=== PATIENT | male | born 1955 | race Caucasian/White ===

== ENCOUNTER 2018-12-30 12:26 | Inpatient (IN) ==
[2018-12-30] MEDS ORDERED: DUONEB (A & A) INH ONE (12:44)
[2018-12-30] MEDS ORDERED: ALBUTEROL NEB INH ONE (12:44)
[2018-12-30] MEDS ORDERED: SOLU-MEDROL IV ONE (12:45)
[2018-12-30 13:21] LABS: BASO# 0.07 X1000 (0.0-0.2); BASO% 0.8 % (0.0-0.8); EOS# 0.62 X1000 (0.0-0.7); HEMATOCRIT 40.5 % (42.0-52.0); HEMOGLOBIN 13.6 g/dL (14.0-18.0); IMM GRAN# 0.08 X1000 (0.0-0.04); IMM GRAN% 0.9 % (0.0-0.5); LYMPH# 1.21 X1000 (1.2-3.4); LYMPH% 13.6 % (20.5-51.1); MCH 27.4 PG (27-31); MCHC 33.6 g/dL (33-37); MCV 81.7 FL (81-99); MONO# 0.54 X1000 (0.11-0.59); MONO% 6.1 % (1.7-9.3); MPV 9.9 FL (7.4-10.4); NEUT# 6.39 X1000 (1.4-6.5); NEUT% 71.6 % (42.2-75.2); PLT 301 X1000 (130-400); RBC 4.96 XMIL (4.7-6.1); RDW 14.6 % (11.5-14.5); WBC 8.91 X1000 (4.8-10.8)
[2018-12-30 13:41] LABS: INR 0.88; PROTIME 12.4 Seconds (11.0-16.0)
[2018-12-30 13:46] LABS: BLOOD TYPE ARTERIAL; HCO3-(ACT) 27.1 mmoll (20.0-26.0); METHB 1.1 % (0.0-1.5); O2(CT) 16.7 mL/dL (15.0-23.0); O2HB 91.6 % (95.0-99.0); PCO2(98.6) 43 mmHg (35-45); PO2(98.6) 59 mmHg (60-100); SAMPLE BLOOD; SAO2 95.1 % (95.0-100.0); pH(98.6) 7.42 (7.35-7.45)
[2018-12-30 13:51] LABS: AGAP 12; ALBUMIN 4.4 g/dL (3.5-5.0); ALKALINE PHOSPHATASE 92 U/L (32-122); BUN 15 mg/dL (8-22); CALCIUM 9.2 mg/dL (8.8-10.2); CHLORIDE 102 mmol/L (98-107); COSMO 284; ESTIMATED GFR > 60; GLUCOSE 91 mg/dL (70-104); GOT 18 U/L (10-34); GPT 20 U/L (10-44); POTASSIUM 4.1 mmol/L (3.5-5.1); SODIUM 142 mmol/L (136-145); TCO2 28 mmol/L (25-35); TOTAL PROTEIN 6.8 g/dL (6.3-8.3)
[2018-12-30 13:52] LABS: ALLEN TEST YES; MODALITY ROOM AIR
--- NOTE | 2018-12-30 14:25 | EKG Report ---
Test Performed on : 12/30/2018 1:24:08 PM Test Reason : SOB Blood Pressure : / mmHG Vent. Rate : 073 BPM Atrial Rate : 073 BPM P-R Int : 136 ms QRS Dur : 094 ms QT Int : 388 ms P-R-T Axes : 036 027 038 degrees QTc Int : 427 ms Normal sinus rhythm. Normal ECG No previous ECGs available Unconfirmed Result
--- NOTE | 2018-12-30 15:02 | Diag Imaging Result Doc PS360 ---
EXAM: CT THORAX/ABD/PELVIS W/CON - 12/30/2018 HISTORY: SOB ECCYMOSES TECHNIQUE: CT thorax and abdomen/pelvis with intravenous contrast COMPARISON: None. FINDINGS: CT thorax: There is a small left pleural effusion. There is mild dependent atelectasis on the left. There is some consolidation in the paraspinal right lower lobe. This is located near thoracic spine osteophytes and conceivably could represent pulmonary contusion. The remainder of the lungs appear essentially clear. There is no pneumothorax identified. There is no mediastinal hematoma or pericardial fluid identified. There are no abnormally enlarged mediastinal or hilar lymph nodes identified. Other than thoracic spondylosis, the visualized bony structures appear grossly intact. CT abdomen/pelvis: There is some subcutaneous edema at the anterior abdominal wall and left lateral abdominal wall. There is no peritoneal or retroperitoneal hematoma identified in the abdomen or pelvis. There is mild hepatosplenomegaly. The liver and spleen show no focal lesion or evidence. There are no substantial abnormalities of the adrenal glands, pancreas, or kidneys (other than a 3.5 cm left renal cyst) identified. There are multiple mildly enlarged retroperitoneal lymph nodes. There are chronic appearing pars interarticularis defects at L4, and there are lumbar spine degenerative changes noted. There is no evidence of bowel obstruction. There is no abnormal bowel wall thickening identified. IMPRESSION: CT thorax: Small left pleural effusion. Focal consolidation at the paraspinal right lower lobe. This is nonspecific but could possibly relate to pulmonary contusion near thoracic spine osteophytes. No pneumothorax. CT abdomen/pelvis: Subcutaneous edema at anterior and left lateral abdominal wall. No evidence of injury within the abdomen or pelvis. Mild hepatosplenomegaly. Retroperitoneal adenopathy. Chronic appearing L4 pars interarticularis defects and lumbar spine degenerative changes noted. This exam was performed using automated exposure control, adjustment of mA or kV according to patient size, and/or use of iterative reconstruction technique. Electronically signed by Atul Jacobs 12/30/2018 2:59 PM
[2018-12-30] MEDS ORDERED: MORPHINE IV ONE (15:10)
--- NOTE | 2018-12-30 15:28 | PROVIDER DOCUMENTATION ---
This chart was entered by Varsha Cantrell Scribe, acting as scribe for Pratik Moya MD. HPI-Respiratory General - General Chief Complaint: General Adult Stated Complaint: BRUSING ABD / BACK Time Seen by Provider: 12/30/18 12:39 Source: patient, family () Allergies/Adverse Reactions: Patient Allergies Allergy/AdvReac Type Severity Reaction Status Date / Time No Known Allergies Allergy Verified 12/30/18 13:20 Home Medications: Home Medication List Medication Instructions Recorded Confirmed Last Taken Type Oxycodone HCl/Acetaminophen 1 ea PO Q4-6H PRN PRN #20 tab 10/28/17 Unknown Rx [Percocet 7.5-325 mg Tablet] Cyclobenzaprine [Flexeril] 10 mg PO TID #20 tab 02/15/18 Unknown Rx Ibuprofen [Motrin] 800 mg PO Q8H PRN PRN #20 tab 02/15/18 Unknown Rx Omeprazole 20 mg PO DAILY #20 tablet. 02/15/18 Unknown Rx - History of Present Illness-Resp Nature of Presenting Problem: 63 yowm presents to the ed with c/o cough, sob, wheezing and erythema noted to lower abd. pt has been to [facility] ED 2x and went to see pcp dr morrison this am and was sent to ed. pt has recent dx of PNA in left lung and has had 2 chest xray in the last 5 days. pt has wheezing on exam and redness and distended abd Quality of Pain: reports: burning Severity in ED: reports: moderate Onset/Duration: reports: 5 days ago Timing: reports: still present, getting worse Context: reports: other (recent dx PNA and given new abx) Cough Quality/Degree: reports: dry cough Episode Frequency: frequent episodes Current Respiratory Medication Therapy: Initiated see nurses note Modifying Factors: worse with: exertion, coughing Associated Symptoms: reports: cough, shortness of breath, wheezing, other (abd pain). denies: chest pain/soreness Similar Symptoms Previously?: Yes (dx with PNA recently at [facility] ER) Recently seen or treated by another doctor?: Yes (saw dr morrison pcp) Review of Systems - Adult - REVIEW OF SYSTEMS - ADULT Constitutional: denies: chills, fever Eyes: reports: no symptoms reported Ears, Nose, Mouth & Throat: reports: no symptoms reported Cardiovascular: denies: chest pain, palpitations Respiratory: reports: see HPI, cough, dyspnea on exertion, shortness of breath, wheezing Gastrointestinal: reports: see HPI, abdominal pain. denies: diarrhea, nausea, vomiting Genitourinary: reports: no symptoms reported Musculoskeletal: denies: back pain, neck pain Integumentary: reports: see HPI, other (erythemia to lower abd) Neurological: denies: dizziness/vertigo, headache/migraines Psychiatric: reports: no symptoms reported Endocrine: reports: no symptoms reported Hematologic/Lymphatic: reports: no symptoms reported Allergic/Immunologic: reports: no symptoms reported All Other Systems: Reviewed and Negative Past History - Adult - PAST MEDICAL HISTORY-ADULT Review of Records: reports: Old Records Reviewed, Nursing Assessment Review, Medications Reviewed, Social history reviewed & non-contributory. Major Childhood Illnesses: reports: denies history Cardiovascular: reports: denies history Respiratory: reports: denies history Gastrointestinal: reports: denies history Genitourinary: reports: denies history Musculoskeletal: reports: chronic pain, intervertebral disc disease Hand Dominance: Right Handed Neurological: reports: denies history Psychiatric: reports: denies history Endocrine/Immune: reports: denies history Other Conditions: reports: denies history - PRIOR SURGERIES/PROCEDURES Surgical/Procedure History: reports: reviewed, not pertinent - IMMUNIZATION STATUS Childhood Immunizations: See Nurse Assessment Flu Vaccine: See Nurse Assessment - FAMILY HISTORY Family History: reviewed, not pertinent - SOCIAL HISTORY Smoking: denies Substance Use: denies Living Situation: family Physical Exam-General - PHYSICAL EXAM-ADULT Initial Vital Signs Reviewed: Yes - CONSTITUTIONAL General Appearance: alert, mild distress, obese - EYES Eyes: PERRL/EOMI, pink conjunctivae - HEAD, EARS, NOSE, MOUTH & THROAT HENMT: moist mucous membranes, normal ENT inspection - NECK Neck: non-tender, supple, normal inspection - RESPIRATORY Respiratory: chest non-tender, respiratory distress (mild), decreased breath sounds (LLL), wheezing (auditory), increased rate (24). negative: normal breath sounds - CARDIOVASCULAR Cardiovascular: normal peripheral pulses, regular rate, rhythm - CHEST (BREASTS) Chest/Breast: deferred - GASTROINTESTINAL (ABDOMEN) Abdominal Exam: normal bowel sounds, distended, tenderness (with palpation), other (erythemia greater on lft then right over lower abd and around to side). negative: guarding, rigid, rebound - LYMPHATIC Lymphatic: no adenopathy - MUSCULOSKELETAL Back Exam: normal inspection, no CVA tenderness, no vertebral tenderness Extremity: normal range of motion, non-tender, normal gait, normal inspection, no calf tenderness, normal capillary refill, pelvis stable - SKIN Integumentary: normal turgor, warm/dry, erythema (lower abd and left side) - NEUROLOGIC Neurologic: grossly normal, no motor/sensory deficits - PSYCHIATRIC Psych/Mental Status: normal mood/affect, normal thought content, normal thought process, oriented x 3 Progress - PLAN OF CARE/RESULTS Progress/Plan/Lab Results: Vital Signs - 8 hr 12/30/18 12:33 12/30/18 13:37 12/30/18 14:39 Temperature 98.1 F Pulse Rate 85 69 86 Respiratory Rate 19 27 H 20 Blood Pressure 143/70 130/70 O2 Sat by Pulse Oximetry 95 93 L 95 Laboratory Results - last 24 hr 12/30/18 12/30/18 12/30/18 13:10 13:10 13:10 WBC 8.91 RBC 4.96 Hgb 13.6 L Hct 40.5 L MCV 81.7 MCH 27.4 MCHC 33.6 RDW Std Deviation 14.6 H Plt Count 301 MPV 9.9 Immature Gran % (Auto) 0.9 H Neut % (Auto) 71.6 Lymph % (Auto) 13.6 L Hoke % (Auto) 6.1 Eos % (Auto) 7.0 Baso % (Auto) 0.8 Immature Gran # (Auto) 0.08 H Neut # (Auto) 6.39 Lymph # (Auto) 1.21 [place]oke # (Auto) 0.54 Eos # (Auto) 0.62 Baso # (Auto) 0.07 PT INR PTT (Actin FS) Specimen Type Sample Site pH pCO2 pO2 HCO3 Base Excess Oxyhemoglobin ABG O2 Sat (Calculated) ABG O2 Saturation ABG Carboxyhemoglobin ABG Methemoglobin Fish Test A-a O2 Difference Total Hemoglobin Lactate Blood Gas Modality FiO2 % Sodium 142 Potassium 4.1 Chloride 102 Carbon Dioxide 28 Anion Gap 12 BUN 15 Creatinine 1.0 Estimated GFR/1.73 m2 > 60 BUN/Creatinine Ratio 15 Glucose 91 Calculated Osmolality 284 Calcium 9.2 Total Bilirubin 0.40 AST 18 ALT 20 Alkaline Phosphatase 92 Troponin T Vkq-J-Ljwwuzkzsse Pept Total Protein 6.8 Albumin 4.4 Globulin 2.0 Albumin/Globulin Ratio 2.0 Plasma Lactate 1.2 12/30/18 12/30/18 12/30/18 13:10 13:10 13:10 WBC RBC Hgb Hct MCV MCH MCHC RDW Std Deviation Plt Count MPV Immature Gran % (Auto) Neut % (Auto) Lymph % (Auto) Hoke % (Auto) Eos % (Auto) Baso % (Auto) Immature Gran # (Auto) Neut # (Auto) Lymph # (Auto) Hoke # (Auto) Eos # (Auto) Baso # (Auto) PT 12.4 INR 0.88 PTT (Actin FS) 25.0 Specimen Type Sample Site pH pCO2 pO2 HCO3 Base Excess Oxyhemoglobin ABG O2 Sat (Calculated) ABG O2 Saturation ABG Carboxyhemoglobin ABG Methemoglobin Fish Test A-a O2 Difference Total Hemoglobin Lactate Blood Gas Modality FiO2 % Sodium Potassium Chloride Carbon Dioxide Anion Gap BUN Creatinine Estimated GFR/1.73 m2 BUN/Creatinine Ratio Glucose Calculated Osmolality Calcium Total Bilirubin AST ALT Alkaline Phosphatase Troponin T < 0.010 Gsy-W-Njgfqlehwre Pept 103 Total Protein Albumin Globulin Albumin/Globulin Ratio Plasma Lactate 12/30/18 13:24 WBC RBC Hgb Hct MCV MCH MCHC RDW Std Deviation Plt Count MPV Immature Gran % (Auto) Neut % (Auto) Lymph % (Auto) Hoke % (Auto) Eos % (Auto) Baso % (Auto) Immature Gran # (Auto) Neut # (Auto) Lymph # (Auto) [place]oke # (Auto) Eos # (Auto) Baso # (Auto) PT INR PTT (Actin FS) Specimen Type ARTERIAL Sample Site R RADIAL pH 7.42 pCO2 43 pO2 59 L HCO3 27.1 H Base Excess 3.0 Oxyhemoglobin 91.6 L ABG O2 Sat (Calculated) 16.7 ABG O2 Saturation 95.1 ABG Carboxyhemoglobin 2.60 H ABG Methemoglobin 1.1 Fish Test YES A-a O2 Difference 37.0 Total Hemoglobin 13.0 Lactate 1.40 Blood Gas Modality ROOM AIR FiO2 % 21.0 Sodium Potassium Chloride Carbon Dioxide Anion Gap BUN Creatinine Estimated GFR/1.73 m2 BUN/Creatinine Ratio Glucose Calculated Osmolality Calcium Total Bilirubin AST ALT Alkaline Phosphatase Troponin T Bso-M-Epqidsmijmo Pept Total Protein Albumin Globulin Albumin/Globulin Ratio Plasma Lactate Orders Category Date Time Status Nursing- Obtain EKG ONCE Care 12/30/18 12:45 Active Saline Loc NOW Care 12/30/18 12:[address] THORAX/ABD/PELVIS W/CON [CT] Stat Exams 12/30/18 14:05 Completed ABG [RESP] Routine Lab 12/30/18 13:24 Completed BLOOD CULTURE [BLDCUL] Stat Lab 12/30/18 13:05 Results CBC WITH ELECTRONIC DIFF [HEME] Stat Lab 12/30/18 13:10 Completed COMPREHENSIVE METABOLIC PANEL [CHEM] Stat Lab 12/30/18 13:10 Completed LACTATE, PLASMA [CHEM] Stat Lab 12/30/18 13:10 Completed PRO B-NATRIURETIC PEPTIDE Stat Lab 12/30/18 13:10 Completed PROTIME WITH INR [COAG] Stat Lab 12/30/18 13:10 Completed PTT [COAG] Stat Lab 12/30/18 13:10 Completed TROPONIN T Stat Lab 12/30/18 13:10 Completed Albuterol 2.5MG/Ipratrop 0.5MG [Duoneb (A & A)] Med 12/30/18 12:44 Discontinued 3 ml INH NOW ONE Albuterol [Albuterol Neb] Med 12/30/18 12:44 Discontinued 10 mg INH NOW ONE Methylprednisolone Sod Succ [Solu-Medrol] Med 12/30/18 12:45 Discontinued 125 mg IV STAT ONE Morphine Med 12/30/18 15:10 Discontinued 4 mg IV NOW ONE Aerosol Treatments Routine Oth 12/30/18 12:44 Active Aerosol Treatments Stat Oth 12/30/18 12:44 Active EKG [EKG] Stat Ther 12/30/18 12:45 Draft Result Diagrams: 12/30/18 13:10 12/30/18 13:10 - REASSESSMENT Reassessment #1 Time Reassessed: 14:03 (lung sounds are much improvement after breathing tx) Status: improving Reassessment Comment: dr moya at bedside Reassessment #2 Time Reassessed: 15:09 (speaking with pt about results of er stay) Status: unchanged Reassessment Comment: dr moya at bedside. WHEEZING IMPROVED BUT PRESENT BILAT - EKG 1 Time of EKG reading by physician:: 13:24 EKG Read and Signed by:: Pratik Moya EKG Interpretation (*Must complete 3 of following elements*): Normal Rate: 73 Rhythm: nsr [place]: normal QRS: normal DC Interval: normal ST Wave: normal - CT/MRI 1 CT Study: Abdomen, Pelvis, other (chest) Impression: See EMR Report (EXAM: CT THORAX/ABD/PELVIS W/CON - 12/30/2018 HISTORY: SOB ECCYMOSES TECHNIQUE: CT thorax and abdomen/pelvis with intravenous contrast COMPARISON: None. FINDINGS: CT thorax: There is a small left pleural effusion. There is mild dependent atelectasis on the left. There is some consolidation in the paraspinal right lower lobe. This is located near thoracic spine osteophytes and conceivably could represent pulmonary contusion. The remainder of the lungs appear essentially clear. There is no pneumothorax identified. There is no mediastinal hematoma or pericardial fluid identified. There are no abnormally enlarged mediastinal or hilar lymph nodes identified. Other than thoracic spondylosis, the visualized bony structures appear grossly intact. CT abdomen/pelvis: There is some subcutaneous edema at the anterior abdominal wall and left lateral abdominal wall. There is no peritoneal or retroperitoneal hematoma identified in the abdomen or pelvis. There is mild hepatosplenomegaly. The liver and spleen show no focal lesion or evidence. There are no substantial abnormalities of the adrenal glands, pancreas, or kidneys (other than a 3.5 cm left renal cyst) identified. There are multiple mildly enlarged retroperitoneal lymph nodes. There are chronic appearing pars interarticularis defects at L4, and there are lumbar spine degenerative changes noted. There is no evidence of bowel obstruction. There is no abnormal bowel wall thickening identified. IMPRESSION: CT thorax: Small left pleural effusion. Focal consolidation at the paraspinal right lower lobe. This is nonspecific but could possibly relate to pulmonary contusion near thoracic spine osteophytes. No pneumothorax. CT abdomen/pelvis: Subcutaneous edema at anterior and left lateral abdominal wall. No evidence of injury within the abdomen or pelvis. Mild hepatosplenomegaly. Retroperitoneal adenopathy. Chronic appearing L4 pars interarticularis defects and lumbar spine degenerative changes noted. This exam was performed using automated exposure control, adjustment of mA or kV according to patient size, and/or use of iterative reconstruction technique. Electronically signed by Atul Jacobs 12/30/2018 2:59 PM 12/30/18 9911 Interpreting Physician: Atul Jacobs MD Dictated Date/Time: 12/30/18 7320 cc: Pratik Moya MD; Ashish Morrison Jr, MD) - CONSULTS/PCP/HOSPITALIST Notification #1 *Consult/PCP/Hospitalist*: hospitalist dr hagen Time Discussed: 15:25 Consult Disposition: Admit Departure - Departure Date of Disposition Decision: 12/30/18 Time of Disposition Decision: 15:26 DIAGNOSIS: Acute respiratory distress, Hypoxia, Bronchospasm, acute Disposition: ADMITTED INPATIENT 09 Certified Medical Emergency: Emergent Condition: Fair Referrals and Follow-Ups: Ashish Morrison Jr, MD [Primary Care Provider] - - Critical Care Note This patient required my direct & personal management of CC.: Yes Total Time (mins): 45 Critical Care Statement: This patient required my direct personal management to treat or rule out processes, the absence of which, could potentiallly result in sudden, clinically significant life or limb threatening deterioration. Attestation - Physician/ LEORA Attestation Patient care was provided by Advanced Practice Provider:: No The physician spent face to face time with patient:: Yes Advanced Practice Provider documentation review:: Supervising physician onsite and consulted in the evaluation and care of this patient. The physician did have a face to face encounter with the patient. This chart was documented by the indicated scribe, (Varsah Cantrell Scribe) and accurately reflects the services I performed and decisions made by me, Pratik Moya MD, as attested by the provider's signature.
[2018-12-30] MEDS ORDERED: DUONEB (A & A) INH PRN (17:27)
[2018-12-30] MEDS ORDERED: LEVAQUIN 500 MG/D5W 500 MG/100 ML IVPB IV SCH (17:27)
[2018-12-30] MEDS ORDERED: TYLENOL PO PRN (17:27)
[2018-12-30] MEDS ORDERED: ZOFRAN IV PRN (17:27)
[2018-12-30] MEDS: LEVAQUIN 750 MG/D5W 750 MG/150 ML IVPB IV SCH (18:55)
[2018-12-30] MEDS: DUONEB (A & A) INH SCH ×2 (19:20→22:36)
--- NOTE | 2018-12-30 19:42 | HISTORY AND PHYSICAL ---
PRIMARY CARE PROVIDER: Ashish Morrison Jr., MD CHIEF COMPLAINT: Shortness of breath. HISTORY OF PRESENT ILLNESS: Mr. Maxwell is a 63-year-old male who carries a past medical history of gout, hypothyroidism, hypertension and hyperlipidemia, who reports that last Thursday he went to [facility] and was diagnosed with pneumonia. He has had a pretty severe cough that has caused him some discomfort and bruising in the abdominal area that is pretty significant. He reports taking 600 mg ibuprofen twice, as well as a whole bottle of 200 mg tablets that was about 20 tablets, over the course of the week. He did tried to brace himself secondary to the pain with the coughing. He states that he bore down hard on the couch and on Thursday when he got up, he had bright purple bruising all across his abdomen. It does look like an older bruise that is in various shades of purples, yellows and green. It does extend across the right to left lower abdomen. Initially when he came into the ED, he was found to be hypoxic and had some expiratory wheezes. He did report that he finished taking his antibiotic and had taken a whole pack of Mucomyst. His laboratory data is essentially unremarkable. His ABG does show a mixed respiratory acidosis and metabolic alkalosis. He has a negative lactate. His CT of the chest, abdomen and pelvis shows a small left pleural effusion; focal consolidation at the paraspinal right lower lobe that was nonspecific but possibly related to pulmonary contusion near the thoracic spine; osteophytes; no pneumothorax; subcutaneous edema at the anterior and left lateral abdominal wall; no evidence of injury within the abdomen or pelvis; mild hepatosplenomegaly and retroperitoneal adenopathy; chronic appealing L4 pars interarticularis defects of the lumbar spine with degenerative changes. He is currently being admitted for asthma exacerbation. We will check a proBNP. He does sound wet in the left lower lobe. He does have some generalized lower extremity edema. He also reports a few weeks ago he has had some intermittent swelling to his bilateral lower extremities. He did have an echocardiogram back on 11/19 that showed an EF of 65%. There was no suggestion of any diastolic dysfunction. He also had venous Doppler studies as well that did not show any DVT or superficial venous thrombosis, but there was some reflux in the left common femoral vein. We will admit him to the medical telemetry floor and continue workup for asthma. PAST MEDICAL HISTORY: 1. Hypothyroidism. 2. Hypertension. 3. Hyperlipidemia. 4. Gout. PAST SURGICAL HISTORY: None. FAMILY HISTORY: Reviewed and noncontributory. SOCIAL HISTORY: He is here with 2 supportive sisters. No history of tobacco. Occasional alcohol. No illicit drug use. He does not Juul or vape. He states only on occasion will he puff on a cigar, but does not inhale, but has not done so any time recently. ALLERGIES: No known drug allergies. MEDICATIONS: Home medications are currently being compiled. DIAGNOSTIC DATA: Chest, abdomen and pelvis CT per HPI. LABORATORY DATA: White count 8, hemoglobin and hematocrit 13 and 40, platelet count is 301,000. ABG: PH 7.42, pCO2 is 43, PO2 is 59, bicarbonate 27, base excess 3, O2 was 91% on room air, lactate 1.4. Sodium 142, potassium 4.1, BUN 15, creatinine 1.0, blood glucose is 91. Troponin was less than 0.010. ProBNP 103. ASSESSMENT AND PLAN: 1. Asthma exacerbation with recent diagnosis of pneumonia. He has had a lot of improvement after being placed on supplemental oxygen, given hour-long breathing treatment as well as a now breathing treatment, high-dose steroids and intravenous morphine. We will add to his regimen and continue him with Levaquin, given his recent diagnosis of pneumonia. Continue intravenous steroids, bronchodilators, aggressive pulmonary toilet. We will need to guard his abdomen with any coughing. Blood cultures are currently pending. Sputum culture has been ordered. 2. Bilateral lower abdominal erythema secondary to cough. I did not appreciate any hematoma. We will continue with p.r.n. p.o. and intravenous pain regimen so the patient will be able to cough comfortably. 3. Hypothyroidism. We will need to continue Synthroid. 4. Gastroesophageal reflux disease. We will continue proton pump inhibitor when verified. 5. Hypertension. We will continue home medications when verified. 6. Hyperlipidemia. We will continue home medications when verified. 7. Further recommendations to follow physician evaluation, laboratory and diagnostic data. Dictated by KINDRA Figueroa for Isaiah Dill MD cc: MD Ashish Vallejo MD [facility]
[2018-12-30] MEDS ORDERED: SOLU-MEDROL IV SCH (21:00)
--- NOTE | 2018-12-30 21:02 | HISTORY AND PHYSICAL ---
ADDENDUM: Patient seen and examined by myself. Full note dictated and discussed with nurse practitioner. The patient presented initially with significant bruising on his abdomen. CT did not show any true lesion or bleeding but did show some soft tissue bruising. He has had a cough, congestion, shortness of breath, wheezing. I expect the coughing is what caused his abdominal wall bruising. He has had no fall. We will admit him to the hospital. IV fluids, steroids, antibiotics, oxygen, and will follow. cc: Isaiah Dill MD
[2018-12-30] MEDS: SOLU-MEDROL IV SCH (21:48)
[2018-12-30] MEDS: MORPHINE IV PRN (22:11)
[2018-12-31] MEDS: DUONEB (A & A) INH SCH ×6 (03:09→23:13)
[2018-12-31] MEDS: SOLU-MEDROL IV SCH ×3 (05:43→20:33)
[2018-12-31 06:09] LABS: BASO# 0.01 X1000 (0.0-0.2); BASO% 0.1 % (0.0-0.8); EOS# 0.01 X1000 (0.0-0.7); EOS% 0.1 % (0.0-10.0); HEMATOCRIT 39.1 % (42.0-52.0); IMM GRAN# 0.09 X1000 (0.0-0.04); IMM GRAN% 0.7 % (0.0-0.5); LYMPH# 0.72 X1000 (1.2-3.4); LYMPH% 5.2 % (20.5-51.1); MCH 26.8 PG (27-31); MCHC 33.2 g/dL (33-37); MCV 80.6 FL (81-99); MONO# 0.27 X1000 (0.11-0.59); NEUT# 12.65 X1000 (1.4-6.5); NEUT% 91.9 % (42.2-75.2); PLT 326 X1000 (130-400); RBC 4.85 XMIL (4.7-6.1); RDW 14.2 % (11.5-14.5); WBC 13.75 X1000 (4.8-10.8)
[2018-12-31 06:36] LABS: AGAP 14; ALBUMIN 4.2 g/dL (3.5-5.0); ALKALINE PHOSPHATASE 87 U/L (32-122); BUN 19 mg/dL (8-22); CALCIUM 8.9 mg/dL (8.8-10.2); CHLORIDE 102 mmol/L (98-107); COSMO 286; ESTIMATED GFR > 60; GLUCOSE 180 mg/dL (70-104); GOT 14 U/L (10-34); GPT 20 U/L (10-44); POTASSIUM 4.4 mmol/L (3.5-5.1); SODIUM 140 mmol/L (136-145); TCO2 24 mmol/L (25-35); TOTAL PROTEIN 6.8 g/dL (6.3-8.3)
--- NOTE | 2018-12-31 06:52 | Diag Imaging Result Doc PS360 ---
EXAM: CHEST-PORTABLE HISTORY: short of breath TECHNIQUE: Portable chest single view COMPARISON: None FINDINGS: Poor inspiratory effort. No cardiomegaly. There is atelectasis in the left base. No pleural effusions identified. No consolidation. IMPRESSION: Basilar atelectasis Electronically signed by Nabor Gregory 12/31/2018 6:50 AM
[2018-12-31 07:12] LABS: LYMPHS 8 % (21-51); MONO 1 % (1-9); SEGS 91 % (42-75)
[2018-12-31] MEDS: MORPHINE IV PRN (12:09)
[2018-12-31] MEDS ORDERED: MAALOX PLUS LIQUID PO ONE (13:52)
--- NOTE | 2018-12-31 17:52 | PROGRESS NOTE ---
DATE: 12/31/2018 SUBJECTIVE: Patient notes he is feeling a lot better, still having some coughing and shortness of breath but moving air better, less wheezing. Denies any fevers or chills. Abdomen is nontender. OBJECTIVE: Vital signs: Temperature 98 degrees, pulse 84, respiratory rate 18, BP 132/76. General: Patient is awake, currently in no distress. Very pleasant. HEENT: Normocephalic. Neck: Supple. Cardiovascular: Regular rate. Chest: Clear currently with occasional faint wheezing, better air movement air movement than last night in the ER. Abdomen: Soft, obese, nondistended, nontender. Extremities: Moves all extremities, no edema. Neurologic: No focal changes. He is awake, alert, oriented x3. Skin: Still has bruising on his abdominal wall. No other bruising noted. No rashes. ASSESSMENT: 1. Abdominal wall bruising, stable. 2. Asthma exacerbation. 3. Hypothyroidism. 4. Hypertension. 5. Hyperlipidemia. 6. Obesity. PLAN: We will continue patient in the hospital, continue Solu-Medrol. We will decrease to 40 IV q.8. Continue breathing treatments, oxygen. Further orders as needed. cc: Isaiah Dill MD
[2018-12-31] MEDS: LEVAQUIN 750 MG/D5W 750 MG/150 ML IVPB IV SCH (17:54)
[2019-01-01] MEDS: DUONEB (A & A) INH SCH ×6 (03:29→22:35)
[2019-01-01] MEDS: SOLU-MEDROL IV SCH ×2 (03:54→16:01)
[2019-01-01] MEDS ORDERED: LEVAQUIN 750 MG/D5W 750 MG/150 ML IVPB IV SCH (07:57)
[2019-01-01] MEDS ORDERED: ROBITUSSIN-AC PO PRN (09:34)
[2019-01-01] MEDS: MORPHINE IV PRN (10:10)
[2019-01-01] MEDS: LEVAQUIN PO SCH (16:01)
--- NOTE | 2019-01-01 17:30 | EKG Report ---
Test Performed on : 01/01/2019 5:19:50 PM Test Reason : CP Blood Pressure : / mmHG Vent. Rate : 085 BPM Atrial Rate : 085 BPM P-R Int : 136 ms QRS Dur : 106 ms QT Int : 344 ms P-R-T Axes : 045 005 031 degrees QTc Int : 409 ms Normal sinus rhythm. Moderate voltage criteria for LVH, may be normal variant Nonspecific T wave abnormality Abnormal ECG When compared with ECG of 30-DEC-2018 13:24, (Unconfirmed) Nonspecific T wave abnormality now evident in Inferior leads Nonspecific T wave abnormality, worse in Lateral leads Confirmed by Graham Paulino MD ([id number]) on 01/02/2019 11:26:11 AM
--- NOTE | 2019-01-01 17:44 | PROGRESS NOTE ---
DATE: 01/01/2019 SUBJECTIVE: Patient notes he is feeling a lot better, although still having some wheezing, still having some cough and shortness of breath. Denies any fevers or chills. OBJECTIVE: Vital Signs: Temperature 97.4, pulse 103, respiratory rate 18, BP 145/76. General: Patient is awake. He is currently in minimal respiratory distress. HEENT: Normocephalic. Neck: Supple. Cardiovascular: Regular rate. No murmurs. Chest: Minimal faint wheezing. Improved air movement equal bilaterally. No crackles. Abdomen: Soft, obese, nondistended. draw frame tender, mainly in the left lower quadrant from his skin bruising. Extremities: Moves all extremities, no edema. Neurologic: No focal changes. ASSESSMENT: 1. Chronic obstructive pulmonary disease with exacerbation. 2. Abdominal wall bruising secondary to coughing. 3. Hypothyroidism. 4. Hypertension. 5. Obesity. PLAN: We will continue patient in the hospital. Wean steroids. Continue breathing treatments. Hopefully, he can improve and be discharged home tomorrow. cc: Isaiah Dill MD
[2019-01-02] MEDS: DUONEB (A & A) INH SCH ×4 (03:23→15:19)
[2019-01-02] MEDS: SOLU-MEDROL IV SCH ×2 (04:15→16:09)
[2019-01-02] MEDS: PERCOCET-5 PO PRN ×3 (04:23→16:06)
--- NOTE | 2019-01-02 11:40 | Diag Imaging Result Doc PS360 ---
EXAM: CT THORAX W/WO CONTRAST 01/02/2019 HISTORY: contusion vs pneumonia TECHNIQUE: This exam was performed using automated exposure control, adjustment of mA or kV according to patient size, and/or use of iterative reconstruction technique. COMMENT: The current study is compared with the previous examination of 12/30/2018. There is some pleural-based nodules in the right lower lobe medially which have not changed significantly in appearance. This may be due to granulomatous disease. There is atelectasis in the posterior costophrenic sulcus of the right lower lobe which has worsened since the previous study. This is also the case in the left costophrenic sulcus. There is atelectasis in the lingula which has worsened. There is a small pleural fluid collection in the left costophrenic sulcus which was also present previously. The mediastinum and aorta are stable in appearance. The regional skeleton is intact. IMPRESSION: Left pleural effusion and bibasilar atelectasis. Pleural-based nodules in the left lower lobe which are stable in appearance. Follow-up in 3-6 months may be desirable to ensure their stability. Electronically signed by Derek Boggs 01/02/2019 11:37 AM
[2019-01-02 12:36] VITALS: BP 145/80
[2019-01-02] MEDS: LEVAQUIN PO SCH (16:07)
--- NOTE | 2019-01-03 08:29 | PROGRESS NOTE ---
DATE: 01/02/2019 SUBJECTIVE: Patient notes that his cough is worse today than it was yesterday. Still nonproductive. Still hurts intensely in his abdomen when he coughs. Denies any fevers, chills. Denies any production to his cough. Still having some shortness of breath. OBJECTIVE: VITAL SIGNS: Temperature 98, pulse 87, respiratory 18, BP 134/84. GENERAL: Patient is in minimal respiratory distress. This improves after his coughing episodes pass. HEENT: Normocephalic. NECK: Supple. CARDIOVASCULAR: Regular rate. CHEST: Clear. ABDOMEN: Soft. Positive bruising on his abdominal wall. Tender only over the bruising. EXTREMITIES: Moves all extremities. ASSESSMENT: 1. Asthma with exacerbation. 2. Abdominal wall bruising. 3. Hypothyroidism. 4. Hypertension. 5. Hyperlipidemia. PLAN: We will continue the patient in the hospital today. Continue Solu-Medrol, breathing treatments, oxygen. We will check a CT of his chest due to his persistent coughing and will follow. cc: Isaiah Dill MD
--- NOTE | 2019-01-03 19:02 | DISCHARGE SUMMARY ---
ADMISSION DATE: 12/30/2018 DISCHARGE DATE: 01/02/2019 DISCHARGE DIAGNOSES: 1. Asthma exacerbation, resolved. 2. Pleural effusion, improved. 3. Bilateral lower extremity erythema. 4. Abdominal wall hematoma. 5. Hypothyroidism. 6. Morbid obesity. 7. Hypertension. 8. Hyperlipidemia. CONSULTATIONS: None. PROCEDURES: None. BRIEF HOSPITAL COURSE: The patient is a 63-year-old male who presented the hospital, treated in usual fashion, placed on Solu-Medrol, breathing treatments, oxygen. Thankfully, he continued to improve. On discharge, patient is in no distress and therefore will be discharged home. DISPOSITION: Patient will be discharged home with antibiotics, Robitussin with codeine cough syrup. He will follow up outpatient with primary care of his choice. cc: Isaiah Dill MD
== END 2019-01-02 17:14 | disposition home or self-care (01) | DRG 202 ==
LOC: P.ED 12:26 → P.MEDSURG 17:25
PROVIDERS: ATTEND Family Medicine

== ENCOUNTER 2019-01-24 17:31 | Inpatient (IN) ==
[2019-01-24] MEDS ORDERED: ASPIRIN PO ONE (17:43)
--- NOTE | 2019-01-24 17:51 | PROVIDER DOCUMENTATION ---
HPI-Respiratory General - General Chief Complaint: Shortness of Breath Stated Complaint: RETURN / REVISIT Time Seen by Provider: 01/24/19 17:48 Source: patient Allergies/Adverse Reactions: Patient Allergies Allergy/AdvReac Type Severity Reaction Status Date / Time No Known Allergies Allergy Verified 12/30/18 13:20 Home Medications: Home Medication List Medication Instructions Recorded Confirmed Last Taken Type Albuterol Sulfate [Proair Hfa] 1 - 2 puff INH Q4-6H PRN PRN 12/30/18 12/30/18 Unknown History Amlodipine Besylate 10 mg PO DAILY 12/30/18 12/30/18 Unknown History Gabapentin 600 mg PO TID 12/30/18 12/30/18 Unknown History Guaifenesin/Codeine Phosphate 1 tsp PO Q4-6H PRN PRN 12/30/18 12/30/18 Unknown History [Codeine-Guaifen 10-100 mg/5 ml] Hydrocodone/Acetaminophen 1 ea PO Q8H PRN PRN 12/30/18 12/30/18 Unknown History [Hydrocodone-Acetamin 5-325 mg] Doxycycline 100 mg PO BID #10 tab 01/02/19 Unknown Rx Guaifenesin/Codeine [Robitussin-AC] 10 ml PO Q4-6H PRN PRN #6 oz 01/02/19 Unknown Rx Levofloxacin 750 mg PO .DAILY FOR 5 DAYS #5 tab 01/02/19 Unknown Rx Methylprednisolone [Medrol Dosepak] 4 mg PO .PER PACKAGE #1 pkg 01/02/19 Unknown Rx - History of Present Illness-Resp Nature of Presenting Problem: Patient is a 63 year old obese white male with history of recent pneumonia requiring hospitalization, chronic back pain, HTN,thyroid disease, and hyperlipidemia complaining of increasing shortness of breath, nonproductive cough, and left sided sharp pleuritic chest discomfort since yesterday. Denies fever or history of CAD. Followed by Dr. Morrison. Review of Systems - Adult - REVIEW OF SYSTEMS - ADULT Constitutional: denies: chills, fever Eyes: reports: no symptoms reported Ears, Nose, Mouth & Throat: reports: no symptoms reported Cardiovascular: reports: see HPI. denies: chest pain Respiratory: reports: cough, pleurisy, shortness of breath Gastrointestinal: denies: abdominal pain, diarrhea, nausea, vomiting Genitourinary: denies: dysuria Musculoskeletal: reports: no symptoms reported Integumentary: denies: rash Neurological: reports: no symptoms reported Psychiatric: reports: anxiety Endocrine: reports: no symptoms reported Hematologic/Lymphatic: reports: no symptoms reported Allergic/Immunologic: reports: no symptoms reported All Other Systems: Reviewed and Negative Past History - Adult - PAST MEDICAL HISTORY-ADULT Review of Records: reports: Old Records Reviewed, Nursing Assessment Review, M edications Reviewed, Social history reviewed & non-contributory. Major Childhood Illnesses: reports: denies history Cardiovascular: reports: HTN, hyperlipidemia Respiratory: reports: pneumonia Gastrointestinal: reports: denies history Genitourinary: reports: denies history Musculoskeletal: reports: chronic pain, intervertebral disc disease Psychiatric: reports: anxiety - PRIOR SURGERIES/PROCEDURES Surgical/Procedure History: reports: none, reviewed, not pertinent - IMMUNIZATION STATUS Childhood Immunizations: See Nurse Assessment Flu Vaccine: See Nurse Assessment - FAMILY HISTORY Family History: reviewed, not pertinent - SOCIAL HISTORY Smoking: denies Substance Use: denies Alcohol Use Frequency: occasionally Living Situation: family Physical Exam-General - CONSTITUTIONAL General Appearance: alert, no apparent distress, anxious, other (ambulatory , nondiaphoretic) - EYES Eyes: other (clear) - HEAD, EARS, NOSE, MOUTH & THROAT HENMT: normocephalic/atraumatic, moist mucous membranes, normal ENT inspection - NECK Neck: non-tender, full range of motion, supple - RESPIRATORY Respiratory: decreased breath sounds, wheezing (scattered wheezing with decreased excursion) - CARDIOVASCULAR Cardiovascular: regular rate, rhythm - GASTROINTESTINAL (ABDOMEN) Abdominal Exam: normal bowel sounds, non tender, soft - LYMPHATIC Lymphatic: no adenopathy - MUSCULOSKELETAL Back Exam: normal inspection, no CVA tenderness Extremity: normal range of motion, non-tender Peripheral Pulses: radial (R): 2+, radial (L): 2+ - SKIN Integumentary: normal color, normal turgor, warm/dry - NEUROLOGIC Neurologic: grossly normal - PSYCHIATRIC Psych/Mental Status: oriented x 3, anxious Progress - PLAN OF CARE/RESULTS Progress/Plan/Lab Results: Vital Signs - 8 hr 01/24/19 17:39 01/24/19 17:42 01/24/19 18:11 Temperature 98.2 F Pulse Rate 85 78 Respiratory Rate 20 24 30 H Blood Pressure 119/74 O2 Sat by Pulse Oximetry 96 96 Laboratory Results - last 24 hr 01/24/19 01/24/19 01/24/19 17:00 18:07 18:07 WBC 6.85 RBC 4.16 L Hgb 11.1 L Hct 33.8 L MCV 81.3 MCH 26.7 L MCHC 32.8 L RDW Std Deviation 14.8 H Plt Count 250 MPV 9.6 Immature Gran % (Auto) 0.7 H Neut % (Auto) 64.3 Lymph % (Auto) 19.7 L Nye % (Auto) 9.8 H Eos % (Auto) 5.1 Baso % (Auto) 0.4 Immature Gran # (Auto) 0.05 H Neut # (Auto) 4.40 Lymph # (Auto) 1.35 Nye # (Auto) 0.67 H Eos # (Auto) 0.35 Baso # (Auto) 0.03 PT INR PTT (Actin FS) D-Dimer, Quantitative 1.68 H Specimen Type ARTERIAL Sample Site R BRACHIAL pH 7.46 H pCO2 40 pO2 83 HCO3 28.2 H Base Excess 4.2 H Oxyhemoglobin 95.1 ABG O2 Sat (Calculated) 16.0 ABG O2 Saturation 98.4 ABG Carboxyhemoglobin 2.40 ABG Methemoglobin 1.0 Fish Test NO A-a O2 Difference 67.0 Total Hemoglobin 11.9 Lactate 0.60 Liter Flow 2.0 Blood Gas Modality CANNULA FiO2 % 28.0 Sodium Potassium Chloride Carbon Dioxide Anion Gap BUN Creatinine Estimated GFR/1.73 m2 BUN/Creatinine Ratio Glucose Calculated Osmolality Calcium Total Bilirubin AST ALT Alkaline Phosphatase Creatine Kinase Creatine Kinase Index CK-MB (CK-2) Troponin T Sxp-H-Qmgaixbdlje Pept Total Protein Albumin Globulin Albumin/Globulin Ratio 01/24/19 01/24/19 01/24/19 18:07 18:07 18:07 WBC RBC Hgb Hct MCV MCH MCHC RDW Std Deviation Plt Count MPV Immature Gran % (Auto) Neut % (Auto) Lymph % (Auto) Nye % (Auto) Eos % (Auto) Baso % (Auto) Immature Gran # (Auto) Neut # (Auto) Lymph # (Auto) Nye # (Auto) Eos # (Auto) Baso # (Auto) PT 13.7 INR 1.00 PTT (Actin FS) 28.6 D-Dimer, Quantitative Specimen Type Sample Site pH pCO2 pO2 HCO3 Base Excess Oxyhemoglobin ABG O2 Sat (Calculated) ABG O2 Saturation ABG Carboxyhemoglobin ABG Methemoglobin Fish Test A-a O2 Difference Total Hemoglobin Lactate Liter Flow Blood Gas Modality FiO2 % Sodium 140 Potassium 3.8 Chloride 103 Carbon Dioxide 25 Anion Gap 12 BUN 14 Creatinine 1.2 Estimated GFR/1.73 m2 > 60 BUN/Creatinine Ratio 12 Glucose 105 H Calculated Osmolality 280 Calcium 8.7 L Total Bilirubin 0.40 AST 25 ALT 24 Alkaline Phosphatase 100 Creatine Kinase 249 H Creatine Kinase Index 1.3 CK-MB (CK-2) 3.32 Troponin T Hdc-L-Pdpinczefbn Pept 90 Total Protein 6.3 Albumin 4.2 Globulin 2.0 Albumin/Globulin Ratio 2.0 01/24/19 18:07 WBC RBC Hgb Hct MCV MCH MCHC RDW Std Deviation Plt Count MPV Immature Gran % (Auto) Neut % (Auto) Lymph % (Auto) Nye % (Auto) Eos % (Auto) Baso % (Auto) Immature Gran # (Auto) Neut # (Auto) Lymph # (Auto) Nye # (Auto) Eos # (Auto) Baso # (Auto) PT INR PTT (Actin FS) D-Dimer, Quantitative Specimen Type Sample Site pH pCO2 pO2 HCO3 Base Excess Oxyhemoglobin ABG O2 Sat (Calculated) ABG O2 Saturation ABG Carboxyhemoglobin ABG Methemoglobin Fish Test A-a O2 Difference Total Hemoglobin Lactate Liter Flow Blood Gas Modality FiO2 % Sodium Potassium Chloride Carbon Dioxide Anion Gap BUN Creatinine Estimated GFR/1.73 m2 BUN/Creatinine Ratio Glucose Calculated Osmolality Calcium Total Bilirubin AST ALT Alkaline Phosphatase Creatine Kinase Creatine Kinase Index CK-MB (CK-2) Troponin T < 0.010 Try-Q-Vapvzsiayhn Pept Total Protein Albumin Globulin Albumin/Globulin Ratio Orders Category Date Time Status Admit - [facility] Routine AdmDCTranf 01/24/19 20:31 Active Cardiac Monitoring DIRECTED Care 01/24/19 17:43 Active Oxygen Therapy- ED Nursing DIRECTED Care 01/24/19 17:43 Active Resuscitation Status Routine Care 01/24/19 20:31 Ordered Saline Loc NOW Care 01/24/19 17:43 Active Vital Signs Order ROUTINE Care 01/24/19 20:31 Active Z-Document. for Tele Applied ORDERED Care 01/24/19 20:32 Active NPO Diet 01/24/19 20:33 Active CHEST-2 VIEWS [RAD] Stat Exams 01/24/19 17:43 Completed CTA [CT ANGIOGRM PULMONARY ARTERIES] [CT] Stat Exams 01/24/19 20:15 Ordered ABG [RESP] Routine Lab 01/24/19 17:00 Completed CBC WITH ELECTRONIC DIFF [HEME] Stat Lab 01/24/19 18:07 Completed CK PROFILE [SP CHEM] Stat Lab 01/24/19 18:07 Completed COMPREHENSIVE METABOLIC PANEL [CHEM] Stat Lab 01/24/19 18:07 Completed D-DIMER [COAG] Stat Lab 01/24/19 18:07 Completed PRO B-NATRIURETIC PEPTIDE Stat Lab 01/24/19 18:07 Completed PROTIME WITH INR [COAG] Stat Lab 01/24/19 18:07 Completed PTT [COAG] Stat Lab 01/24/19 18:07 Completed TROPONIN T Stat Lab 01/24/19 18:07 Completed Albuterol 2.5MG/Ipratrop 0.5MG [Duoneb (A & A)] Med 01/24/19 17:56 Discontinued 3 ml INH NOW ONE Aspirin Med 01/24/19 17:43 Discontinued 325 mg PO NOW ONE Levofloxacin 750 mg/D5w [Levaquin 750 mg/D5w] Med 01/24/19 20:10 Active 750 mg in 150 ml IV NOW Methylprednisolone Sod Succ [Solu-Medrol] Med 01/24/19 18:21 Discontinued 125 mg .ROUTE .STK-MED ONE Methylprednisolone Sod Succ [Solu-Medrol] Med 01/24/19 17:57 Discontinued 125 mg IV NOW ONE Aerosol Treatments Routine Oth 01/24/19 17:56 Completed Aerosol Treatments Stat Oth 01/24/19 17:56 Completed CP/SOB/Palp >45 yrs of Age Stat Oth 01/24/19 17:43 Ordered Oxygen Device Routine Oth 01/24/19 20:32 Active Telemetry [OM.EQ] Routine Oth 01/24/19 20:31 Active EKG [EKG] Stat Ther 01/24/19 17:43 Draft Transfer/Admit Order [TRANSFER] Routine Transfer 01/24/19 20:33 Ordered Result Diagrams: 01/24/19 18:07 01/24/19 18:07 - CONSULTS/PCP/HOSPITALIST Notification #1 *Consult/PCP/Hospitalist*: dr. Hale Time Discussed: 20:10 Reason/Comments: transfer to [facility] to hospitalist with pulmonary consult #2 Consult: Dr. Chase,pulmonary Time Discussed: 20:15 Reason/Comments: admit to [facility] hospitalist Consult Disposition: Admit #3 Consult: Dr. Berghospitalist Time Discussed: 20:30 Consult Disposition: Admit Departure - Departure Date of Disposition Decision: 01/24/19 Time of Disposition Decision: 20:34 DIAGNOSIS: Pleural effusion, Hypoxia Disposition: ADMITTED INPATIENT 09 Certified Medical Emergency: Emergent Condition: Stable Referrals and Follow-Ups: Asihsh Morrison Jr, MD [Primary Care Provider] - - Critical Care Note This patient required my direct & personal management of CC.: No Attestation - Physician/ LEORA Attestation Patient care was provided by Advanced Practice Provider:: No The physician spent face to face time with patient:: Yes Advanced Practice Provider documentation review:: Supervising physician onsite and consulted in the evaluation and care of this patient. The physician did have a face to face encounter with the patient.
[2019-01-24] MEDS ORDERED: DUONEB (A & A) INH ONE (17:56)
[2019-01-24] MEDS ORDERED: SOLU-MEDROL IV ONE (17:57)
[2019-01-24 18:16] LABS: BASO# 0.03 X1000 (0.0-0.2); BASO% 0.4 % (0.0-0.8); EOS# 0.35 X1000 (0.0-0.7); EOS% 5.1 % (0.0-10.0); HEMATOCRIT 33.8 % (42.0-52.0); HEMOGLOBIN 11.1 g/dL (14.0-18.0); IMM GRAN# 0.05 X1000 (0.0-0.04); IMM GRAN% 0.7 % (0.0-0.5); LYMPH# 1.35 X1000 (1.2-3.4); LYMPH% 19.7 % (20.5-51.1); MCH 26.7 PG (27-31); MCHC 32.8 g/dL (33-37); MCV 81.3 FL (81-99); MONO# 0.67 X1000 (0.11-0.59); MONO% 9.8 % (1.7-9.3); MPV 9.6 FL (7.4-10.4); NEUT% 64.3 % (42.2-75.2); PLT 250 X1000 (130-400); RBC 4.16 XMIL (4.7-6.1); RDW 14.8 % (11.5-14.5); WBC 6.85 X1000 (4.8-10.8)
[2019-01-24 18:18] LABS: BE 4.2 mmoll (-3.0-3.0); BLOOD TYPE ARTERIAL; HCO3-(ACT) 28.2 mmoll (20.0-26.0); O2HB 95.1 % (95.0-99.0); PCO2(98.6) 40 mmHg (35-45); PO2(98.6) 83 mmHg (60-100); SAMPLE BLOOD; SAO2 98.4 % (95.0-100.0); THB 11.9 g/dL (11.5-17.4); pH(98.6) 7.46 (7.35-7.45)
[2019-01-24 18:19] LABS: ALLEN TEST NO; MODALITY CANNULA
[2019-01-24] MEDS ORDERED: SOLU-MEDROL ONE (18:21)
[2019-01-24 18:27] LABS: PROTIME 13.7 Seconds (11.0-16.0)
[2019-01-24 18:28] LABS: PTT 28.6 Seconds (22.3-41.8)
[2019-01-24 18:35] LABS: AGAP 12; ALBUMIN 4.2 g/dL (3.5-5.0); ALKALINE PHOSPHATASE 100 U/L (32-122); BUN 14 mg/dL (8-22); CALCIUM 8.7 mg/dL (8.8-10.2); CHLORIDE 103 mmol/L (98-107); COSMO 280; CREATININE 1.2 mg/dL (0.7-1.2); ESTIMATED GFR > 60; GLUCOSE 105 mg/dL (70-104); GOT 25 U/L (10-34); GPT 24 U/L (10-44); POTASSIUM 3.8 mmol/L (3.5-5.1); SODIUM 140 mmol/L (136-145); TCO2 25 mmol/L (25-35); TOTAL PROTEIN 6.3 g/dL (6.3-8.3)
[2019-01-24 18:39] LABS: CK PROFILE 249 U/L (24-204)
[2019-01-24 18:53] LABS: CK INDEX 1.3 (0.0-2.5); CK-MB 3.32 ng/mL (0.0-5.0)
--- NOTE | 2019-01-24 19:41 | Diag Imaging Result Doc PS360 ---
EXAM: CHEST-2 VIEWS INDICATION: sob cough TECHNIQUE: 2 views COMPARISON: 12/31/2018 FINDINGS: There has been development of a large left pleural effusion that appears to be at least partially loculated. There is adjacent left basilar atelectasis and/or infiltrate. No consolidation can be identified on the right. The cardiac silhouette is grossly unremarkable. IMPRESSION: Interval development of a large left pleural effusion that is at least partially loculated with adjacent atelectasis and/or infiltrate. Electronically signed by Aris Khalil 01/24/2019 7:39 PM
[2019-01-24] MEDS ORDERED: LEVAQUIN 750 MG/D5W 750 MG/150 ML IVPB IV ONE (20:10)
--- NOTE | 2019-01-24 20:19 | EKG Report ---
Test Performed on : 01/24/2019 6:52:55 PM Test Reason : sob chest pain Blood Pressure : / mmHG Vent. Rate : 082 BPM Atrial Rate : 082 BPM P-R Int : 144 ms QRS Dur : 094 ms QT Int : 364 ms P-R-T Axes : 032 003 004 degrees QTc Int : 425 ms Normal sinus rhythm. Normal ECG When compared with ECG of 01-JAN-2019 17:19, Nonspecific T wave abnormality no longer evident in Lateral leads Unconfirmed Result
--- NOTE | 2019-01-24 21:54 | Diag Imaging Result Doc PS360 ---
EXAM: CT ANGIOGRM PULMONARY ARTERIES INDICATION: sob,elevated d-dimer,pleural effusion TECHNIQUE: This exam was performed using automated exposure control, adjustment of mA or kV according to patient size, and/or use of iterative reconstruction technique. Thin section axial images and 3-D MIPS were obtained. COMPARISON: 01/02/2019 FINDINGS: There is no evidence of pulmonary embolism. There is no evidence of aortic dissection or aneurysm. There is no cardiomegaly. There is no evidence of significant mediastinal lymphadenopathy. There is a large partially loculated pleural effusion on the left. There is marked left lower lobe atelectasis and only slightly less severe left upper lobe atelectasis. Pleural fluid may actually be tracking into the soft tissues at the left lateral chest wall. There is thickening of the soft tissues in this region. The pleural-based nodules in the medial right lower lobe study has not changed. Limited views of the upper abdomen are essentially unremarkable. IMPRESSION: 1.Very large loculated pleural effusion on the left that may simply be tracking into the soft tissues at the left lower lateral chest wall. 2.Stable nodularity at the medial right lower lobe. 3.No evidence of pulmonary embolism. Electronically signed by Aris Khalil 01/24/2019 9:52 PM
[2019-01-24] MEDS ORDERED: ROCEPHIN 1 GM in NS 50 ML IV SCH (23:03)
[2019-01-24] MEDS ORDERED: TYLENOL PO PRN (23:03)
[2019-01-24] MEDS ORDERED: DOXYCYCLINE 100 MG in NS 250 ML IV SCH (23:30)
[2019-01-24] MEDS ORDERED: VANCOMYCIN 1 GM/NS 1 GM/250 ML IVPB IV ONE (23:30)
[2019-01-24] MEDS ORDERED: MAXIPIME 2 GM in NS 100 ML IV ONE (23:30)
[2019-01-24] MEDS: NEURONTIN PO SCH (23:47)
--- NOTE | 2019-01-25 01:31 | HISTORY AND PHYSICAL ---
CHIEF COMPLAINT: Shortness of breath. HISTORY OF PRESENT ILLNESS: Mr. Maxwell is a 63-year-old male who was recently admitted to our service on 12/30/2018, and treated for community-acquired pneumonia. He stayed for around 4 days and was discharged. He followed up with his primary care provider, Dr. Ashish Morrison, who stated everything was fine. Around 2-3 days ago the patient started having progressive shortness of breath. Today he started having shortness of breath that was significant. He could not catch his breath so he came into the emergency room. He denied any type of cough, fever, chills, congestion, chest pain. Chest x-ray was obtained which showed a large left pleural effusion. Pulmonary arteriogram showed a very large loculated pleural effusion on the left may simply be tracking into the soft tissue at the left lower lateral chest wall. Stable nodule at the medial right lower lobe plus/minus infiltrate. Will admit the patient to [facility] for pulmonology consultation, further evaluation and treatment. PAST MEDICAL HISTORY: Pneumonia, hypertension, hypothyroidism, hyperlipidemia, gout. PREVIOUS SURGICAL HISTORY: None. FAMILY HISTORY: Mother had diabetes mellitus. Father in a car accident. Had no chronic illnesses. SOCIAL HISTORY: Lives alone. Has 2 supportive sisters. No cigarettes. Does occasionally puff a cigar. Occasional alcohol. Does not drink weekly. ALLERGIES: NO KNOWN DRUG ALLERGIES. HOME MEDICATIONS: Albuterol 1-2 puffs q.4-6 hours, Medrol Dosepak 4 mg p.o. as directed, amlodipine 10 mg p.o. daily, Synthroid 50 mcg daily, Neurontin 600 mg p.o. t.i.d. REVIEW OF SYSTEMS: A 14 point review of systems was conducted with the patient. Pertinent positives are listed in above in HPI. All other systems were reviewed and found to be negative. PHYSICAL EXAMINATION: VITAL SIGNS: Temperature 97.9, pulse 79, respirations 18, blood pressure 132/75, oxygen saturation 95% on 2 liters nasal cannula. GENERAL: Very pleasant 63-year-old male lying in the medical floor bed. Answers all questions appropriately. He is alert and oriented x3. HEENT: Head is atraumatic, normocephalic. Pupils equal, round, react to light. Extraocular eye movements are intact. Sclerae anicteric. Conjunctiva are pale. Oral mucosa is moist. NECK: Supple. No JVD, no thyromegaly. Trachea is midline. No cervical lymphadenopathy. CARDIAC: S1, S2 appreciated. No murmurs, gallops, rubs. LUNGS: Decreased bilaterally left greater than right. No rhonchi, wheezes, rales. Symmetrical rise and fall with respirations. ABDOMEN: Protuberant, soft, nondistended, nontender. Bowel sounds present all 4 quadrants, normoactive. No pulsatile masses or organomegaly. EXTREMITIES: No clubbing, cyanosis or edema. 2+ pedal pulses bilaterally. NEUROLOGICAL: Alert and oriented x3. No focal motor deficit. Otherwise nonfocal examination. INTEGUMENTARY: Warm, dry and intact. No acute lesions or rash. DIAGNOSTIC DATA: Chest x-ray interval development of a large left pleural effusion, at least partially loculated, with adjacent atelectasis and/or infiltrate. CT angio confirms large pleural effusion. No PE. LABORATORY DATA: WBC 6.85, hemoglobin 11.1, hematocrit 32.8, platelet count 250,000. Coags within normal limits. ABG pH 7.46, pCO2 40, pO2 83, bicarb 28.2. This was on 2L nasal cannula. Chemistry panel within normal limits other than a glucose of 105. ASSESSMENT AND PLAN: 1. Left-sided parapneumonic effusion with or without infiltrate. Will consult Dr. Chsae. He likely will need thoracentesis for drainage as it is fairly large. I do not believe that the patient has a pneumonia. He does not have any signs or symptoms such as fever, chills, or white blood cell count, however, I cannot exclude it. He has been treated with Levaquin and doxycycline so atypicals will have been treated. Will give the patient vancomycin and Maxipime x1 dose now. Defer to primary team to continue antibiotics as well as Dr. Chase if deemed necessary. 2. Questionable pneumonia. See above. Will be treated as health care acquired, covering for MRSA and pseudomonas. 3. Hypertension. Continue home medications. 4. Hyperlipidemia. Aware. 5. Hypothyroidism. Continue home medications. 6. Further recommendations based on clinical course. Dictated by KINDRA Whiteside for Ofe Berg MD cc: KINDRA Whiteside MD Joel A. Powell, MD Independent exam performed by me at bedside. Discussed plan of care with VP DIRECTOR OF CREATIVE STRATEGY. A diagnostic/therapeutic thoracentesis is definitely indicated in this case to rule out complicated parapneumonic effusion. MTDD
[2019-01-25] MEDS: DUONEB (A & A) INH SCH ×5 (03:16→22:21)
[2019-01-25] MEDS: SYNTHROID PO SCH (06:01)
[2019-01-25 07:03] LABS: HEMATOCRIT 33.8 % (42.0-52.0); HEMOGLOBIN 11.5 g/dL (14.0-18.0); IMM GRAN# 0.02 X1000 (0.0-0.04); IMM GRAN% 0.3 % (0.0-0.5); LYMPH# 0.68 X1000 (1.2-3.4); LYMPH% 9.6 % (20.5-51.1); MCH 27.6 PG (27-31); MCV 81.3 FL (81-99); MONO# 0.18 X1000 (0.11-0.59); MONO% 2.5 % (1.7-9.3); MPV 10.2 FL (7.4-10.4); NEUT# 6.22 X1000 (1.4-6.5); NEUT% 87.6 % (42.2-75.2); PLT 274 X1000 (130-400); RBC 4.16 XMIL (4.7-6.1); RDW 14.5 % (11.5-14.5)
[2019-01-25 07:11] LABS: POTASSIUM 4.4 mmol/L (3.5-5.1); SODIUM 143 mmol/L (136-145)
[2019-01-25 07:12] LABS: AGAP 13; BUN 15 mg/dL (8-22); CALCIUM 9.3 mg/dL (8.8-10.2); CHLORIDE 105 mmol/L (98-107); COSMO 290; ESTIMATED GFR > 60; GLUCOSE 170 mg/dL (70-104); TCO2 25 mmol/L (25-35)
[2019-01-25 08:31] LABS: LYMPHS 6 % (21-51); SEGS 94 % (42-75)
[2019-01-25] MEDS: NORVASC PO SCH (09:34)
[2019-01-25] MEDS: NEURONTIN PO SCH ×3 (09:34→22:01)
--- NOTE | 2019-01-25 09:42 | PROGRESS NOTE ---
DATE: 01/25/2019 SUBJECTIVE: This patient is lying comfortably in bed. He is complaining of some chest discomfort on the left side. He does have left pleural effusion. I will continue with antibiotics at this point, but I will wait for the final recommendations of pulmonary department. I have placed the consult. He is not in acute distress. Likely this patient will need to get a thoracentesis. He was recently discharged for pneumonia. OBJECTIVE: Vital Signs: Temperature 97.8 degrees, pulse 66, respiratory rate 20, blood pressure 130/83, oxygen saturation 95 on 2 L of nasal cannula. HEENT: Head normocephalic. No trauma. PERRLA. Neck: Supple. No JVD. No masses. Central trachea. Chest: Decreased breath sounds on the left side. No wheezing. No rales. Abdomen: Soft, nontender, nondistended. No hepatosplenomegaly. Extremities: No edema, no clubbing, no cyanosis. Neurological: The patient is alert and oriented x3. No focal deficits. LABORATORY: WBC 7.1, hemoglobin 11.5, hematocrit 33.8, platelet 274,000. Sodium 143, potassium 4.4, chloride 105, bicarbonate 25, BUN 15, creatinine 1, glucose 170, calcium 9.3. ASSESSMENT AND PLAN: 1. Large left-sided pleural effusion with possible pneumonia. I will continue with antibiotics. I will wait for the final recommendation by pulmonary department. Likely this patient will need to have a thoracentesis done. He was recently discharged for pneumonia. This could be a parapneumonic effusion as well. 2. Possible pneumonia as above. 3. Hypertension. Continue with home medication. 4. Hyperlipidemia, aware. 5. Hypothyroidism. Continue with levothyroxine. cc: Luis Rowe MD
[2019-01-25] MEDS: MAXIPIME 1 GM in NS 50 ML IV SCH ×2 (09:59→22:01)
--- NOTE | 2019-01-25 15:43 | Diag Imaging Result Doc PS360 ---
EXAM: CHEST-2 VIEWS 01/25/2019 HISTORY: POST LEFT THORA TECHNIQUE: Inspiratory expiratory chest COMMENT: There is no evidence of pneumothorax. The left pleural fluid collection has diminished since the previous study of 01/24/2019. IMPRESSION: No evidence of pneumothorax. Improved left pleural fluid collection. Electronically signed by Derek Boggs 01/25/2019 3:40 PM
[2019-01-25] MEDS ORDERED: MORPHINE IV ONE (18:15)
--- NOTE | 2019-01-25 18:16 | CONSULTATION ---
DATE OF CONSULTATION: 01/25/2019 REQUESTING PROVIDER: Dr. Luis Baldwin REASON FOR CONSULTATION: Left pleural effusion, pneumonia. HISTORY OF PRESENT ILLNESS: This is a 63-year-old male with a medical history of hypertension, hypothyroidism, hyperlipidemia, and gout. His last admission to our facility was from 12/30/2018 to 01/02/2019 with asthma exacerbation, left pleural effusion, bilateral lower extremity erythema and abdominal wall hematoma. He also was treated with pneumonia by [facility] on 12/28/2018. He presented to the ER yesterday afternoon with worsening shortness of breath, nonproductive cough and left-sided sharp pleuritic chest discomfort. Initial workup in the ER revealed a left-sided parapneumonic effusion and questionable pneumonia. He has been admitted to the medical floor for further evaluation and management. The patient currently is lying in bed with no acute distress noted. He is on nasal cannula at 2 L. He reported shortness of breath with dry cough starting about 2 weeks ago after he completed the antibiotics from [facility] which are similar to what he had before antibiotic therapy. Later he developed left upper quadrant discomfort with position change and cough. He reports intermittent sharp left lower chest pain with deep breathing and cough since yesterday. He reports no fever, chill, bowel habit change, urination discomfort, nausea, palpitation or pedal edema. He reports he lost 11 pounds since last admission, but he doubts the accuracy. He states his appetite is good during this time. PAST MEDICAL HISTORY: 1. Recent pneumonia diagnosed on 12/28/2018 from [facility] and had been treated with antibiotic, but the patient does not remember the name of the antibiotic. 2. Hypertension. 3. Hypothyroidism. 4. Hyperlipidemia. 5. Gout. PAST SURGICAL HISTORY: None. FAMILY HISTORY: Positive for diabetes. SOCIAL HISTORY: The patient lives alone. He is not and he has no child. He has 2 supportive sisters who takes care of him. He has no history of cigarette use, but he does occasionally puff a cigar. He drinks beer occasionally, about once every 2 to 3 weeks. He has no illicit drug use. ALLERGIES: No known drug allergies. REVIEW OF SYSTEMS: A 10-point review of systems was conducted and the pertinent is listed within the HPI, otherwise noncontributory. PHYSICAL EXAMINATION: Vital Signs: Temperature 97.8 degrees, blood pressure 130/83, pulse 66, respiratory rate 20, oxygen saturation 95% on nasal cannula at 2 L. General: Appears younger than stated age, very well developed, well nourished, lying in bed in no acute distress, pleasant and cooperative. HEENT: Atraumatic, normocephalic. Trachea midline. Mucosa pink and moist. Respiratory: Even and unlabored. Symmetrical excursion. Auscultation revealed diminished breathing sounds with left side greater than right side and some mild early inspiratory crackles on the left lower lobe posteriorly. Cardiovascular: Regular rate and rhythm. Gastrointestinal: Left upper quadrant tenderness without palpitation. Soft, distended. Normoactive bowel sounds in all 4 quadrants. Extremities: No pedal edema. No cyanosis. No clubbing. Dorsalis pedis 2+ bilaterally. Neurologic: Alert and oriented x3. Speech fluent. Follows commands. LABORATORY DATA: White blood cells 7.1, hemoglobin 11.5, hematocrit 33.8, platelet 274,000. Sodium 143, potassium 4.4, chloride 105, carbon dioxide 25, BUN 15, creatinine 1, glucose 170. IMAGING DATA: CT angiogram pulmonary arterials on 01/24/2019 revealed a very large partially loculated pleural effusion on the left that may simply be tracking into the soft tissues at the left lower lateral chest wall, stable nodularity at the medial right lower lobe, but no evidence of pulmonary embolism. ASSESSMENT: This is a 63-year-old male with a medical history of recent pneumonia, hypertension, hypothyroidism, hyperlipidemia, and gout. He has been admitted since yesterday with a very large partially loculated pleural effusion on the left and questionable pneumonia. 1. Shortness of breath. 2. Very large partially loculated pleural effusion on the left with marked left lower lobe atelectasis and only slightly less severe left upper lobe atelectasis. 3. Pleural based nodules in the medial right lower lobe, which is stable compared to the CT on 01/02/2019. 4. Questionable pneumonia. 5. Ruled out pulmonary embolism. PLAN: 1. Continue supplemental oxygen as needed. 2. We will schedule ultrasound-guided thoracentesis for diagnostic and therapeutic purposes. 3. Continue antibiotic and bronchodilators. 4. Follow up with pleural fluid profile, ABG, CBC, blood culture, sputum culture, and chest x- ray. 5. Further recommendations pending hospital course. Thank you for the courtesy of this consultation. Dictated by KINDRA Joyce for Mary Lane MD cc: KINDRA Joyce MD [facility]
[2019-01-25] MEDS ORDERED: MORPHINE ONE (18:28)
[2019-01-25 18:36] LABS: SPECIMEN PLEURAL FLUID
[2019-01-25 18:42] LABS: BLOOD TYPE ARTERIAL; SAMPLE BLOOD
[2019-01-25 18:43] LABS: ALLEN TEST YES; BE -0.6 mmoll (-3.0-3.0); HCO3-(ACT) 24.4 mmoll (20.0-26.0); METHB 1.1 % (0.0-1.5); MODALITY CANNULA; O2(CT) 15.8 mL/dL (15.0-23.0); PCO2(98.6) 33 mmHg (35-45); PO2(98.6) 68 mmHg (60-100); SAO2 97.7 % (95.0-100.0); THB 11.8 g/dL (11.5-17.4); pH(98.6) 7.45 (7.35-7.45)
[2019-01-25 19:07] LABS: AMYLASE BODY FLUID 15 U/L; GLUCOSE BODY FLUID 157 mg/dL
[2019-01-25 19:13] LABS: BODY FLUID SOURCE PLEURAL FLUID; WBC BF 967 /cumm
[2019-01-25 19:14] LABS: LDH BODY FLUID 769 U/L
--- NOTE | 2019-01-25 19:20 | PROGRESS NOTE ---
DATE: 01/25/2019 This is a CAT call due to chest pain. The patient was short of breath and diaphoretic. This was around 1700 maybe 1600. We did EKG which was nonspecific. Chest x-ray I did not feel like showed an acute pneumothorax and the fluid did not seem to reaccumulate, in fact if anything, it looked better, but I did not see a pneumothorax, but we will wait for final read from Radiology. If anything, there is little bit better expansion. The patient also describes that the chest pain really starts in his left upper quadrant, radiates upwards and it has been there this whole admission. It was not, per se, a new chest pain, although it was increased. In any case, we did ABG, which was unremarkable. Cardiac enzymes are pending. We will transfer him to the unit for further monitoring. If he has further decompensation, I would strongly repeat CT with contrast just to make sure he has no hemo thorax, but at this point, diagnosis is unclear. He does look a bit constipated based on his plain films. We will start MiraLAX and we will repeat chest x-ray and ABG. I did discuss the event with his primary physician, Dr. Baldwin. cc: Silvestre Soria MD
--- NOTE | 2019-01-25 19:22 | Diag Imaging Result Doc PS360 ---
CHEST-PORTABLE - 01/25/2019 6:19 PM INDICATION: dyspnea, s/p thoracentesis COMPARISON: 3:37 PM FINDINGS: There is no change from prior. IMPRESSION: No change from prior. Electronically signed by Ashish Hutson 01/25/2019 7:20 PM
[2019-01-25 19:35] LABS: MONOS 54 %; POLYS 46 %
--- NOTE | 2019-01-25 21:09 | Diag Imaging Result Doc PS360 ---
EXAM: US THORACENTESIS W/IMAGE GUIDE 01/25/2019 HISTORY: Diagnostic and therapeutic TECHNIQUE: Ultrasound-guided thoracentesis COMMENT: The risks and benefits of procedure were discussed with the patient including the possibility of bleeding, infection, reaction to lidocaine, and pneumothorax. He agreed to the procedure. Following sterile preparation of the skin posteriorly over the left chest and administration of 1% lidocaine to the skin and deeper soft tissues, the thoracentesis catheter was placed and subsequently 800 mL of grossly bloody fluid was drained by syringe pump technique. The drainage was discontinued at the point the patient started being uncomfortable. There are no immediate complications. IMPRESSION: Successful ultrasound-guided left thoracentesis. Electronically signed by Derek Boggs 01/25/2019 9:06 PM
[2019-01-25 21:14] LABS: BASO# 0.01 X1000 (0.0-0.2); BASO% 0.1 % (0.0-0.8); EOS# 0.01 X1000 (0.0-0.7); EOS% 0.1 % (0.0-10.0); HEMATOCRIT 33.3 % (42.0-52.0); HEMOGLOBIN 11.2 g/dL (14.0-18.0); IMM GRAN# 0.07 X1000 (0.0-0.04); IMM GRAN% 0.7 % (0.0-0.5); LYMPH# 0.85 X1000 (1.2-3.4); LYMPH% 8.8 % (20.5-51.1); MCH 27.3 PG (27-31); MCHC 33.6 g/dL (33-37); MONO# 0.77 X1000 (0.11-0.59); NEUT# 7.96 X1000 (1.4-6.5); NEUT% 82.3 % (42.2-75.2); PLT 284 X1000 (130-400); RBC 4.11 XMIL (4.7-6.1); RDW 14.5 % (11.5-14.5); WBC 9.67 X1000 (4.8-10.8)
[2019-01-26] MEDS: DUONEB (A & A) INH SCH ×4 (03:28→21:41)
[2019-01-26 04:51] LABS: ALLEN TEST YES; BE 0.6 mmoll (-3.0-3.0); BLOOD TYPE ARTERIAL; HCO3-(ACT) 25.3 mmoll (20.0-26.0); METHB 0.9 % (0.0-1.5); O2(CT) 17.4 mL/dL (15.0-23.0); O2HB 94.8 % (95.0-99.0); PCO2(98.6) 47 mmHg (35-45); PO2(98.6) 73 mmHg (60-100); SAMPLE BLOOD; SAO2 97.2 % (95.0-100.0); pH(98.6) 7.36 (7.35-7.45)
[2019-01-26 04:52] LABS: MODALITY CANNULA
[2019-01-26] MEDS: SYNTHROID PO SCH (06:31)
--- NOTE | 2019-01-26 06:46 | Diag Imaging Result Doc PS360 ---
CHEST-PORTABLE - 01/26/2019 INDICATION: dyspnea COMPARISON: 01/25/2019 FINDINGS: Stable consolidation/effusion at the lateral left lung base. No new abnormalities. IMPRESSION: No change from prior. Electronically signed by Ashish Hutson 01/26/2019 6:43 AM
--- NOTE | 2019-01-26 07:56 | PROGRESS NOTE ---
DATE: 01/26/2019 SUBJECTIVE: This patient is resting in bed. He is complaining of left upper quadrant and left lower thoracic area pain. Sometimes he gets short of breath and as per the patient, it is really difficult to breathe when the pain is moderate to severe. His abdomen seems to be distended but his bowel sounds are present and he has been passing gas and he had a bowel movement yesterday, I recommend more movement with this patient. I will ask Physical Therapy to walk with him. Yesterday he had a thoracentesis done and 800 mL of bloody fluid has been removed. OBJECTIVE: Vital Signs: Temperature 98.3 degrees, pulse 62, respiratory rate 16, blood pressure 114/72, oxygen saturation 97% on 3 L on nasal cannula. HEENT: Head normocephalic, no trauma. PERRLA. Neck: Supple. No JVD. No masses. Central trachea. Chest: Decreased breath sounds at the level of the left lower lobe, some crepitus as well. Abdomen: Soft, mild to moderately distended. There is no generalized tenderness to palpation, only at the level of the left upper quadrant. No signs of peritoneal irritation. Positive bowel sounds. Extremities: No edema, no clubbing, no cyanosis. Neurological: The patient is alert and oriented x3. No focal deficits. LABORATORY DATA: A pH of 7.36, pCO2 47, PO2 73. Lactate level 2.5. Pending CBC, BMP. ASSESSMENT AND PLAN: 1. Large left-sided pleural effusion with possible pneumonia, status post thoracentesis where 800 mL of fluid has been removed, mostly bloody. Pulmonary Department on board. I will follow their recommendations. Yesterday this patient had an episode of dyspnea and he was transferred to the ICU. He seems to be better, but he is still complaining of pain. He has been placed on morphine as needed. We will continue with antibiotics. 2. Possible pneumonia, as above. 3. Hypertension. Continue home medication. 4. Hyperlipidemia. Aware. 5. Hypothyroidism. Continue levothyroxine. 6. History of gout. Aware. This patient seems to be stable. We will try to control his pain with morphine for now. I have requested Physical Therapy to start walking with him because his abdomen is a little bit distended, he is passing gas and he had a bowel movement yesterday. Pending laboratory, probably this patient can be transferred to the PVC unit. cc: Luis Rowe MD
[2019-01-26 08:07] LABS: BASO# 0.03 X1000 (0.0-0.2); BASO% 0.5 % (0.0-0.8); EOS# 0.08 X1000 (0.0-0.7); EOS% 1.2 % (0.0-10.0); HEMATOCRIT 32.5 % (42.0-52.0); HEMOGLOBIN 10.6 g/dL (14.0-18.0); IMM GRAN# 0.04 X1000 (0.0-0.04); IMM GRAN% 0.6 % (0.0-0.5); LYMPH# 1.12 X1000 (1.2-3.4); LYMPH% 17.1 % (20.5-51.1); MCHC 32.6 g/dL (33-37); MCV 82.7 FL (81-99); MONO# 0.58 X1000 (0.11-0.59); MONO% 8.8 % (1.7-9.3); MPV 10.1 FL (7.4-10.4); NEUT# 4.71 X1000 (1.4-6.5); NEUT% 71.8 % (42.2-75.2); PLT 260 X1000 (130-400); RBC 3.93 XMIL (4.7-6.1); RDW 14.6 % (11.5-14.5); WBC 6.56 X1000 (4.8-10.8)
[2019-01-26 08:18] LABS: AGAP 9; BUN 12 mg/dL (8-22); CALCIUM 8.8 mg/dL (8.8-10.2); CHLORIDE 102 mmol/L (98-107); COSMO 280; CREATININE 0.9 mg/dL (0.7-1.2); ESTIMATED GFR > 60; GLUCOSE 139 mg/dL (70-104); POTASSIUM 3.6 mmol/L (3.5-5.1); SODIUM 139 mmol/L (136-145); TCO2 28 mmol/L (25-35)
[2019-01-26 08:23] LABS: HEMOGLOBIN A1C 6.4 % (4.8-6.0)
--- NOTE | 2019-01-26 09:07 | EKG Report ---
Test Performed on : 01/26/2019 06:30:13 AM Test Reason : CHEST PAIN Blood Pressure : / mmHG Vent. Rate : 065 BPM Atrial Rate : 065 BPM P-R Int : 146 ms QRS Dur : 106 ms QT Int : 400 ms P-R-T Axes : 040 022 045 degrees QTc Int : 416 ms Normal sinus rhythm. Normal ECG When compared with ECG of 25-JAN-2019 18:13, (Unconfirmed) Vent. rate has decreased BY 36 BPM Nonspecific T wave abnormality, improved in Inferior leads Nonspecific T wave abnormality no longer evident in Lateral leads Confirmed by Wilson MCKENNA, Efrem Srinivasan ([id number]) on 01/26/2019 5:18:39 PM
--- NOTE | 2019-01-26 09:07 | EKG Report ---
Test Performed on : 01/25/2019 6:13:07 PM Test Reason : TACHYCARDIA Blood Pressure : / mmHG Vent. Rate : 101 BPM Atrial Rate : 101 BPM P-R Int : 128 ms QRS Dur : 098 ms QT Int : 302 ms P-R-T Axes : 059 021 152 degrees QTc Int : 391 ms Sinus tachycardia. Nonspecific ST and T wave abnormality (inferior-lateral T wave flattening) Abnormal ECG When compared with ECG of 24-JAN-2019 18:52, (Unconfirmed) Nonspecific T wave abnormality now evident in Lateral leads Confirmed by Wilson MCKENNA, Efrem Srinivasan ([id number]) on 01/26/2019 5:11:44 PM
[2019-01-26] MEDS: NORVASC PO SCH (09:20)
[2019-01-26] MEDS: NEURONTIN PO SCH ×3 (09:20→21:49)
[2019-01-26] MEDS: MAXIPIME 1 GM in NS 50 ML IV SCH ×2 (09:20→21:49)
[2019-01-26] MEDS: MIRALAX PO SCH (09:21)
[2019-01-26] MEDS: MORPHINE IV PRN (15:06)
[2019-01-27] MEDS: DUONEB (A & A) INH SCH ×4 (04:05→22:10)
[2019-01-27 04:47] LABS: ALLEN TEST YES; BE 3.3 mmoll (-3.0-3.0); BLOOD TYPE ARTERIAL; HCO3-(ACT) 27.4 mmoll (20.0-26.0); METHB 0.9 % (0.0-1.5); O2(CT) 14.7 mL/dL (15.0-23.0); PCO2(98.6) 45 mmHg (35-45); PO2(98.6) 63 mmHg (60-100); SAMPLE BLOOD; SAO2 96.5 % (95.0-100.0); THB 11.1 g/dL (11.5-17.4); pH(98.6) 7.41 (7.35-7.45)
[2019-01-27 04:56] LABS: MODALITY CANNULA
[2019-01-27 05:47] LABS: BASO# 0.03 X1000 (0.0-0.2); BASO% 0.5 % (0.0-0.8); EOS# 0.24 X1000 (0.0-0.7); EOS% 4.4 % (0.0-10.0); HEMATOCRIT 32.1 % (42.0-52.0); HEMOGLOBIN 10.6 g/dL (14.0-18.0); IMM GRAN# 0.05 X1000 (0.0-0.04); IMM GRAN% 0.9 % (0.0-0.5); LYMPH# 1.45 X1000 (1.2-3.4); LYMPH% 26.4 % (20.5-51.1); MCH 27.1 PG (27-31); MCV 82.1 FL (81-99); MONO# 0.52 X1000 (0.11-0.59); MONO% 9.5 % (1.7-9.3); NEUT# 3.21 X1000 (1.4-6.5); NEUT% 58.3 % (42.2-75.2); PLT 259 X1000 (130-400); RBC 3.91 XMIL (4.7-6.1); RDW 14.9 % (11.5-14.5)
[2019-01-27 06:01] LABS: AGAP 11; BUN 14 mg/dL (8-22); CALCIUM 8.6 mg/dL (8.8-10.2); CHLORIDE 102 mmol/L (98-107); COSMO 278; CREATININE 0.9 mg/dL (0.7-1.2); ESTIMATED GFR > 60; GLUCOSE 129 mg/dL (70-104); POTASSIUM 3.5 mmol/L (3.5-5.1); SODIUM 138 mmol/L (136-145); TCO2 25 mmol/L (25-35)
[2019-01-27] MEDS: SYNTHROID PO SCH (06:19)
--- NOTE | 2019-01-27 06:58 | PROVIDER PROGRESS NOTE ---
Progress Note Additional Pulmonary note: Early next week will repeat chest CT. This is to determine if he needs further aggressive intervention, for example decortication, or continue antibiotics only for total 3-4 weeks.
[2019-01-27] MEDS: MAXIPIME 1 GM in NS 50 ML IV SCH ×2 (09:12→23:23)
[2019-01-27] MEDS: NEURONTIN PO SCH ×3 (09:12→21:48)
[2019-01-27] MEDS: NORVASC PO SCH (09:12)
[2019-01-27] MEDS: MIRALAX PO SCH (09:12)
--- NOTE | 2019-01-27 09:54 | PROGRESS NOTE ---
DATE: 01/27/2019 SUBJECTIVE: This patient is resting in bed. He is still complaining of left upper quadrant and left lower thoracic area pain, but I believe he is getting better. He will be transferred to the medical floor. Vital signs are stable. He has been mostly in the 100s and high 90s. Laboratory has been stable as well. OBJECTIVE: Vital Signs: Temperature 97.6 degrees, pulse 56, respiratory rate 16, blood pressure 99/66, and oxygen saturation 96% on 2 L of nasal cannula. HEENT: Head normocephalic. No trauma. PERRLA. Neck: Supple. No JVD. No masses. Central trachea. Chest: Decreased breath sounds at the level of the left lower lobe with some crepitus as well. Abdomen: Soft. Mild tenderness to palpation at the level of the left upper quadrant, mild distention. Positive bowel sounds. No signs of peritoneal irritation. Extremities: No edema. No clubbing. No cyanosis. Neurological: The patient is alert and oriented x3. No focal deficits. LABORATORY: WBC 5.5, hemoglobin 10.6, hematocrit 32.1, and platelets 259,000. Sodium 138, potassium 3.5, chloride 102, bicarbonate 25, BUN 14, creatinine 0.9 glucose 129, and calcium 8.6. ASSESSMENT AND PLAN: 1. Large left-sided pleural effusion with possible pneumonia, status post thoracentesis where 800 mL of fluid has been removed, mostly bloody. Pulmonary Department on board. I will follow their recommendations. I will continue with antibiotics, breathing treatment, and oxygen supplementation. 2. Possible pneumonia, as above. 3. Hypertension. Continue with home medication. 4. Hyperlipidemia. Aware. 5. Pre diabetes. Hemoglobin A1c 6.4. 6. Hypothyroidism. Continue with levothyroxine. 7. Gout. Aware. 8. He seems to be getting better. I will get a new x-ray in the morning. I will monitor this patient closely. I will follow the recommendations of Pulmonary Department. cc: Luis Rowe MD
[2019-01-27] MEDS ORDERED: TESSALON PO PRN (14:33)
[2019-01-27] MEDS: MORPHINE IV PRN ×2 (14:41→23:23)
[2019-01-28] MEDS: DUONEB (A & A) INH SCH ×4 (03:39→21:07)
[2019-01-28] MEDS: SYNTHROID PO SCH (06:28)
[2019-01-28 07:54] LABS: BASO# 0.04 X1000 (0.0-0.2); BASO% 0.7 % (0.0-0.8); EOS# 0.28 X1000 (0.0-0.7); EOS% 4.9 % (0.0-10.0); HEMATOCRIT 33.4 % (42.0-52.0); HEMOGLOBIN 10.9 g/dL (14.0-18.0); IMM GRAN# 0.15 X1000 (0.0-0.04); IMM GRAN% 2.6 % (0.0-0.5); LYMPH# 1.26 X1000 (1.2-3.4); LYMPH% 22.1 % (20.5-51.1); MCHC 32.6 g/dL (33-37); MCV 82.9 FL (81-99); MONO# 0.42 X1000 (0.11-0.59); MONO% 7.4 % (1.7-9.3); MPV 9.9 FL (7.4-10.4); NEUT# 3.56 X1000 (1.4-6.5); NEUT% 62.3 % (42.2-75.2); PLT 311 X1000 (130-400); RBC 4.03 XMIL (4.7-6.1); WBC 5.71 X1000 (4.8-10.8)
[2019-01-28 08:09] LABS: AGAP 11; BUN 11 mg/dL (8-22); CALCIUM 9.3 mg/dL (8.8-10.2); CHLORIDE 101 mmol/L (98-107); COSMO 279; CREATININE 0.9 mg/dL (0.7-1.2); ESTIMATED GFR > 60; GLUCOSE 142 mg/dL (70-104); POTASSIUM 3.8 mmol/L (3.5-5.1); SODIUM 139 mmol/L (136-145); TCO2 27 mmol/L (25-35)
--- NOTE | 2019-01-28 08:21 | Diag Imaging Result Doc PS360 ---
EXAM: CHEST-2 VIEWS INDICATION: hypoxia TECHNIQUE: 2 views COMPARISON: 01/26/2019 FINDINGS: Inspiration is better than the previous study. There is stable mild atelectasis in the right middle lobe. The left-sided effusion with adjacent atelectasis and/or infiltrate is essentially stable. It is moderate in size. No new consolidation is identified. Cardiac silhouette is stable. IMPRESSION: Better inspiration but essentially stable chest, otherwise. Electronically signed by Aris Khalil 01/28/2019 8:19 AM
[2019-01-28] MEDS: MIRALAX PO SCH ×2 (09:34→09:36)
[2019-01-28] MEDS: MAXIPIME 1 GM in NS 50 ML IV SCH ×2 (09:34→21:01)
[2019-01-28] MEDS: NORVASC PO SCH (09:34)
[2019-01-28] MEDS: NEURONTIN PO SCH ×3 (09:34→21:01)
[2019-01-28] MEDS: MORPHINE IV PRN ×2 (09:58→16:48)
--- NOTE | 2019-01-28 15:46 | PROGRESS NOTE ---
DATE: 01/28/2019 SUBJECTIVE: The patient is resting comfortably in bed. He still complains of left upper quadrant and left lower thoracic area pain, especially when he takes a deep breath or coughs. X-ray today shows better inspiration but essentially stable chest. He has left-sided effusion, moderate size, but no new consolidation. OBJECTIVE: Vital Signs: Temperature 98 degrees, pulse 72, respiratory rate 19, blood pressure 121/65, oxygen saturation 97% on 2 liters of nasal cannula oxygen. HEENT: Head normocephalic, atraumatic. No trauma. PERRLA. Neck: Supple. No JVD. No masses. Central trachea. Chest: Decreased breath sounds at the level of the left lower lobe with some crepitans as well. Abdomen: Soft. tenderness at the level of the left upper quadrant. Positive bowel sounds. No signs of peritoneal irritation. Extremities: No clubbing, cyanosis or edema. Neurological: The patient is alert. He is oriented x 3. No focal deficits. Laboratory data: WBC 5.7, hemoglobin 10.9, hematocrit 33.4, platelets 311. Sodium 139, potassium 3.8, chloride 101, bicarbonate 27, BUN 11, creatinine 0.9, glucose 142, calcium 9.3. ASSESSMENT AND PLAN: 1. Large left-sided pleural effusion with possible pneumonia status post thoracentesis where 100 mL of fluid has been removed, mostly bloody. Pulmonary Department on board. I will follow their recommendations. I will continue in the meantime with antibiotics, breathing treatments, and oxygen supplementation as needed. 2. Possible pneumonia. As above. 3. Hypertension. Continue home medications. 4. Hyperlipidemia. Aware. 5. Prediabetes. Hemoglobin A1C is 6.4. 6. Hypothyroidism. Continue with levothyroxine. 7. Gout. Aware. 8. He seems to be getter better symptomatically. X-rays still showing left- sided effusion, moderate size. He is still in pain. 9. I will wait for further instructions from Pulmonary Department. cc: Luis Rowe MD MTDD
[2019-01-28] MEDS ORDERED: COLCRYS PO ONE (17:10)
[2019-01-28] MEDS: NORCO-7.5 PO PRN (21:01)
[2019-01-29] MEDS: DUONEB (A & A) INH SCH ×4 (03:27→21:14)
--- NOTE | 2019-01-29 05:07 | PULMONOLOGY PROGRESS NOTE ---
DATE: 01/28/2019 SUBJECTIVE: The patient is awake, alert, and conversant. He has mild dyspnea with exertion. He is without other complaints. OBJECTIVE: Vital signs: Patient is afebrile for the last 24 hours. Blood pressure 115/71, heart rate 70, respiratory rate 18, oxygen saturation 95% on 2 L per nasal cannula. HEENT: Pupils are equal and reactive. Oropharynx is clear. Neck: Supple. Chest: Reveals diminished breath sounds left base. Cardiac: S1, S2. Abdomen: Soft. Extremities: Without edema. LABORATORIES: Chest x-ray reveals continued effusion, left lung base. IMPRESSION: 1. A 63-year-old with bloody/exudate of pleural effusion in the left hemithorax. 2. Pulmonary nodule infiltrate right mid paraspinal region. 3. Mild hypoxemic respiratory failure. PLAN: 1. Continue current antibiotic regimen. 2. Send connective tissue cascade and QuantiFERON gold TB test to rule out connective tissue and TB-associated pleural effusions. 3. Anticipate followup CT scan. If no improvement, would recommend thoracoscopy. cc: Parish Chase MD
[2019-01-29] MEDS: NORCO-7.5 PO PRN ×2 (06:03→16:36)
[2019-01-29] MEDS: SYNTHROID PO SCH (06:03)
[2019-01-29] MEDS: COLCRYS PO SCH (10:57)
[2019-01-29] MEDS: MIRALAX PO SCH (10:57)
[2019-01-29] MEDS: NORVASC PO SCH (10:57)
[2019-01-29] MEDS: MAXIPIME 1 GM in NS 50 ML IV SCH ×2 (10:57→21:35)
[2019-01-29] MEDS: NEURONTIN PO SCH ×3 (10:57→21:35)
--- NOTE | 2019-01-29 16:03 | PROGRESS NOTE ---
DATE: 01/29/2019 SUBJECTIVE: The patient is resting comfortably in bed. He is complaining of left upper quadrant abdominal pain and left lower thoracic area pain especially when he coughs or takes a deep breath. Pulmonary Department on board. He has left-sided pleural effusion with possible pneumonia. OBJECTIVE: Vital Signs: Temperature 98.4 degrees, pulse 73, respiratory rate 18, blood pressure 133/64, oxygen saturation 98 on 2 L of nasal cannula. HEENT: Head normocephalic, no trauma. PERRLA. Neck: Supple. No JVD. No masses. Central trachea. Chest: Decreased breath sounds on the left side with crepitus and crackles. Abdomen: Soft, some tenderness to palpation at the level of the left upper quadrant, positive bowel sounds. No signs of peritoneal irritation. Extremity: No edema, no clubbing, no cyanosis. Neurological: The patient is alert, he is oriented x3. No focal deficits. LABORATORY: WBC 5.7, hemoglobin 10.9, hematocrit 33.4, platelets 311,000. Sodium 139, potassium 3.8, chloride 101, bicarbonate 27, BUN 11, creatinine 0.9, glucose 142, calcium 9.3. ASSESSMENT AND PLAN: 1. Large left-sided pleural effusion with possible pneumonia status post thoracentesis where 800 mL of fluid has been removed, mostly bloody. Pulmonary Department on board, I will follow their recommendations. Probably they will get a new CT scan at the beginning of the week and probably they will need to remove more fluids and/or do a thoracoscopy. 2. Possible pneumonia, continue with antibiotics. 3. Hypertension. Continue with home medications. 4. Hyperlipidemia aware. 5. Prediabetes with a hemoglobin A1c of 6.4. 6. Hypothyroidism. Continue levothyroxine. 7. Gout aware. cc: Luis Rowe MD
--- NOTE | 2019-01-29 22:15 | PULMONOLOGY PROGRESS NOTE ---
DATE: 01/29/2019 SUBJECTIVE: The patient is awake, alert, and conversant. He reports he feels about the same. He denies cough. He denies sputum production. OBJECTIVE: Vital Signs: The patient has been afebrile for the last 24 hours. BP 139/73, heart rate 72, respiratory rate 17, oxygen saturation 97%. HEENT: Pupils are equal and reactive. Oropharynx appears clear. Neck: Is supple. Chest: Reveals decreased breath sounds left base. Cardiac: S1-S2. Abdomen: Soft. Extremities: Without edema. LABORATORIES: There are no new chemistries or CBC or x-rays today. IMPRESSION: A 63-year-old with 1. Bloody/exudative pleural effusion. 2. Pulmonary nodule in the right mid paraspinal region. 3. Hypoxemic respiratory failure. PLAN: 1. Continue current antibiotic regimen. 2. Await results of QuantiFERON Gold and connective tissue cascade. 3. Follow-up CT scan on Thursday. Consider thoracoscopy depending on results of that scan. cc: Parish Chase MD
[2019-01-30] MEDS: DUONEB (A & A) INH SCH ×4 (03:41→21:15)
[2019-01-30] MEDS: NORCO-7.5 PO PRN ×3 (04:49→21:33)
[2019-01-30] MEDS: SYNTHROID PO SCH (06:02)
[2019-01-30] MEDS: MAXIPIME 1 GM in NS 50 ML IV SCH ×2 (09:54→21:34)
[2019-01-30] MEDS: COLCRYS PO SCH (09:55)
[2019-01-30] MEDS: MIRALAX PO SCH (09:55)
[2019-01-30] MEDS: NORVASC PO SCH (09:55)
[2019-01-30] MEDS: NEURONTIN PO SCH ×3 (09:55→21:33)
[2019-01-30] MEDS: TUMS PO PRN (11:00)
--- NOTE | 2019-01-30 12:29 | PROGRESS NOTE ---
DATE: 01/30/2019 SUBJECTIVE: The patient is resting comfortably in bed. He is complaining of epigastric pain/heartburn. No changes in his abdominal pain and left lower thoracic area pain, especially when he coughs or takes a deep breath. Pulmonary department on board. I have requested a chest x- ray for tomorrow as well as lab work. OBJECTIVE: Vital Signs: Temperature 98.1 degrees, pulse 77, respiratory rate 16, blood pressure 129/78, oxygen saturation 94% on 2 L of nasal cannula. HEENT: Head normocephalic. No trauma. PERRLA. Neck: Supple. No JVD. No masses. Central trachea. Chest: Decreased breath sounds on the left side with crepitus and crackles. Abdomen: Soft. Some tenderness to palpation at the level of the left upper quadrant and epigastric area. Positive bowel sounds. No signs of peritoneal irritation. Extremities: No edema. No clubbing. No cyanosis. Neurological Examination: The patient is alert. He is oriented x3. No focal deficits. Laboratory: No lab work done today. ASSESSMENT AND PLAN: 1. Large left-sided pleural effusion with possible pneumonia, status post thoracentesis where 800 mL of fluid has been removed, mostly bloody. Pulmonary department on board. I will follow their recommendations. Probably, they will get a new CT scan early this week. If there are not big changes, probably they need to do a thoracoscopy. I will wait for recommendations. 2. Possible pneumonia. Continue with antibiotics. 3. Hypertension. Continue home medication. 4. Hyperlipidemia. Aware. 5. Gastroesophageal reflux disease. I have placed this patient on proton pump inhibitors and he has requested Tums. 6. Prediabetes with a hemoglobin A1c of 6.4 and hypothyroidism. Continue levothyroxine. 7. Gout. Aware. cc: Luis Rowe MD
[2019-01-30] MEDS: PRILOSEC PO SCH ×2 (14:11→21:33)
--- NOTE | 2019-01-30 19:05 | PULMONOLOGY PROGRESS NOTE ---
DATE: 01/30/2019 SUBJECTIVE: The patient is awake and alert. He denies sputum production. He is ambulating in the hallway. OBJECTIVE: Vital Signs: Blood pressure 133/76, heart rate 75, respiratory rate 18, oxygen saturation 96% on room air. HEENT: Pupils are equal and reactive. Oropharynx appears clear. Neck: Supple. Chest: Reveals decreased breath sounds left base. He does have some faint wheeze on forced exhalation. Cardiac: S1-S2. Abdomen: Soft. Extremities: Without edema. IMPRESSION: A 63-year-old with: 1. Bloody/exudative pleural effusion. 2. Pulmonary nodule/infiltrate in the right mid paraspinal region. 3. Hypoxemic respiratory failure, now on room air. PLAN: 1. Continue current antibiotic regimen. 2. Await reports from connective tissue cascade and QuantiFERON study. 3. Follow up chest x-ray tomorrow and consider CT scan and/or thoracoscopy if he is not improving. This will be decided by Dr. Mary Lane. cc: Parish Chase MD
[2019-01-31] MEDS: DUONEB (A & A) INH SCH ×4 (03:45→21:49)
[2019-01-31] MEDS: NORCO-7.5 PO PRN ×4 (04:16→22:42)
[2019-01-31] MEDS: PRILOSEC PO SCH ×2 (06:18→20:34)
[2019-01-31] MEDS: SYNTHROID PO SCH (06:18)
[2019-01-31 07:06] LABS: BASO# 0.07 X1000 (0.0-0.2); BASO% 1.1 % (0.0-0.8); EOS# 0.34 X1000 (0.0-0.7); EOS% 5.1 % (0.0-10.0); HEMATOCRIT 35.8 % (42.0-52.0); HEMOGLOBIN 12.1 g/dL (14.0-18.0); IMM GRAN# 0.43 X1000 (0.0-0.04); IMM GRAN% 6.5 % (0.0-0.5); LYMPH# 1.23 X1000 (1.2-3.4); LYMPH% 18.6 % (20.5-51.1); MCH 27.8 PG (27-31); MCHC 33.8 g/dL (33-37); MCV 82.1 FL (81-99); MONO# 0.49 X1000 (0.11-0.59); MONO% 7.4 % (1.7-9.3); MPV 9.7 FL (7.4-10.4); NEUT# 4.07 X1000 (1.4-6.5); NEUT% 61.3 % (42.2-75.2); PLT 371 X1000 (130-400); RBC 4.36 XMIL (4.7-6.1); RDW 14.8 % (11.5-14.5); WBC 6.63 X1000 (4.8-10.8)
[2019-01-31 07:28] LABS: AGAP 12; BUN 11 mg/dL (8-22); CALCIUM 9.6 mg/dL (8.8-10.2); CHLORIDE 98 mmol/L (98-107); COSMO 281; CREATININE 0.8 mg/dL (0.7-1.2); ESTIMATED GFR > 60; GLUCOSE 173 mg/dL (70-104); SODIUM 139 mmol/L (136-145); TCO2 29 mmol/L (25-35)
--- NOTE | 2019-01-31 09:00 | Diag Imaging Result Doc PS360 ---
CHEST-2 VIEWS - 01/31/2019 INDICATION: hypoxia COMPARISON: 01/28/2019 FINDINGS: There is a stable moderate left basilar pleural effusion. No infiltrates or significant edema. Heart size is normal. IMPRESSION: Stable moderate left basilar pleural effusion. Electronically signed by Ashish Hutson 01/31/2019 8:58 AM
[2019-01-31] MEDS: MAXIPIME 1 GM in NS 50 ML IV SCH ×2 (10:33→20:34)
[2019-01-31] MEDS: MIRALAX PO SCH (10:33)
[2019-01-31] MEDS: COLCRYS PO SCH (10:34)
[2019-01-31] MEDS: NEURONTIN PO SCH ×3 (10:34→20:33)
[2019-01-31] MEDS: NORVASC PO SCH (10:34)
[2019-01-31 10:56] LABS: BANDS 6 % (0-1); EOS 2 % (1-10); LYMPHS 22 % (21-51); SEGS 70 % (42-75)
--- NOTE | 2019-01-31 14:30 | Diag Imaging Result Doc PS360 ---
EXAM: CT THORAX W/O CONTRAST INDICATION: SOB TECHNIQUE: This exam was performed using automated exposure control, adjustment of mA or kV according to patient size, and/or use of iterative reconstruction technique. COMPARISON: 01/24/2019 FINDINGS: The loculated left pleural effusion seen on the previous study is again identified. It is only slightly smaller overall as compared to the previous study. There is better aeration of the left upper lobe and left lower lobe as compared to the previous study. However, there is still significant atelectasis. As was seen on the previous study, fluid appears to be tracking along tissue planes into the soft tissues of the left lateral chest wall inferiorly. Layering in the posterior aspect of the collection there is very vague hyperattenuation indicating a small amount of layering proteinaceous debris or blood products. The nodularity at the medial right lower lobe is more prominent as compared to the previous study. For reference, there is a nodular focus on image 61 of series 3 measuring up to 1.9 x 3.6 cm axially (1.6 x 2.3 cm previously). There is no evidence of significant mediastinal lymphadenopathy. Limited views of the upper abdomen reveals stable mild hepatic steatosis. IMPRESSION: 1.Loculated left pleural effusion is somewhat smaller than the previous study but still fairly large. There is better aeration of the left lung as compared to the previous study. 2.Nonspecific nodularity at the medial aspect of the right lower lobe that has increased in prominence. Electronically signed by Aris Khalil 01/31/2019 2:28 PM
--- NOTE | 2019-01-31 18:17 | PROGRESS NOTE ---
DATE: 01/31/2019 SUBJECTIVE: Patient has no major complaints except he is still short of breath with ambulation. OBJECTIVE: Vital Signs: Blood pressure 141/77, heart rate of 67, respiratory rate of 19, temperature 98.1 degrees. 98% on room air. Cardiovascular: Regular rate and rhythm. Pulmonary: Bilateral breath sounds. Clear to auscultation. Gastrointestinal: Abdomen was soft, nontender, nondistended. Bowel sounds are positive. LABORATORY DATA: His white count 6.6, hemoglobin and hematocrit 12 and 35, platelets 371,000. Basic was normal. PROBLEM LIST: 1. Large multiloculated pleural effusion. His CT shows some improvement but there is still a decent amount of fluid at the base with compression of the lung. He also has some almost sequestration of the lung there. It is expanded though so it is not completely sequestered, but between the lungs. We will get a surgical opinion to evaluate and see if that is warranted at obviously the discretion of Dr. Chase. 2. Pneumonia. He is on antibiotics which is namely cefepime which she has been on since the 3rd which is a week and that is it. We are still waiting on QuantiFERON, which was ordered about 3 days ago. 3. Hypertension stable currently. 4. Hypothyroidism. Continue Synthroid. DISPOSITION: Pending clinical status. We will on encouraging to get up. I did see him get up and about, but he is still functionally depleted because of this issue. cc: Silvestre Soria MD
[2019-02-01] MEDS: DUONEB (A & A) INH SCH ×4 (03:33→21:54)
[2019-02-01] MEDS: NORCO-7.5 PO PRN ×3 (06:22→21:02)
[2019-02-01] MEDS: PRILOSEC PO SCH ×2 (06:22→21:03)
[2019-02-01] MEDS: SYNTHROID PO SCH (06:23)
[2019-02-01 07:22] LABS: BASO# 0.05 X1000 (0.0-0.2); BASO% 0.7 % (0.0-0.8); EOS# 0.28 X1000 (0.0-0.7); EOS% 4.2 % (0.0-10.0); HEMATOCRIT 34.7 % (42.0-52.0); HEMOGLOBIN 11.4 g/dL (14.0-18.0); LYMPH# 1.32 X1000 (1.2-3.4); LYMPH% 19.7 % (20.5-51.1); MCHC 32.9 g/dL (33-37); MCV 82.2 FL (81-99); MONO# 0.55 X1000 (0.11-0.59); MONO% 8.2 % (1.7-9.3); MPV 9.6 FL (7.4-10.4); NEUT# 4.11 X1000 (1.4-6.5); NEUT% 61.2 % (42.2-75.2); PLT 333 X1000 (130-400); RBC 4.22 XMIL (4.7-6.1); RDW 14.9 % (11.5-14.5); WBC 6.71 X1000 (4.8-10.8)
[2019-02-01 07:49] LABS: AGAP 11; BUN 12 mg/dL (8-22); CALCIUM 9.4 mg/dL (8.8-10.2); CHLORIDE 98 mmol/L (98-107); COSMO 278; CREATININE 0.9 mg/dL (0.7-1.2); ESTIMATED GFR > 60; GLUCOSE 147 mg/dL (70-104); POTASSIUM 4.3 mmol/L (3.5-5.1); SODIUM 138 mmol/L (136-145); TCO2 29 mmol/L (25-35)
--- NOTE | 2019-02-01 08:11 | GENERAL SURGERY CONSULTATION ---
DATE: 01/31/2019 REASON FOR CONSULTATION: Left pleural effusion. HISTORY OF PRESENT ILLNESS: This is a 63-year-old gentleman who was apparently diagnosed with a pneumonia approximately a month ago. He was treated but developed shortness of breath and underwent a thoracentesis with approximately a liter of fluid removed. This was on 01/25/2019. He has overall felt much better. He says he has a little shortness of breath with ambulation, but he is on room air. He is eating a very large dinner currently. He denies any smoking history. PAST MEDICAL HISTORY: He has hypertension, hypothyroidism, hyperlipidemia, gout. SURGICAL HISTORY: None including no thoracic or vascular surgery. SOCIAL HISTORY: Occasional cigar, but no significant smoking. Occasional alcohol. He has got attentive family here with him. He has also had no asbestos exposure or significant inhalational issues. REVIEW OF SYSTEMS: Ten point systems were reviewed and negative unless otherwise mentioned in HPI. FAMILY HISTORY: Negative for lung cancer. MEDICATION: Negative for anticoagulants. PHYSICAL EXAMINATION: Vitals: Currently no fevers. Pulse 85, blood pressure 144/94, O2 saturation high 90s on room air. General: He is alert, no acute distress, eating dinner. HEENT: No cervical mass. Cardiovascular: Normal rate. Pulmonary: No increased work of breathing with equal chest rise. No crepitus. Abdomen: Soft, nontender. Integument: Warm and dry. Psychiatric: Appropriate affect. Neurologic: No gross deficits. Lymphatic: I do not feel any cervical adenopathy. LABS: White count 6, hematocrit 35. Creatinine 0.8. I cannot find his cytology, but apparently this is still pending. He had cultures of the pleural fluid that showed no growth. pH was normal. He did have somewhat of an elevated white blood cell count. IMAGING: I reviewed the CT scan of the chest that shows a loculated left effusion, smaller than previous and improved aeration. There is a nodular area in the medial aspect of the right lower lobe. ASSESSMENT AND PLAN: This is a 63-year-old gentleman with left-sided effusion, possibly parapneumonic in etiology. He is, for the most part, asymptomatic. From a surgical standpoint, he would require video-assisted drainage and chest tube placement. Given his lack of symptoms and bland-appearing nature of the pleural fluid, I think it would be reasonable to observe. If he were to worsen given the loculated nature, a CT-guided drainage might be considered as well. I do think bronchoscopy would be potentially prudent given his persistent symptoms, but will follow along. No plans for emergent surgical intervention at this juncture. cc: Meg Roberson MD
[2019-02-01] MEDS: MAXIPIME 1 GM in NS 50 ML IV SCH ×2 (08:58→22:11)
[2019-02-01] MEDS: MIRALAX PO SCH (08:58)
[2019-02-01] MEDS: NEURONTIN PO SCH ×3 (08:58→21:03)
[2019-02-01] MEDS: COLCRYS PO SCH (08:58)
[2019-02-01] MEDS: NORVASC PO SCH (08:58)
[2019-02-01] MEDS ORDERED: VANCOMYCIN IV PER PHARMACY MISC SCH (13:00)
--- NOTE | 2019-02-01 14:38 | PROGRESS NOTE ---
DATE: 02/01/2019 SUBJECTIVE: The patient reports feeling still short of breath with ambulation and no complaints at rest. He denies any fever or chills. OBJECTIVE: Vital Signs: Temperature 98.0 degrees, heart rate 82, respiratory 19, blood pressure 151/78, O2 saturation 99% on room air. General: This is a chronically ill-appearing 63-year-old male lying in bed, in no acute distress. Cardiovascular: S1, S2 heard. No murmurs, gallops, or rubs. Regular rate and rhythm. Respiratory: Clear bilaterally to auscultation. No work of breathing or using accessory muscles. Minimal rhonchi in the left base. The patient is not using any accessory muscles or having work of breathing. Abdomen: Soft, nontender to palpation. Bowel sounds present. No organomegaly. Extremities: No clubbing, cyanosis, or edema. Peripheral pulses present in both legs. Neurological: Patient is alert and oriented x3. Moves all 4 extremities. LABORATORY DATA: White cell count 6.71, hemoglobin 11.4, hematocrit 34.7, platelets 333,000. Normal BMP. ASSESSMENT AND PLAN: 1. Large multiloculated left pleural effusion. The patient at presentation had large pleural effusion that was drained, and actually it drained 800 mL of serosanguineous fluid. Because the patient persists to have symptoms when he ambulates, CT of the chest showed still loculated left pleural effusion that is somewhat smaller than the previous study but is still fairly large. In that regard, we have consulted General Surgery, who thinks that no procedure is warranted at this time. Dr. Lane is onboard. We will talk to him. If this patient requires to have a CT-guided thoracentesis this patient may have, but I do not think that is a good option considering that he had a prior procedure before. We will see what Pulmonary has to say. 2. Acute community-acquired pneumonia. We will continue with antibiotics, in this case cefepime, and I added vancomycin to his current treatment. QuantiFERON has been ordered a few days ago. We will see what it shows tomorrow. 3. Hypertension. We will continue with the same management. Blood pressure is under control. 4. Hypothyroidism. We will continue with same dose of Synthroid. 5. Disposition. At this point, we will continue to monitor this patient closely. cc: Douglas Link MD
[2019-02-01] MEDS: VANCOMYCIN 2 GM in NS 500 ML IV SCH (15:42)
--- NOTE | 2019-02-01 17:29 | GENERAL SURGERY PROGRESS NOTE ---
DATE: 02/01/2019 SUBJECTIVE: Feels well. He is dressed in street clothes. He is tolerating diet. He is ambulating in the bui. He is on room air. OBJECTIVE: Vital Signs: Reviewed his vital signs. He has no fevers documented. No tachycardia. Blood pressure 151/78. Oxygen saturation 99% on room air. General: He is alert. Pulmonary: No increased work of breathing with equal chest rise on room air. Cardiovascular: Normal rate. Abdomen: Soft. Integument: Warm, dry. LABORATORY STUDIES: White count 6, hematocrit 34. Creatinine 0.9. He has had a QuantiFERON test that was negative. Blood cultures and pleural fluid cultures show no growth. No chest imaging today. ASSESSMENT AND PLAN: A 63-year-old gentleman with a parapneumonic loculated effusion. There is some residual fluid noted, although he is minimally to not symptomatic. He is on room air. I do not feel that any further thoracoscopic drainage would improve his overall condition. He is being treated with antibiotics for his pneumonia and would recommend continuation of this. Fluid does appear somewhat loculated. I do think he would be a risk for thoracotomy were we to pursue operative drainage and CT-guided drainage were he to develop more definitive symptoms may be more beneficial. We will follow. Pulmonology is following. Continue aggressive pulmonary toilet and antibiotics per the hospitalist. cc: Meg Roberson MD
[2019-02-02] MEDS: DUONEB (A & A) INH SCH ×4 (03:11→21:34)
[2019-02-02] MEDS: PRILOSEC PO SCH ×2 (06:11→22:02)
[2019-02-02] MEDS: SYNTHROID PO SCH (06:11)
[2019-02-02 07:02] LABS: BASO# 0.06 X1000 (0.0-0.2); EOS# 0.25 X1000 (0.0-0.7); EOS% 4.2 % (0.0-10.0); HEMATOCRIT 33.7 % (42.0-52.0); HEMOGLOBIN 10.9 g/dL (14.0-18.0); IMM GRAN# 0.32 X1000 (0.0-0.04); IMM GRAN% 5.4 % (0.0-0.5); LYMPH# 1.17 X1000 (1.2-3.4); LYMPH% 19.7 % (20.5-51.1); MCH 26.6 PG (27-31); MCHC 32.3 g/dL (33-37); MCV 82.2 FL (81-99); MONO# 0.45 X1000 (0.11-0.59); MONO% 7.6 % (1.7-9.3); MPV 9.4 FL (7.4-10.4); NEUT# 3.68 X1000 (1.4-6.5); NEUT% 62.1 % (42.2-75.2); PLT 307 X1000 (130-400); RDW 14.9 % (11.5-14.5); WBC 5.93 X1000 (4.8-10.8)
[2019-02-02 07:12] LABS: AGAP 10; BUN 14 mg/dL (8-22); CALCIUM 9.1 mg/dL (8.8-10.2); CHLORIDE 95 mmol/L (98-107); COSMO 274; CREATININE 0.9 mg/dL (0.7-1.2); ESTIMATED GFR > 60; GLUCOSE 132 mg/dL (70-104); SODIUM 136 mmol/L (136-145); TCO2 31 mmol/L (25-35)
[2019-02-02 07:21] LABS: EOS 4 % (1-10); LYMPHS 19 % (21-51); MONO 7 % (1-9); SEGS 70 % (42-75)
[2019-02-02] MEDS: NORVASC PO SCH (09:09)
[2019-02-02] MEDS: NEURONTIN PO SCH ×3 (09:09→22:03)
[2019-02-02] MEDS: COLCRYS PO SCH (09:10)
[2019-02-02] MEDS: MAXIPIME 1 GM in NS 50 ML IV SCH ×2 (09:10→22:04)
[2019-02-02] MEDS: MIRALAX PO SCH (09:11)
[2019-02-02] MEDS: VANCOMYCIN 2 GM in NS 500 ML IV SCH (10:00)
--- NOTE | 2019-02-02 12:47 | Diag Imaging Result Doc PS360 ---
CHEST-2 VIEWS - 02/02/2019 INDICATION: POST THORA INSPIR/EXPIR COMPARISON: 01/31/2019 FINDINGS: There has been significant reduction in the left basilar pleural effusion. No pneumothorax. No new infiltrates. Heart size remains normal. IMPRESSION: Significant reduction in the left basilar pleural effusion. No complication. Electronically signed by Ashish Hutson 02/02/2019 12:44 PM
--- NOTE | 2019-02-02 12:57 | Diag Imaging Result Doc PS360 ---
US THORACENTESIS W/IMAGE GUIDE - 02/02/2019 INDICATION: To drain as much possible TECHNIQUE: The risks and benefits of the procedure were discussed with the patient. All questions were answered. Written and verbal informed consent was obtained. Overlying skin was prepped and draped in sterile fashion. Anesthesia was achieved with injection of 10 cc of 1% lidocaine. COMPARISON: Chest CT 01/31/2019 FINDINGS: 600 mL of dark red, thick blood was drained successfully. The patient reported no symptoms from the procedure. IMPRESSION: Successful and uncomplicated ultrasound-guided left thoracentesis. Electronically signed by Ashish Hutson 02/02/2019 12:55 PM
--- NOTE | 2019-02-02 16:18 | PROGRESS NOTE ---
DATE: 02/02/2019 SUBJECTIVE: The patient reports feeling fine. Some shortness of breath while he walks. OBJECTIVE: Vital Signs: Temperature 99.2 degrees, heart rate 74, respiratory rate 20, blood pressure 134/67, O2 saturation 98% 2 L nasal cannula. General Examination: This is a 63-year-old male, lying in bed in no acute distress. HEENT: Head is normocephalic, atraumatic. Neck: No JVD noted. No carotid bruits. No lymphadenopathy. No thyromegaly. Cardiovascular exam: S1, S2 heard. No murmurs, gallops or rubs. Regular rate and rhythm. Respiratory exam: Clear bilaterally to auscultation. Minimal rhonchi in the left base. The patient is not using any accessory muscles or having work of breathing. Abdomen: Soft, nontender to palpation. Bowel sounds present. No organomegaly. Extremities: No clubbing, cyanosis, or edema. Peripheral pulses present in both legs. Neurological exam: Patient is alert and oriented x3. Moves 4 extremities. LABORATORY DATA: Reviewed. ASSESSMENT AND PLAN: 1. Large multiloculated left pleural effusion. Today, patient underwent thoracentesis. We have removed 600 mL of what they describe as dark red thick blood that was drained successfully. The patient reports feeling fine. My plan is to do an x-ray tomorrow and check if the x-ray is normal or at least shows less left pleural effusion. I think we will continue to monitor. Otherwise we may need to talk with General Surgery to see if he is a candidate for any left chest tube placement or not. The feeling from General Surgery is that we are not going to need it. The fact that we have removed 600 mL of urine is really good, so we will see what the x-ray shows. Dr. Lane and Dr. Roberson from General Surgery and Pulmonary are following this patient. We will follow further recommendations. 2. Community-acquired pneumonia. We will continue with cefepime and vancomycin. 3. Hypertension. We will continue with the same management. 4. Hypothyroidism. We will continue with same doses of Synthroid. 5. Disposition: We will continue to monitor this patient closely. cc: Douglas Link MD
[2019-02-02 16:33] LABS: PH BODY FLUID 8.5; SPECIMEN PLEURAL FLUID
[2019-02-02 16:41] LABS: AMYLASE BODY FLUID 16 U/L; GLUCOSE BODY FLUID 135 mg/dL; TOTAL PROT BODY FLUID 4.4 g/dL
[2019-02-02 16:45] LABS: LDH BODY FLUID 920 U/L
[2019-02-02 19:35] LABS: BODY FLUID SOURCE PLEURAL FLUID; WBC BF 1241 /cumm
[2019-02-02 19:48] LABS: MONOS 79 %; POLYS 21 %
[2019-02-02] MEDS: NORCO-7.5 PO PRN (22:02)
[2019-02-03] MEDS: VANCOMYCIN 2 GM in NS 500 ML IV SCH ×2 (02:17→21:04)
[2019-02-03] MEDS: DUONEB (A & A) INH SCH ×4 (03:38→21:42)
[2019-02-03] MEDS: PRILOSEC PO SCH ×2 (06:17→20:34)
[2019-02-03] MEDS: NORCO-7.5 PO PRN ×4 (06:19→23:56)
[2019-02-03] MEDS: SYNTHROID PO SCH (06:19)
[2019-02-03 07:19] LABS: BASO# 0.04 X1000 (0.0-0.2); BASO% 0.6 % (0.0-0.8); EOS# 0.27 X1000 (0.0-0.7); EOS% 3.8 % (0.0-10.0); HEMATOCRIT 35.1 % (42.0-52.0); HEMOGLOBIN 11.4 g/dL (14.0-18.0); IMM GRAN% 2.8 % (0.0-0.5); LYMPH# 1.18 X1000 (1.2-3.4); LYMPH% 16.8 % (20.5-51.1); MCH 26.8 PG (27-31); MCHC 32.5 g/dL (33-37); MCV 82.6 FL (81-99); MONO# 0.55 X1000 (0.11-0.59); MONO% 7.8 % (1.7-9.3); MPV 9.5 FL (7.4-10.4); NEUT# 4.79 X1000 (1.4-6.5); NEUT% 68.2 % (42.2-75.2); PLT 327 X1000 (130-400); RBC 4.25 XMIL (4.7-6.1); WBC 7.03 X1000 (4.8-10.8)
[2019-02-03 07:54] LABS: AGAP 11; BUN 17 mg/dL (8-22); CALCIUM 9.5 mg/dL (8.8-10.2); CHLORIDE 100 mmol/L (98-107); COSMO 287; CREATININE 0.8 mg/dL (0.7-1.2); ESTIMATED GFR > 60; GLUCOSE 136 mg/dL (70-104); POTASSIUM 4.3 mmol/L (3.5-5.1); SODIUM 142 mmol/L (136-145); TCO2 31 mmol/L (25-35)
[2019-02-03] MEDS: COLCRYS PO SCH (08:54)
[2019-02-03] MEDS: NEURONTIN PO SCH ×3 (08:54→20:34)
[2019-02-03] MEDS: MAXIPIME 1 GM in NS 50 ML IV SCH ×2 (08:54→20:29)
[2019-02-03] MEDS: NORVASC PO SCH (08:54)
--- NOTE | 2019-02-03 11:32 | Diag Imaging Result Doc PS360 ---
EXAM: CHEST-2 VIEWS 02/03/2019 HISTORY: left pleural effusion TECHNIQUE: PA and lateral chest COMMENT: There is a large pleural effusion which may be loculated on the left. This has apparently increased slightly in size since 02/02/2019. Otherwise the appearance of the chest has not changed significantly. IMPRESSION: Left pleural effusion. Electronically signed by Derek Boggs 02/03/2019 11:29 AM
[2019-02-03] MEDS: MIRALAX PO SCH (12:30)
--- NOTE | 2019-02-03 12:42 | PROGRESS NOTE ---
DATE: 02/03/2019 SUBJECTIVE: Patient reports feels more chest pain on the left side of the thorax, and that gets worse not only when he walks but also at rest too. He reported that that sensation has been getting worse in the last few days. OBJECTIVE: Vital Signs: Temperature 97.8 degrees, heart rate 81, blood pressure 120/69, and O2 saturation 99% on room air. General: This is a 63-year-old male lying in bed in no acute distress. Cardiovascular: S1, S2 heard. No murmurs, gallops, or rubs. Regular rate and rhythm. Respiratory: Decreased breath sounds in the left pulmonary base. Patient is not using any accessory muscles or having work of breathing. Abdomen: Soft. Nontender to palpation. Bowel sounds present. No organomegaly. Extremities: No clubbing, cyanosis, or edema. Peripheral pulses present in both legs. Neurological: Patient alert and oriented x3. Moves 4 extremities. LABORATORY DATA: White cell count 7.03, hemoglobin 11.4, hematocrit 35.1, and platelets 327,000. BMP is okay. ASSESSMENT AND PLAN: 1. Large multiloculated left pleural effusion. Patient since admission has undergone two thoracentesis, one removed 800 mL of pleural fluid, and the second 1 yesterday remove 600 mL of dark red bloody drainage. The x-ray from today PA and lateral x-ray showed there is a large pleural effusion which may be loculated on the left that has apparently increased slightly. In that regard, I think after we have done two thoracentesis, and there is still large pleural effusion I think at this point the patient may need to have either thoracotomy or chest tube placement because it looks like this is a loculated pleural effusion. I am not sure that is empyema or not. In any case, we will talk with general surgery Dr. Roberson about what we think. Pulmonary is also agreed to proceed more aggressively with this patient because apparently he has failed medical treatment. We will continue with antibiotics. We will wait for opinion from Dr. Roberson. Patient today expressed a great concern about his current medical condition. He reported he had a sister who had a recurrent pleural effusion and pneumonia but unfortunately few months after she was diagnosed with small cell lung cancer and she not too long ago. He wants to be more aggressive with him. 2. Community-acquired pneumonia. We will continue with cefepime and vancomycin. 3. Hypertension - blood pressure is under control. We will continue with the same management. 4. Hypothyroidism. Will continue home dose of Synthroid. 5. Disposition. At this point, we are going to monitor this patient closely. We will see what General Surgery has to say. cc: Douglas Lnik MD MTDD
--- NOTE | 2019-02-03 13:20 | Diag Imaging Result Doc PS360 ---
CT THORAX W/O CONTRAST - 02/03/2019 INDICATION: SOB COMPARISON: 01/31/2019 FINDINGS: There is a moderate left pleural effusion that is overall stable from the prior exam. No pneumothorax. No significant infiltrates. The heart size remains normal. There are some stable nodular densities or nodular infiltrates in the medial right lung base, along the spine. IMPRESSION: No change from prior. This exam was performed using automated exposure control, adjustment of mA or kV according to patient size, and/or use of iterative reconstruction technique Electronically signed by Ashish Hutson 02/03/2019 1:18 PM
[2019-02-03] MEDS: TUMS PO PRN (23:55)
[2019-02-04] MEDS: DUONEB (A & A) INH SCH ×4 (03:14→22:21)
[2019-02-04] MEDS: NORCO-7.5 PO PRN ×2 (06:36→16:56)
[2019-02-04] MEDS: PRILOSEC PO SCH ×2 (06:46→21:06)
[2019-02-04] MEDS: SYNTHROID PO SCH (06:47)
--- NOTE | 2019-02-04 07:22 | PROVIDER PROGRESS NOTE ---
Progress Note Pulmonary Additional Note: Chest CT films reviewed from 02/03/19. He had two thoracentesis and the remaining effusion can be handled with prolonged antibiotics of total 3-4 weeks. Follow up imaging in future is recommended.
[2019-02-04 08:29] LABS: BASO# 0.05 X1000 (0.0-0.2); BASO% 0.7 % (0.0-0.8); EOS# 0.33 X1000 (0.0-0.7); EOS% 4.3 % (0.0-10.0); HEMATOCRIT 33.4 % (42.0-52.0); HEMOGLOBIN 10.9 g/dL (14.0-18.0); IMM GRAN# 0.19 X1000 (0.0-0.04); IMM GRAN% 2.5 % (0.0-0.5); MCH 26.8 PG (27-31); MCHC 32.6 g/dL (33-37); MCV 82.1 FL (81-99); MONO# 0.66 X1000 (0.11-0.59); MONO% 8.6 % (1.7-9.3); MPV 9.9 FL (7.4-10.4); NEUT# 5.11 X1000 (1.4-6.5); NEUT% 66.9 % (42.2-75.2); PLT 330 X1000 (130-400); RBC 4.07 XMIL (4.7-6.1); WBC 7.64 X1000 (4.8-10.8)
[2019-02-04 08:40] LABS: AGAP 11; BUN 17 mg/dL (8-22); CHLORIDE 96 mmol/L (98-107); COSMO 275; CREATININE 0.9 mg/dL (0.7-1.2); ESTIMATED GFR > 60; GLUCOSE 120 mg/dL (70-104); POTASSIUM 4.1 mmol/L (3.5-5.1); SODIUM 136 mmol/L (136-145); TCO2 29 mmol/L (25-35)
[2019-02-04] MEDS: COLCRYS PO SCH (10:32)
[2019-02-04] MEDS: MAXIPIME 1 GM in NS 50 ML IV SCH ×2 (10:32→21:07)
[2019-02-04] MEDS: NEURONTIN PO SCH ×3 (10:33→21:06)
[2019-02-04] MEDS: NORVASC PO SCH (10:33)
[2019-02-04] MEDS: MIRALAX PO SCH (10:39)
--- NOTE | 2019-02-04 15:35 | PROGRESS NOTE ---
DATE: 02/04/2019 SUBJECTIVE: The patient is still reporting some chest pain on the left side of the thorax that was getting a little worse. He denies any other complaints. OBJECTIVE: Vital Signs: Temperature 98.4 degrees, heart rate 74, respiratory rate 15, blood pressure 138/69 O2 saturation 95% on room air. General Examination: This is a 63-year-old male, lying in bed, in no acute distress. Cardiovascular: S1, S2 heard. No murmurs, gallops, or rubs. Regular rate and rhythm. Respiratory: Decreased breath sounds in the left pulmonary base. The patient not using any accessory muscles or having work of breathing. Abdomen: Soft, nontender to palpation. Bowel sounds present. No organomegaly. Extremities: No clubbing, cyanosis, or edema. Peripheral pulses present in both legs. Neurological: Patient alert and oriented x3. Moves 4 extremities. LABORATORY DATA: White cell count 7.64, hemoglobin 10.9, hematocrit 33.4, platelets 330,000. BMP normal. ASSESSMENT AND PLAN: 1. Large multiloculated left pleural effusion. Since admission, the patient has undergone 2 thoracenteses. One we were able to remove 800 mL of pleural effusion. The second 2 days ago, we remove 600 mL of dark red bloody drainage. The patient reports that he has been in [facility] from 12/30/2018 to 01/03/[address] scans that noted still pleural effusion and he returned to [facility] because of persistent symptoms. Since then, he has received antibiotics for a total of 11 days. Unfortunately, he required two thoracentesis and the last x-ray was informed with left pleural effusion. Actually, the CT of the chest done yesterday showed a moderate left pleural effusion, overall stable from the prior exam. No significant infiltrate. The patient is very upset to me and he reports that since the beginning of December, he has had basically only antibiotics and he is frustrated why he still have same left pleural effusion he had in December and asked me why did not get any other procedures done. We informed that his primary surgeon assigned here in the hospital Dr. Roberson mentioned that we do not need to do any thoracostomy or placing any chest tube. The patient is still very upset and he requests to have a 2nd opinion from General Surgery standpoint because he considered that he needs to have surgery on him. We agreed to consult Dr. Cagle, who is collections attorney today. We will see what he has to say. I have talked with Dr. Lane who thinks that this left pleural effusion needs to be treated with antibiotics only. The patient has received 4 days of IV antibiotics at the beginning of December and so far here 11 more days but apparently there has not been too much improvement in that. I think providing oral antibiotics will not help too much considering he has received so far 14 days total of broad spectrum IV antibiotics. In any case, we will see what both specialists have to say. In the meantime, he prefers to stay here in the hospital. 2. Community-acquired pneumonia. Patient is on cefepime and vancomycin. Actually vancomycin was added recently to his current treatment. We will continue to monitor. 3. Hypertension. Blood pressure is well controlled. We will continue with same management. 4. Hypothyroidism. Will continue home doses of Synthroid. 5. Disposition. At this point, as we mentioned before, patient was offered the option to go home today with oral antibiotics for 2 more weeks and have an appointment with Pulmonary and General Surgery to have another CT of the chest repeated but he refused. He wants to have another opinion from General Surgery. We will see what they have to say. cc: Douglas Link MD MTDMarylou
[2019-02-04] MEDS: VANCOMYCIN 2 GM in NS 500 ML IV SCH (16:36)
--- NOTE | 2019-02-04 23:49 | GENERAL SURGERY PROGRESS NOTE ---
DATE: 02/04/2019 REASON FOR CONSULTATION: I have been asked to render a second opinion regarding the need for operative intervention. HISTORY OF PRESENT ILLNESS: Mr. Maxwell is 63, and was admitted with pneumonia and has a parapneumonic effusion. He has had it tapped twice and both times fluid is sterile. The fluid quantity is less than it was when he was admitted. Mr. Maxwell is afebrile with satisfactory hemodynamics. He has breath sounds bilaterally, a bit diminished on the left base. Mr. Maxwell has been ambulatory up and down the bui without oxygen. ASSESSMENT/RECOMMENDATIONS: Sterile parapneumonic effusion. I think that he will continue to improve, and I see no reason to try to place chest tubes to evacuate any of the fluid at this point. I think removing the proteinaceous debris in the base of the left lung is not needed because of his clinical situation. I would recommend that he go home and be allowed to recover without surgery. If in the future, 2 to 3 months from now,if he has restricted pulmonary function and a limited reserve, he could be considered for decortication of the lower lung at that point, but I do not think that will be necessary. I discussed this with him. He did not necessarily agree because he thinks that intervening now would possibly keep him from having to come back in the future, as he had to return after being seen in [facility] for this current illness. cc: Amanuel Cagle MD [facility]
[2019-02-05] MEDS: DUONEB (A & A) INH SCH ×2 (04:35→09:16)
[2019-02-05] MEDS: SYNTHROID PO SCH (06:14)
[2019-02-05] MEDS: PRILOSEC PO SCH (06:14)
[2019-02-05] MEDS: NORCO-7.5 PO PRN (06:14)
[2019-02-05 08:07] VITALS: BP 125/66
[2019-02-05] MEDS: MIRALAX PO SCH (08:42)
[2019-02-05] MEDS: NEURONTIN PO SCH (08:42)
[2019-02-05] MEDS: MAXIPIME 1 GM in NS 50 ML IV SCH (08:42)
[2019-02-05] MEDS: NORVASC PO SCH (08:42)
[2019-02-05] MEDS: COLCRYS PO SCH (08:42)
[2019-02-05 09:43] LABS: BASO# 0.04 X1000 (0.0-0.2); BASO% 0.5 % (0.0-0.8); EOS# 0.37 X1000 (0.0-0.7); EOS% 5.1 % (0.0-10.0); HEMATOCRIT 33.7 % (42.0-52.0); IMM GRAN# 0.12 X1000 (0.0-0.04); IMM GRAN% 1.6 % (0.0-0.5); LYMPH# 1.17 X1000 (1.2-3.4); MCH 26.8 PG (27-31); MCHC 32.6 g/dL (33-37); MONO# 0.37 X1000 (0.11-0.59); MONO% 5.1 % (1.7-9.3); MPV 9.5 FL (7.4-10.4); NEUT# 5.25 X1000 (1.4-6.5); NEUT% 71.7 % (42.2-75.2); PLT 323 X1000 (130-400); RBC 4.11 XMIL (4.7-6.1); WBC 7.32 X1000 (4.8-10.8)
--- NOTE | 2019-02-06 04:28 | DISCHARGE SUMMARY ---
ADMISSION DATE: 01/24/2019 DISCHARGE DATE: 02/05/2019 ADMITTING DIAGNOSES: 1. Left pleural effusion. 2. Pneumonia. 3. Hypertension. 4. Hyperlipidemia. 5. Hypothyroidism. DISCHARGE DIAGNOSES: 1. Left multiloculated pleural effusion, improved. 2. Community-acquired pneumonia. 3. Hypertension. 4. Hypothyroidism. PROCEDURES AND FINDINGS: Pulmonary arteriogram performed on 01/24/2019 showed a very large loculated pleural effusion on the left that may be tracking into the soft tissues at the left lower lateral chest wall, a stable nodularity at the medial right lower lobe. Ultrasound guided thoracentesis done on 01/25/2019 was completed with 800 mL of grossly bloody fluid drained from the left lung. Chest CT performed on 01/31/2019 showed a loculated left pleural effusion that was somewhat smaller than the previous study, but fairly large and nonspecific nodularity at the medial aspect of the right lower lobe that had increased in prominence. Ultrasound thoracentesis performed on 02/02/2019 of the left lobe provided 600 mL of dark red thick blood drained successfully from the left lung. CT scan of the chest performed 02/03/2019 showed no change from prior exam. Chest x-ray shows a left pleural effusion. Cytology reports from drainage from thoracentesis are negative for malignancy. HOSPITAL COURSE: Mr. Maxwell is a 63-year-old male who had recently been seen for community- acquired pneumonia at [facility]. He stayed around 4 days and was discharged. He was seen by his property officer, Dr. Ashish Morrison. He progressively continued to having more shortness of breath for 2 to 3 days, decided to come to the emergency room. Chest x-ray was performed in the emergency room, showed a large left pleural effusion. Pulmonary arteriogram was performed, showed a loculated pleural effusion. The patient was admitted for pulmonary consultation. The patient was seen by Dr. Lane. Ultrasound thoracentesis was performed by Dr. Boggs on 01/25/2019, 800 mL of bloody fluid was withdrawn from the left lung during procedure. The patient had a repeat CT scan on 01/31/2019. CT scan continued to show pleural effusion. Surgery was consulted, Dr. Gerardo Roberson. From a clinical standpoint, patient did not appear to be any distress despite the pleural effusion and did not appear to need a chest tube at the present time. Another thoracentesis was performed on 02/02/2019, 600 mL of dark red blood was drawn from the left lung. This was done by Dr. Ashish Hutson. CT was performed on 02/03/2019. This was compared to the 01/31/2019 CT. There was no change from the prior CT. The patient had been on antibiotics during the entire hospital stay and had several ultrasound procedures removing fluid from the lung. The patient, however, continued to have fluid on the lung. After a 2nd opinion from Dr. Amanuel Cagle, the surgeon, he recommended the patient not have any chest tubes placed, patient be re-evaluated in a few months and continue on antibiotics and as long as his pulmonary function continued to improve he could be followed up with his property officer. The patient has not been febrile. He has been hemodynamically stable. He is not short of breath. He has been on room air, up walking the halls for several days and does not appear to be any distress at this time. Patient is to follow up with Dr. Ashish Morrison, Dr. Lane and Dr. Amanuel Cagle. DISCHARGE LABORATORY DATA: White blood cell count 7.32, hemoglobin 11, hematocrit 33.7, platelet count 323,000. Chemistry 136, potassium 4.1, chloride 96, carbon dioxide 29, anion gap 11, BUN 17, creatinine 0.9, GFR is greater than 60, glucose is 120, calcium is 9.0. DISCHARGE MEDICATIONS: 1. Amlodipine besylate 10 mg p.o. daily. 2. Gabapentin 600 mg p.o. b.i.d. 3. ProAir inhaler 8.5 g 1 to 2 puffs inhaled q.4-6 hours p.r.n. 4. Synthroid 50 mcg p.o. daily. 5. Cefuroxime 500 mg p.o. b.i.d. 6. Doxycycline 100 mg p.o. b.i.d. 7. Medrol Dosepak 4 mg p.o. as directed. 8. [place] 7.5 mg/325 mg 1 to 2 tablets p.o. q.6 hours p.r.n. pain. DISCHARGE DIET: Resume diet as tolerated. DISCHARGE ACTIVITY.: Resume activity as tolerated. DISPOSITION DISCHARGE INSTRUCTIONS: The patient is discharged home with self care. He is to follow up with Dr. Ashish Morrison. He is to call and make an appointment with him next week. The patient is to call and schedule an appointment to meet with Dr. Lane in 2 weeks. The patient is to call and schedule appointment with Dr. Cagle for 2 weeks. All other further recommendations per primary care doctor, Dr. Ashish Morrison. Dictated by KINDRA Ruvalcaba for Douglas Link MD Addendum: Patient seen and examined by myself. Agree with KINDRA note. It reflects my assessment and plan. Patient is being discharged in stable condition. Will be seen by General Surgery and Pulmonary in two weeks. cc: MD Ashish Sierra MD Mamoun I. Najjar, MD Robert C. Walker, MD MTDD
== END 2019-02-05 11:49 | disposition home or self-care (01) | DRG 193 ==
LOC: P.ED 17:31 → SUATTDRO 21:34 → 3N 21:34 → ICU 01-25 18:47 → 3N 01-27 10:29
PROVIDERS: ATTEND Internal Medicine

== ENCOUNTER 2019-04-11 09:31 | Inpatient (IN) ==
[2019-04-11 10:20] LABS: BE 6.6 mmoll (-3.0-3.0); BLOOD TYPE ARTERIAL; HCO3-(ACT) 29.7 mmoll (20.0-26.0); METHB 0.8 % (0.0-1.5); O2(CT) 16.8 mL/dL (15.0-23.0); PCO2(98.6) 40 mmHg (35-45); SAMPLE BLOOD; SAO2 89.6 % (95.0-100.0); THB 14.1 g/dL (11.5-17.4); pH(98.6) 7.49 (7.35-7.45)
[2019-04-11] MEDS ORDERED: DUONEB (A & A) INH ONE (10:28)
[2019-04-11 10:43] LABS: BASO# 0.02 X1000 (0.0-0.2); BASO% 0.1 % (0.0-0.8); EOS# 0.02 X1000 (0.0-0.7); EOS% 0.1 % (0.0-10.0); HEMOGLOBIN 13.2 g/dL (14.0-18.0); IMM GRAN# 0.11 X1000 (0.0-0.04); IMM GRAN% 0.8 % (0.0-0.5); LYMPH# 1.02 X1000 (1.2-3.4); LYMPH% 7.2 % (20.5-51.1); MCH 24.5 PG (27-31); MCHC 32.2 g/dL (33-37); MCV 76.1 FL (81-99); MONO# 1.59 X1000 (0.11-0.59); MONO% 11.3 % (1.7-9.3); MPV 10.2 FL (7.4-10.4); NEUT# 11.33 X1000 (1.4-6.5); NEUT% 80.5 % (42.2-75.2); PLT 323 X1000 (130-400); RBC 5.39 XMIL (4.7-6.1); WBC 14.09 X1000 (4.8-10.8)
--- NOTE | 2019-04-11 10:56 | Diag Imaging Result Doc PS360 ---
EXAM: CHEST-1 VIEW - 04/11/2019 HISTORY: recent pneumonia cough sepsis alert TECHNIQUE: Portable chest one view COMPARISON: 02/03/2019 FINDINGS: Inspiration is mildly shallow. Heart size appears within normal limits. The left pleural effusion has decreased substantially. There are ill-defined bilateral lower lung nodular infiltrates which appear to have increased, although compares on the left is limited due to the presence of the larger pleural effusion on the prior exam. There is no pneumothorax identified. IMPRESSION: Mildly shallow inspiration. Ill-defined bilateral lower lung nodular infiltrates, increased compared to prior. Considerations include atypical inflammatory process/pneumonia and possibly metastatic disease. Electronically signed by Atul Jacobs 04/11/2019 10:54 AM
[2019-04-11 10:59] LABS: AGAP 14; ALBUMIN 4.2 g/dL (3.5-5.0); ALKALINE PHOSPHATASE 101 U/L (32-122); BUN 13 mg/dL (8-22); CALCIUM 9.7 mg/dL (8.8-10.2); CHLORIDE 94 mmol/L (98-107); CK PROFILE 59 U/L (24-204); COSMO 276; ESTIMATED GFR > 60; GLUCOSE 168 mg/dL (70-104); GOT 21 U/L (10-34); GPT 22 U/L (10-44); POTASSIUM 3.3 mmol/L (3.5-5.1); SODIUM 136 mmol/L (136-145); TCO2 28 mmol/L (25-35); TOTAL PROTEIN 7.3 g/dL (6.3-8.3)
[2019-04-11 11:08] LABS: INR 1.14; PROTIME 15.2 Seconds (11.0-16.0)
[2019-04-11 11:09] LABS: PTT 32.6 Seconds (22.3-41.8)
[2019-04-11 11:17] LABS: CLARITY CLEAR (CLEAR); COLOR YELLOW; URINE BACTERIA 1+ /HFP; URINE CAST NONE SEEN /LPF; URINE CRYSTAL NONE SEEN /HPF; URINE EPITHELIAL CELLS <10 /HPF (<10); URINE RBC <10 /HPF (<10); URINE SOURCE CLEAN CATCH; URINE WBC <10 /HPF (<10); URINE YEAST NONE SEEN /HPF
[2019-04-11 11:18] LABS: BILIRUBIN URINE NEGATIVE (NEGATIVE); BLOOD URINE 1+ (NEGATIVE); GLUCOSE URINE NEGATIVE (NEGATIVE); KETONE URINE NEGATIVE (NEGATIVE); LEUKOCYTES URINE TRACE (NEGATIVE); NITRITE URINE NEGATIVE (NEGATIVE); PH URINE 6.5; PROTEIN URINE 1+(30 mg/dL) mg/dL (NEGATIVE); SP GRAVITY URINE 1.015; UROBILINOGEN URINE NORMAL
[2019-04-11 11:23] LABS: ALLEN TEST YES; MODALITY ROOM AIR; O2HB 84.9 % (95.0-99.0); PO2(98.6) 47 mmHg (60-100)
[2019-04-11] MEDS ORDERED: CARDIZEM IV ONE (12:05)
[2019-04-11] MEDS ORDERED: TYLENOL PO PRN ×2 (13:04→13:28)
[2019-04-11] MEDS ORDERED: DUONEB (A & A) INH PRN (13:04)
[2019-04-11] MEDS ORDERED: ZOFRAN IV PRN ×2 (13:04→13:28)
[2019-04-11] MEDS ORDERED: NORCO-5 PO PRN (13:09)
[2019-04-11] MEDS ORDERED: LEVAQUIN 750 MG/D5W 750 MG/150 ML IVPB IV SCH (13:15)
[2019-04-11] MEDS ORDERED: VANCOMYCIN IV PER PHARMACY MISC SCH (13:15)
--- NOTE | 2019-04-11 13:56 | Diag Imaging Result Doc PS360 ---
EXAM: CT ANGIOGRM PULMONARY ARTERIES INDICATION: sob TECHNIQUE: This exam was performed using automated exposure control, adjustment of mA or kV according to patient size, and/or use of iterative reconstruction technique. Thin section axial images and 3-D MIPS were obtained. COMPARISON: 02/03/2019 FINDINGS: There is no evidence of pulmonary embolism. There is no evidence of aortic dissection or aneurysm. There is no evidence of significant spinal or hilar lymphadenopathy. There is no cardiomegaly. Since the prior CT, the large loculated pleural fluid collection on the left has decreased substantially in size. There is still a small amount of pleural fluid on the left, however. There is mucoid debris in the trachea and in the distal bronchi at the lung bases. There is extensive patchy airspace consolidation at the mid and lower lung zones, mainly at the lung bases in the lower lobes but also the right middle lobe, lingula, and lower right upper lobe. There are multiple tree-in-bud opacities. This indicates bronchiolitis and pneumonia. Consider aspiration pneumonia given the distribution. The focal nodular opacity in the medial right lower lobe is essentially stable. Limited views of the upper abdomen reveals stable hepatic steatosis and mild splenomegaly. IMPRESSION: 1.Interval substantial decrease in size of the loculated effusion on the left. 2.Extensive patchy airspace consolidation with tree-in-bud opacities and bronchial mucous plugging with a basilar predominance consistent with pneumonia. Consider aspiration pneumonia. 3.No evidence of pulmonary embolism. 4.Other incidental/nonacute findings detailed above. Electronically signed by Aris Khalil 04/11/2019 1:54 PM
--- NOTE | 2019-04-11 15:09 | PROVIDER DOCUMENTATION ---
This chart was entered by Elena Villalobos Scribe, acting as scribe for Marimar Horta MD. HPI-Respiratory General - General Chief Complaint: Rib Pain Stated Complaint: LEFT FLANK PAIN Time Seen by Provider: 04/11/19 10:25 Source: patient Allergies/Adverse Reactions: Patient Allergies Allergy/AdvReac Type Severity Reaction Status Date / Time No Known Allergies Allergy Verified 04/11/19 10:29 Home Medications: Home Medication List Medication Instructions Recorded Confirmed Last Taken Type Albuterol Sulfate [Proair Hfa] 1 - 2 puff INH Q4-6H PRN PRN 12/30/18 01/24/19 Unknown History Amlodipine Besylate 10 mg PO DAILY 12/30/18 01/24/19 Unknown History Gabapentin 600 mg PO TID 12/30/18 01/24/19 Unknown History Methylprednisolone [Medrol Dosepak] 4 mg PO .PER PACKAGE #1 pkg 01/02/19 01/24/19 Unknown Rx Levothyroxine [Synthroid] 50 microgm PO DAILY 01/24/19 01/24/19 Unknown History Cefuroxime Axetil [Cefuroxime] 500 mg PO BID #28 tab 02/05/19 Unknown Rx Doxycycline 100 mg PO BID #28 tab 02/05/19 Unknown Rx Hydrocodone/APAP 7.5 mg/325 mg 1 - 2 ea PO Q6H PRN PRN #40 tab 02/05/19 Unknown Rx [[place]-7.5] - History of Present Illness-Resp Nature of Presenting Problem: Patient is a 63 year old male who presents with shortness of breath. States left side rib pain and cough with shortness of breath. Denies fever. Quality of Pain: reports: sharp Severity in ED: reports: mild Onset/Duration: reports: gradual Timing: reports: still present, getting worse Cough Quality/Degree: reports: moderate, productive cough Current Respiratory Medication Therapy: Initiated see nurses note Modifying Factors: worse with: coughing, deep breath Associated Symptoms: reports: cough, shortness of breath, other (left side rib pain) Similar Symptoms Previously?: Yes Recently seen or treated by another doctor?: No Review of Systems - Adult - REVIEW OF SYSTEMS - ADULT Constitutional: reports: no symptoms reported. denies: chills, fever, fatique Eyes: reports: no symptoms reported Ears, Nose, Mouth & Throat: reports: no symptoms reported Cardiovascular: reports: no symptoms reported Respiratory: reports: see HPI, cough, shortness of breath. denies: wheezing Gastrointestinal: reports: no symptoms reported Genitourinary: reports: no symptoms reported Musculoskeletal: reports: see HPI, other (left side rib pain). denies: back pain, neck pain Integumentary: reports: no symptoms reported Neurological: reports: no symptoms reported Psychiatric: reports: no symptoms reported Endocrine: reports: no symptoms reported Hematologic/Lymphatic: reports: no symptoms reported Allergic/Immunologic: reports: no symptoms reported All Other Systems: Reviewed and Negative Past History - Adult - PAST MEDICAL HISTORY-ADULT Review of Records: reports: Old Records Reviewed, Nursing Assessment Review, Medications Reviewed, Social history reviewed & non-contributory. Major Childhood Illnesses: reports: denies history Cardiovascular: reports: HTN, hyperlipidemia Respiratory: reports: pneumonia Gastrointestinal: reports: denies history Obstetrical/Gynecological: reports: denies history Genitourinary: reports: denies history Musculoskeletal: reports: chronic pain, intervertebral disc disease Neurological: reports: denies history Psychiatric: reports: anxiety Endocrine/Immune: reports: thyroid disorder Other Conditions: reports: denies history - PRIOR SURGERIES/PROCEDURES Surgical/Procedure History: reports: reviewed, not pertinent - IMMUNIZATION STATUS Childhood Immunizations: See Nurse Assessment Flu Vaccine: See Nurse Assessment - FAMILY HISTORY Family History: reviewed, not pertinent - SOCIAL HISTORY Smoking: denies Substance Use: alcohol Alcohol Use Frequency: rarely Physical Exam-General - PHYSICAL EXAM-ADULT Initial Vital Signs Reviewed: Yes - CONSTITUTIONAL General Appearance: alert, mild distress. negative: lethargic - RESPIRATORY Respiratory: wheezing (bilateral), other (left lateral rib tenderness). negative: respiratory distress, splinting - CARDIOVASCULAR Cardiovascular: normal peripheral pulses, tachycardia. negative: systolic murmur - GASTROINTESTINAL (ABDOMEN) Abdominal Exam: normal bowel sounds, non tender, soft. negative: guarding - MUSCULOSKELETAL Extremity: normal inspection. negative: erythema, pedal edema - SKIN Integumentary: normal color, normal turgor, warm/dry. negative: cyanosis, rash - NEUROLOGIC Neurologic: grossly normal. negative: aphasia, facial droop - PSYCHIATRIC Psych/Mental Status: normal mood/affect, oriented x 3. negative: anxious Progress - PLAN OF CARE/RESULTS Progress/Plan/Lab Results: Vital Signs - 8 hr 04/11/19 09:53 04/11/19 10:30 Temperature 99 F Pulse Rate 105 H 101 H Respiratory Rate 24 22 Blood Pressure 133/76 O2 Sat by Pulse Oximetry 93 L 95 Laboratory Results - last 24 hr 04/11/19 04/11/19 04/11/19 09:50 10:25 10:25 WBC 14.09 H RBC 5.39 Hgb 13.2 L Hct 41.0 L MCV 76.1 L MCH 24.5 L MCHC 32.2 L RDW Std Deviation 15.0 H Plt Count 323 MPV 10.2 Immature Gran % (Auto) 0.8 H Neut % (Auto) 80.5 H Lymph % (Auto) 7.2 L [place] % (Auto) 11.3 H Eos % (Auto) 0.1 Baso % (Auto) 0.1 Immature Gran # (Auto) 0.11 H Neut # (Auto) 11.33 H Lymph # (Auto) 1.02 L [place] # (Auto) 1.59 H Eos # (Auto) 0.02 Baso # (Auto) 0.02 PT INR PTT (Actin FS) Specimen Type ARTERIAL Sample Site L RADIAL pH 7.49 H pCO2 40 pO2 47 L* HCO3 29.7 H Base Excess 6.6 H Oxyhemoglobin 84.9 L* ABG O2 Sat (Calculated) 16.8 ABG O2 Saturation 89.6 L ABG Carboxyhemoglobin 4.50 H ABG Methemoglobin 0.8 Fish Test YES A-a O2 Difference 53.0 Total Hemoglobin 14.1 Lactate 1.50 Blood Gas Modality ROOM AIR FiO2 % 21.0 Sodium 136 Potassium 3.3 L Chloride 94 L Carbon Dioxide 28 Anion Gap 14 BUN 13 Creatinine 1.0 Estimated GFR/1.73 m2 > 60 BUN/Creatinine Ratio 13 Glucose 168 H Calculated Osmolality 276 Calcium 9.7 Total Bilirubin 1.20 H AST 21 ALT 22 Alkaline Phosphatase 101 Creatine Kinase 59 Troponin T Total Protein 7.3 Albumin 4.2 Globulin 3.0 Albumin/Globulin Ratio 1.0 Plasma Lactate Urine Source Urine Color Urine Clarity Urine pH Ur Specific Mckenzie Urine Protein Urine Ketones Urine Blood Urine Nitrite Urine Bilirubin Urine Urobilinogen Urine Microscopic RBC Urine WBC Urine Microscopic WBC Ur Epithelial Cells Urine Crystals Urine Bacteria Urine Casts Urine Yeast Urine Glucose 04/11/19 04/11/19 04/11/19 10:25 10:25 10:25 WBC RBC Hgb Hct MCV MCH MCHC RDW Std Deviation Plt Count MPV Immature Gran % (Auto) Neut % (Auto) Lymph % (Auto) [place] % (Auto) Eos % (Auto) Baso % (Auto) Immature Gran # (Auto) Neut # (Auto) Lymph # (Auto) [place] # (Auto) Eos # (Auto) Baso # (Auto) PT 15.2 INR 1.14 PTT (Actin FS) 32.6 Specimen Type Sample Site pH pCO2 pO2 HCO3 Base Excess Oxyhemoglobin ABG O2 Sat (Calculated) ABG O2 Saturation ABG Carboxyhemoglobin ABG Methemoglobin Fish Test A-a O2 Difference Total Hemoglobin Lactate Blood Gas Modality FiO2 % Sodium Potassium Chloride Carbon Dioxide Anion Gap BUN Creatinine Estimated GFR/1.73 m2 BUN/Creatinine Ratio Glucose Calculated Osmolality Calcium Total Bilirubin AST ALT Alkaline Phosphatase Creatine Kinase Troponin T < 0.010 Total Protein Albumin Globulin Albumin/Globulin Ratio Plasma Lactate 1.7 Urine Source Urine Color Urine Clarity Urine pH Ur Specific Mckenzie Urine Protein Urine Ketones Urine Blood Urine Nitrite Urine Bilirubin Urine Urobilinogen Urine Microscopic RBC Urine WBC Urine Microscopic WBC Ur Epithelial Cells Urine Crystals Urine Bacteria Urine Casts Urine Yeast Urine Glucose 04/11/19 10:55 WBC RBC Hgb Hct MCV MCH MCHC RDW Std Deviation Plt Count MPV Immature Gran % (Auto) Neut % (Auto) Lymph % (Auto) [place] % (Auto) Eos % (Auto) Baso % (Auto) Immature Gran # (Auto) Neut # (Auto) Lymph # (Auto) [place] # (Auto) Eos # (Auto) Baso # (Auto) PT INR PTT (Actin FS) Specimen Type Sample Site pH pCO2 pO2 HCO3 Base Excess Oxyhemoglobin ABG O2 Sat (Calculated) ABG O2 Saturation ABG Carboxyhemoglobin ABG Methemoglobin Fish Test A-a O2 Difference Total Hemoglobin Lactate Blood Gas Modality FiO2 % Sodium Potassium Chloride Carbon Dioxide Anion Gap BUN Creatinine Estimated GFR/1.73 m2 BUN/Creatinine Ratio Glucose Calculated Osmolality Calcium Total Bilirubin AST ALT Alkaline Phosphatase Creatine Kinase Troponin T Total Protein Albumin Globulin Albumin/Globulin Ratio Plasma Lactate Urine Source CLEAN CATCH Urine Color YELLOW Urine Clarity CLEAR Urine pH 6.5 Ur Specific Mckenzie 1.015 Urine Protein 1+(30 mg/dL) A Urine Ketones NEGATIVE Urine Blood 1+ A Urine Nitrite NEGATIVE Urine Bilirubin NEGATIVE Urine Urobilinogen NORMAL Urine Microscopic RBC <10 Urine WBC TRACE A Urine Microscopic WBC <10 Ur Epithelial Cells <10 Urine Crystals NONE SEEN Urine Bacteria 1+ Urine Casts NONE SEEN Urine Yeast NONE SEEN Urine Glucose NEGATIVE Orders Category Date Time Status Admit - [facility] Routine AdmDCTranf 04/11/19 13:02 Active Activity - Up with Assistance ORDERED Care 04/11/19 13:02 Active Cardiac Monitoring DIRECTED Care 04/11/19 10:03 Active DVT/PE Risk Assess/Protocol [QM] ORDERED Care 04/11/19 13:02 Active Elevate Head of Bed DIRECTED Care 04/11/19 13:02 Active Encourage Fluids DIRECTED Care 04/11/19 13:02 Active IV Insertion ORDERED Care 04/11/19 10:03 Completed Intake and Output-Strict Q 8-HR ASSESS Care 04/11/19 13:02 Active Notify MD of + Sepsis Screen NOW Care 04/11/19 10:03 Active Notify Physician As Ordered Care 04/11/19 10:03 Active Nursing- Assist w/ IS as order ORDERED Care 04/11/19 13:03 Active Nursing- MD Consult Request ROUTINE Care 04/11/19 13:06 Active Turn, Cough and Deep Breathe Q2HR Care 04/11/19 13:02 Active Vital Signs Order Q 8-HR ASSESS Care 04/11/19 13:02 Active Z-Document. for Tele Applied ORDERED Care 04/11/19 13:03 Active MD [Physician/Provider Consults] Routine Cons 04/11/19 13:06 Ordered Regular Diet Diet 04/11/19 13:02 Active CHEST-1 VIEW [RAD] Stat Exams 04/11/19 10:03 Completed CTA [CT ANGIOGRM PULMONARY ARTERIES] [CT] Stat Exams 04/11/19 12:30 Completed ABG [RESP] Routine Lab 04/11/19 09:50 Completed BLOOD CULTURE [BLDCUL] Stat Lab 04/11/19 10:25 Results CBC WITH DIFF [HEME] Stat Lab 04/11/19 10:25 Completed CBC WITH NO DIFF [HEME] Routine Lab 04/12/19 06:00 Ordered CK PROFILE [SP CHEM] Stat Lab 04/11/19 10:25 Completed COMPREHENSIVE METABOLIC PANEL [CHEM] Routine Lab 04/12/19 06:00 Ordered COMPREHENSIVE METABOLIC PANEL [CHEM] Stat Lab 04/11/19 10:25 Completed LACTATE, PLASMA [CHEM] Q3H Lab 04/11/19 10:25 Completed PROTIME WITH INR [COAG] Stat Lab 04/11/19 10:25 Completed PTT [COAG] Stat Lab 04/11/19 10:25 Completed SPUTUM CULTURE WITH GRAM STAIN [RM] Routine Lab 04/11/19 13:21 Ordered TROPONIN T Stat Lab 04/11/19 10:[address] W/POSS RFLX CULT [URINALYSIS] Stat Lab 04/11/19 10:55 Completed URINE CULTURE [RM] Routine Lab 04/11/19 10:35 Received Acetaminophen [Tylenol] Med 04/11/19 13:04 Discontinued 650 mg PO Q6H PRN PRN Albuterol 2.5MG/Ipratrop 0.5MG [Duoneb (A & A)] Med 04/11/19 10:28 Discontinued 3 ml INH NOW ONE Albuterol 2.5MG/Ipratrop 0.5MG [Duoneb (A & A)] Med 04/11/19 13:04 Discontinued 3 ml INH Q2H PRN PRN Diltiazem [Cardizem] Med 04/11/19 12:05 Discontinued 10 mg IV NOW ONE Hydrocodone/APAP 5 mg/325 mg [[place]-5] Med 04/11/19 13:09 Discontinued 1 each PO Q4H PRN PRN Levofloxacin 750 mg/D5w [Levaquin 750 mg/D5w] Med 04/11/19 13:15 Discontinued 750 mg in 150 ml IV Q24H Ondansetron [Zofran] Med 04/11/19 13:04 Discontinued 4 mg IV Q4-6H PRN PRN Pharmacy Order [Vancomycin IV Per Pharmacy] Med 04/11/19 13:15 Ordered 1 each MISC DIRECTED Aerosol Treatments Routine Ot 04/11/19 10:28 Completed Aerosol Treatments Routine Ot 04/11/19 13:06 Active Aerosol Treatments Stat Ot 04/11/19 10:28 Completed Aerosol Treatments Stat Ot 04/11/19 13:06 Active Incentive Spirometer Routine Ot 04/11/19 13:02 Active Oxygen Device Routine Ot 04/11/19 13:02 Active Oxygen Device Stat Ot 04/11/19 10:03 Active Pulse Oximetry Routine Ot 04/11/19 13:02 Active Telemetry [OM.EQ] Routine Ot 04/11/19 13:02 Active Transfer/Admit Order [TRANSFER] Routine Transfer 04/11/19 13:08 Completed Result Diagrams: 04/11/19 10:25 04/11/19 10:25 - XRAY 1 XRAY Study: Chest Impression: See EMR Report ( EXAM: CHEST-1 VIEW - 04/11/2019 HISTORY: recent pneumonia cough sepsis alert TECHNIQUE: Portable chest one view COMPARISON: 02/03/2019 FINDINGS: Inspiration is mildly shallow. Heart size appears within normal limits. The left pleural effusion has decreased substantially. There are ill-defined bilateral lower lung nodular infiltrates which appear to have increased, although compares on the left is limited due to the presence of the larger pleural effusion on the prior exam. There is no pneumothorax identified. IMPRESSION: Mildly shallow inspiration. Ill-defined bilateral lower lung nodular infiltrates, increased compared to prior. Considerations include atypical inflammatory process/pneumonia and possibly metastatic disease. Electronically signed by Atul Jacobs 04/11/2019 10:54 AM 04/11/19 1054 Interpreting Physician: Atul Jacobs MD Dictated Date/Time: 04/11/19 1049 cc: Marimar Horta MD; Ashish Morrison Jr, MD) - CT/MRI 1 CT Study: Thorax, other Impression: See EMR Report (MPRESSION: 1.Interval substantial decrease in size of the loculated effusion on the left. 2.Extensive patchy airspace consolidation with tree-in-bud opacities and bronchial mucous plugging with a basilar predominance consistent with pneumonia. Consider aspiration pneumonia. 3.No evidence of pulmonary embolism. 4.Other incidental/nonacute findings detailed above. Electronically signed by Aris Khalil 04/11/2019 1:54 PM) - CONSULTS/PCP/HOSPITALIST Notification #1 *Consult/PCP/Hospitalist*: Dr. Dill Time Discussed: 12:31 Reason/Comments: Dr. Horta consulted with Dr. Dill about patient Consult Disposition: Will see in ED Departure - Departure Date of Disposition Decision: 04/11/19 Time of Disposition Decision: 12:31 DIAGNOSIS: COPD (chronic obstructive pulmonary disease) Qualifiers: COPD type: COPD with acute exacerbation Qualified Code(s): J44.1 - Chronic obstructive pulmonary disease with (acute) exacerbation Pneumonia Qualifiers: Pneumonia type: due to unspecified organism Laterality: unspecified laterality Lung location: unspecified part of lung Qualified Code(s): J18.9 - Pneumonia, unspecified organism Disposition: ADMITTED INPATIENT 09 Certified Medical Emergency: Emergent Condition: Serious - Critical Care Note This patient required my direct & personal management of CC.: No Attestation - Physician/ LEORA Attestation Patient care was provided by Advanced Practice Provider:: No The physician spent face to face time with patient:: Yes Advanced Practice Provider documentation review:: Supervising physician onsite and consulted in the evaluation and care of this patient. The physician did have a face to face encounter with the patient. This chart was documented by the indicated scribe, (Elena Villalobos Scribe) and accurately reflects the services I performed and decisions made by me, Marimar Horta MD, as attested by the provider's signature.
[2019-04-11] MEDS: NORCO-5 PO PRN ×2 (15:47→20:51)
[2019-04-11] MEDS: LEVAQUIN 750 MG/D5W 750 MG/150 ML IVPB IV SCH (15:49)
[2019-04-11] MEDS: DUONEB (A & A) INH PRN (16:51)
[2019-04-11] MEDS ORDERED: VANCOMYCIN 2,000 MG in NS 500 ML IV SCH (17:00)
[2019-04-11] MEDS ORDERED: VANCOMYCIN 2,300 MG in NS 500 ML IV ONE (17:00)
--- NOTE | 2019-04-11 20:18 | HISTORY AND PHYSICAL ---
CHIEF COMPLAINT: Left rib flank pain. HISTORY OF PRESENT ILLNESS: Patient is a 63-year-old male who presented to [facility] ER with sudden onset of shortness of breath, cough, congestion. Notes that he was feeling fine last night when he went to bed, although did have a mild cough, but this is normal for him, had some congestion. States in the middle of the night, he started coughing and felt his rib pop, noted increased shortness of breath and therefore he came to the ER. ALLERGIES: No known drug allergies. MEDICATIONS: I do not have an active medication list, but it appears he is on Norvasc 10, Synthroid and takes hydrocodone and albuterol as needed. PAST MEDICAL HISTORY: Significant for hypertension, hyperlipidemia, recurrent pneumonia, chronic pain, intervertebral disk disease, hypothyroidism. REVIEW OF SYSTEMS: As noted above. Positive cough, congestion, increased work of breathing, increased shortness of breath, dyspnea on exertion. Denies any chest pains but does have pain over his rib and left upper flank area. Denies dysuria. No frequency or urgency. Denies hesitancy, polyuria or polydipsia. Denies any skin rashes, weight loss or weight gain. FAMILY HISTORY: Noncontributory. SOCIAL HISTORY: The patient has a long history of smoking but states he does not currently smoke. Does not drink. PHYSICAL EXAMINATION: VITAL SIGNS: Reviewed. Temperature 98 degrees, pulse 105, respiratory rate 24, BP 133/76, saturation 93% on room air. GENERAL: Patient is awake, alert. He is in mild to moderate respiratory distress. HEENT: Normocephalic. NECK: Supple. CARDIOVASCULAR: Regular rate. No murmurs. CHEST: Decreased breath sounds bilaterally. Positive wheezing. Tenderness over the left lateral rib upper flank area. ABDOMEN: Soft, nondistended, nontender. EXTREMITIES: Moves all extremities. No edema. NEUROLOGIC: No focal neurological changes. SKIN: Warm, dry and no rashes. LABORATORY DATA: pH 7.4, pO2 47 with oxyhemoglobin at 84 on room air, potassium 3.3, glucose 168. CT chest pending. Lactate 1.7. WBC 14. ASSESSMENT: 1. Sepsis with elevated white count, fever, tachycardia, and pneumonia. 2. Pneumonia. 3. Hypoxic respiratory failure. 4. Hypokalemia. PLAN: We are going to admit patient to the hospital and transfer him to [facility], have pulmonology see him. He was just recently admitted to the hospital I believe in January and had to have a thoracentesis. His CT is pending currently. Hopefully that will not need to be performed at this time. We are going to place him on antibiotics, oxygen, replace his electrolytes and follow. cc: Isaiah Dill MD
[2019-04-12] MEDS: NORCO-5 PO PRN ×3 (00:49→09:48)
[2019-04-12 07:42] LABS: MCHC 32.5 g/dL (33-37); MCV 76.8 FL (81-99); MPV 10.2 FL (7.4-10.4); RBC 5.21 XMIL (4.7-6.1); RDW 15.2 % (11.5-14.5); WBC 13.76 X1000 (4.8-10.8)
[2019-04-12 08:10] LABS: AGAP 16; ALB/GLOB RATIO 1.1; ALBUMIN 3.7 g/dL (3.5-5.0); ALKALINE PHOSPHATASE 128 U/L (32-122); BUN 14 mg/dL (8-22); CALCIUM 9.3 mg/dL (8.8-10.2); CHLORIDE 90 mmol/L (98-107); COSMO 267; CREATININE 0.9 mg/dL (0.7-1.2); ESTIMATED GFR > 60; GLUCOSE 140 mg/dL (70-104); GOT 23 U/L (10-34); GPT 29 U/L (10-44); POTASSIUM 3.1 mmol/L (3.5-5.1); SODIUM 132 mmol/L (136-145); TCO2 26 mmol/L (25-35); TOTAL BILIRUBIN 0.99 mg/dL (0.20-1.00)
[2019-04-12] MEDS: DUONEB (A & A) INH PRN ×3 (08:27→16:02)
[2019-04-12] MEDS: POTASSIUM CHLORIDE 20 MEQ/SWI 20 MEQ/100 ML IVPB IV SCH ×2 (11:43→13:36)
[2019-04-12] MEDS ORDERED: MORPHINE IV PRN (12:46)
[2019-04-12] MEDS: NORCO-7.5 PO PRN ×2 (14:30→19:41)
[2019-04-12] MEDS: VANCOMYCIN 2,000 MG in NS 500 ML IV SCH (14:36)
[2019-04-12] MEDS: SOLU-MEDROL IV SCH ×2 (14:37→19:38)
[2019-04-12] MEDS: FLAGYL 500 MG/NS 500 MG/100 ML IVPB IV SCH (18:06)
[2019-04-12] MEDS: DUONEB (A & A) INH SCH ×2 (19:12→23:44)
[2019-04-12] MEDS: MUCOMYST 20% INH SCH (19:13)
[2019-04-12] MEDS: LEVAQUIN 750 MG/D5W 750 MG/150 ML IVPB IV SCH (19:38)
--- NOTE | 2019-04-12 20:00 | PROGRESS NOTE ---
DATE: 04/12/2019 SUBJECTIVE: The patient has no major complaints. OBJECTIVE: Blood pressure is 139/90, heart rate of 94, respiratory rate of 14, temperature 99.4 degrees, 90% on room air.Cardiovascular: Regular rate and rhythm. Pulmonary: Bilateral breath sounds. Clear to auscultation. Gastrointestinal: Soft, nontender, nondistended. Bowel sounds are positive. He still has some wheezing and rhonchi at the bases. LABORATORY DATA: White count 13, hemoglobin and hematocrit 13 and 40, platelets 278,000. Potassium is 3.1. PROBLEM LIST: 1. Pneumonia. He has a multilobar bronchial pneumonia, possibly aspiration type. He is on broad- spectrum antibiotics which include Levaquin and vancomycin. May need to consider Flagyl for aspiration coverage as for anaerobic coverage. He seems to be doing okay from that standpoint. 2. Chronic obstructive pulmonary disease. We will continue breathing treatments. I have added Mucomyst and we will continue to monitor. 3. He also has added steroids today. We will follow closely. Anticipate discharge in the next couple of days pending clinical course. Appreciate Pulmonary's input. cc: Silvestre Soria MD
--- NOTE | 2019-04-12 21:52 | CONSULTATION ---
DATE OF CONSULTATION: 04/12/2019 REQUESTING PROVIDER: Isaiah Dill MD REASON FOR CONSULTATION: Pleural effusion. HISTORY OF PRESENT ILLNESS: This is a 63-year-old male with a medical history of asthma or COPD, recurrent pneumonia, recent large left sided loculated pleural effusion, hypertension, hypothyroidism, hyperlipidemia, gout, chronic pain, and intervertebral disk disease. He presented to the ER yesterday with worsening shortness of breath, productive cough and left-sided rib pain. CT PA in the ER revealed interval substantial decrease in size of the loculated effusion on the left, extensive patchy airspace consolidation with tree-in-bud opacities and bronchial mucus plugging with basilar predominance consistent with pneumonia, possible aspiration pneumonia and no evidence of pulmonary embolism. Clinically, he also shows signs or symptoms of sepsis with elevated white count, fever and tachycardia. His lab revealed acute hypoxic respiratory failure with pO2 47 at room air. He also has hypokalemia with potassium at 3.3. So he has been admitted to the medical floor for further evaluation and management. The patient currently is sitting on the edge of the bed with no acute distress noted. He did show signs of pain on the left lower lobe and left upper quadrant as he moves around or when he coughs. He has a productive cough with thick yellow to greenish sputum during my assessment. He reports chronic productive cough which is getting worse recently. He was previous admitted to our facility on 01/24/2019 to 02/05/2019 with pneumonia and a very large partially loculated pleural effusion on the left. He reports he basically did not feel well after discharge. He reports that he already went to see his family doctor, but he did not receive any medication change. He did state that he has some acid reflux. He reports no fever, chills, chest pain, palpitation, appetite change, weight change, bowel habit change, or urination discomfort. The pain over his rib and left upper flank area apparently has not relieved since discharge. He has been taking [place] 7.5 every 6 hours at home for the pain. He said recently this medicine is not relieving his pain enough. He asked for some other stronger pain medicine such as IV morphine. The patient also asked to do something for his pleural effusion which he believes is the root of his rib pain. I did explain to him that based on the CT angiogram pulmonary from yesterday, his loculated left- sided pleural effusion has been substantially decreased in size, and currently we don't need to do any procedure for it. He got agitated and he stated "I don't trust that report. I just trust how I feel, and I did not feel I am getting better since last time I was discharged." PAST MEDICAL HISTORY: 1. Asthma or COPD. Not on any inhaler at home. 2. Recurrent pneumonia. 3. Recent loculated pleural effusion on the left, has been treated from 01/24/2019 to 02/05/2019 with prolonged antibiotics, s/p thoracentesis on 02/02/2019 with 600ml of dark red, thick blood aspirated. 4. Hypertension. 5. Hypothyroidism. 6. Hyperlipidemia. 7. Gout. 8. Chronic pain. 9. Intervertebral disk disease. PAST SURGICAL HISTORY: None. SOCIAL HISTORY: Patient lives alone. He has supportive sisters who takes care of him. He has no history of cigarette use, but he does occasionally puff a cigar. He drinks beer occasionally, about once every 2 to 3 weeks. He has no illicit drug use. FAMILY HISTORY: Positive for diabetes and small cell lung cancer. ALLERGIES: No known drug allergies. REVIEW OF SYSTEMS: A 10-point review of systems was conducted, and the pertinent is listed within the HPI, otherwise noncontributory. PHYSICAL EXAMINATION: Vital Signs: Temperature 98.6, blood pressure 153/87, pulse 89, respiratory rate 20, oxygen saturation 93% on nasal cannula at 4. General: Well-developed, well- nourished, easy to get answers. No acute distress at this time. Sitting on the edge of the bed. HEENT: Atraumatic, normocephalic. Trachea midline. Mucosa pink and moist. Respiratory: Even and unlabored. Symmetrical excursion. Auscultation revealed mild to moderate bilateral expiratory wheezing. Prolonged expiratory phase and diminished breathing sounds bilaterally. Cardiovascular: Regular rate and rhythm. Gastrointestinal soft, distended. Normoactive bowel sounds in all 4 quadrants with some tenderness on the left upper quadrant. Extremities: No pedal edema. No cyanosis. No clubbing. Dorsalis pedis 2+ bilaterally. Neurologic: Alert and oriented x3. Speech fluent. Follows commands. LABORATORY DATA: White blood cells 13.76, hemoglobin 13.0, hematocrit 40.0, platelets 278,000. Sodium 132, potassium 3.1, chloride 90, carbon dioxide 26, BUN 14, creatinine 0.9, glucose 140. ASSESSMENT: This is a 63-year-old male with a medical history of recurrent pneumonia, recent loculated pleural effusion on the left, hypertension, hypothyroidism, hyperlipidemia, gout, chronic pain, and intervertebral disk disease. He has been admitted to the medical floor since yesterday with acute hypoxic respiratory failure, pneumonia, sepsis and hypokalemia. 1. Acute hypoxic respiratory failure. 2. Bronchiectasis with mucosa plugging and pneumonia, possible aspiration pneumonia. 3. Asthma or COPD with some acute exacerbation. 4. Possible sepsis with leukocytosis, fever and tachycardia. The patient has no more episodes of fever overnight. His heart rate currently dropped to below 100. 5. Hypokalemia. PLAN: 1. Continue supplemental oxygen as needed; consider chest physiotherapy with an oscillatory vest and a flutter device. 2. Will check Carcinoembryonic antigen (CEA). 3. Continue antibiotic and bronchodilators. We will add IV steroid for wheezing. 4. Follow up with sputum culture, urine culture, blood culture. We will check ABG and chest x- ray if indicated. 5. Further recommendations pending hospital course. Thank you for the courtesy of this consult. Dictated by KINDRA Joyce for Mary Lane MD cc: KINDRA Joyce MD [facility]
[2019-04-13] MEDS: SOLU-MEDROL IV SCH ×4 (00:06→21:54)
[2019-04-13] MEDS: FLAGYL 500 MG/NS 500 MG/100 ML IVPB IV SCH ×4 (00:06→18:36)
[2019-04-13] MEDS: NORCO-7.5 PO PRN ×3 (01:59→21:54)
[2019-04-13] MEDS: LOVENOX SUBQ SCH (06:21)
[2019-04-13] MEDS: PRILOSEC PO SCH (06:22)
[2019-04-13] MEDS: DUONEB (A & A) INH SCH ×5 (07:12→22:51)
[2019-04-13] MEDS: MUCOMYST 20% INH SCH ×2 (07:12→19:21)
[2019-04-13 07:55] LABS: BASO# 0.01 X1000 (0.0-0.2); BASO% 0.1 % (0.0-0.8); HEMOGLOBIN 12.4 g/dL (14.0-18.0); IMM GRAN# 0.08 X1000 (0.0-0.04); IMM GRAN% 0.6 % (0.0-0.5); LYMPH# 1.35 X1000 (1.2-3.4); LYMPH% 9.4 % (20.5-51.1); MCH 24.1 PG (27-31); MCV 77.7 FL (81-99); MONO# 0.56 X1000 (0.11-0.59); MONO% 3.9 % (1.7-9.3); MPV 10.6 FL (7.4-10.4); NEUT# 12.42 X1000 (1.4-6.5); PLT 351 X1000 (130-400); RBC 5.15 XMIL (4.7-6.1); WBC 14.42 X1000 (4.8-10.8)
[2019-04-13 08:14] LABS: AGAP 13; BANDS 8 % (0-1); BUN 19 mg/dL (8-22); CHLORIDE 95 mmol/L (98-107); COSMO 281; CREATININE 1.1 mg/dL (0.7-1.2); ESTIMATED GFR > 60; GLUCOSE 186 mg/dL (70-104); LYMPHS 6 % (21-51); POTASSIUM 3.6 mmol/L (3.5-5.1); SEGS 86 % (42-75); SODIUM 137 mmol/L (136-145); TCO2 29 mmol/L (25-35)
[2019-04-13] MEDS: VANCOMYCIN 2,000 MG in NS 500 ML IV SCH (08:18)
[2019-04-13] MEDS: LEVAQUIN 750 MG/D5W 750 MG/150 ML IVPB IV SCH (17:10)
[2019-04-14] MEDS: FLAGYL 500 MG/NS 500 MG/100 ML IVPB IV SCH ×3 (00:41→12:14)
[2019-04-14] MEDS: VANCOMYCIN 1,500 MG in NS 250 ML IV SCH ×2 (02:29→14:33)
--- NOTE | 2019-04-14 03:42 | PROGRESS NOTE ---
DATE: 04/13/2019 SUBJECTIVE: The patient has no major complaints. OBJECTIVE: Blood pressure 155/73, heart rate of 106, respiratory rate of 17, temperature 98.2 degrees, 95% on room air.Cardiovascular: Regular rate and rhythm. Pulmonary: Bilateral breath sounds. He had rhonchi and wheezing, but improved from yesterday. GI: Soft, nontender, nondistended. Bowel sounds are positive. LABORATORY DATA: White count 14, hemoglobin and hematocrit 12 and 40, platelets 351,000. Basic was normal. ASSESSMENT AND PLAN: 1. Multilobar pneumonia, possible aspiration type. He is on Levaquin and vancomycin, and slowly improving with pulmonary toilet. Pulmonary is following, not planning to do any other specific treatments right now. 2. Bronchiectasis. He will need probably a prolonged course of antibiotics. He is on steroids, which I think we could probably wean a little bit today. 3. Disposition: Probably looking at another couple of days of inpatient before transitioning, depending on how his workup is, and I am not entirely sure he will. He may need home oxygen as well. We are going to look into that. cc: Silvestre Soria MD
[2019-04-14] MEDS: LOVENOX SUBQ SCH (05:36)
[2019-04-14] MEDS: SOLU-MEDROL IV SCH ×2 (05:36→12:15)
[2019-04-14] MEDS: NORCO-7.5 PO PRN ×2 (05:41→15:30)
--- NOTE | 2019-04-14 05:50 | Diag Imaging Result Doc PS360 ---
EXAM: CT ABD/PELVIS W/PO AND IV CON HISTORY: abdominal pain TECHNIQUE: CT abdomen and pelvis with intravenous contrast COMPARISON: 12/30/2018 FINDINGS: There is a tiny left pleural effusion. This is similar to the prior exam. There are multiple tiny nodules in the lower lungs. This is more pronounced than on the prior study. There is fatty infiltration of liver. The gallbladder is contracted. Normal spleen, pancreas, and adrenal glands. There is a 4.0 cm left renal cyst. No renal stones. No hydronephrosis. Normal aorta. There is stool throughout the colon. No bowel obstruction. The urinary bladder is distended and is normal. Normal prostate. A small iliac nodes. Tiny fat filled umbilical hernia. IMPRESSION: 1.Multiple tiny nodules/tree-in-bud opacities in the lower lungs which are more pronounced than on the prior abdominal study, but are similar to the chest CT from 04/11/2019. Findings could represent an infectious etiology, including tuberculosis. 2.No change in the tiny left pleural effusion 3.Fatty infiltration of the liver 4.Tiny fat filled umbilical hernia 5.Mild constipation 6.A preliminary report was given at 10:38 PM on 04/13/2019 This exam was performed using automated exposure control, adjustment of mA or kV according to patient size, and/or use of iterative reconstruction technique. Electronically signed by Nabor Gregory 04/14/2019 5:48 AM
[2019-04-14] MEDS: PRILOSEC PO SCH (05:59)
[2019-04-14] MEDS: DUONEB (A & A) INH SCH ×5 (07:18→23:07)
[2019-04-14] MEDS: MUCOMYST 20% INH SCH ×2 (07:18→20:03)
[2019-04-14 08:38] LABS: BASO# 0.01 X1000 (0.0-0.2); HEMOGLOBIN 12.1 g/dL (14.0-18.0); IMM GRAN% 0.9 % (0.0-0.5); LYMPH# 1.15 X1000 (1.2-3.4); LYMPH% 5.4 % (20.5-51.1); MCH 24.2 PG (27-31); MONO# 0.87 X1000 (0.11-0.59); MONO% 4.1 % (1.7-9.3); MPV 10.6 FL (7.4-10.4); NEUT# 19.21 X1000 (1.4-6.5); NEUT% 89.6 % (42.2-75.2); PLT 402 X1000 (130-400); RDW 15.2 % (11.5-14.5); WBC 21.44 X1000 (4.8-10.8)
[2019-04-14 08:41] LABS: AGAP 12; BUN 25 mg/dL (8-22); CALCIUM 9.5 mg/dL (8.8-10.2); CHLORIDE 99 mmol/L (98-107); COSMO 289; CREATININE 1.2 mg/dL (0.7-1.2); ESTIMATED GFR > 60; GLUCOSE 217 mg/dL (70-104); POTASSIUM 3.7 mmol/L (3.5-5.1); SODIUM 139 mmol/L (136-145); TCO2 28 mmol/L (25-35)
[2019-04-14 09:16] LABS: LYMPHS 6 % (21-51); MONO 2 % (1-9); SEGS 90 % (42-75)
[2019-04-14] MEDS: LEVAQUIN 750 MG/D5W 750 MG/150 ML IVPB IV SCH (17:10)
[2019-04-14] MEDS ORDERED: PRILOSEC PO ONE (18:12)
[2019-04-14] MEDS: ZOSYN 4.5 GM in NS 100 ML IV SCH (21:13)
--- NOTE | 2019-04-14 21:52 | PROGRESS NOTE ---
DATE: 04/14/2019 SUBJECTIVE: The patient is does not feel much better, although his cough seems better. He seems like he is coughing a little bit better. His breathing is a bit better. He is still complaining of pain in his side. His CT scan was really unrevealing. OBJECTIVE: Blood pressure is 165/93, heart rate was 96, respiratory rate 18. He is afebrile.Cardiovascular: Regular rate and rhythm. Pulmonary: Bilateral breath sounds, clear to auscultation. His lungs sound to me better. I do not hear as much junk there. GI: Soft, nontender, nondistended. Bowel sounds were positive. LABORATORY DATA: White count is climbing, 21,000, hemoglobin and hematocrit 12 and 39, platelets 402,000. Basic was normal. DIAGNOSTIC DATA: The CT scan yesterday did not show any abdominal pathology, except umbilical hernia and some constipation, but more pronounced tree-in-bud opacities consistent with atypical pneumonitis. Radiology suggested tuberculosis, which is a possibility although he does not have risk factors for that. ASSESSMENT AND PLAN: 1. Atypical interstitial pneumonitis. We are going to continue antibiotics. I have switched him to Zosyn for better anaerobic coverage, because apparently he has severe gastroesophageal reflux disease which is not treated. We will continue to follow. We may have to consider bronchoscopy if he is not improving, but that is at the discretion of Pulmonary. 2. Gastroesophageal reflux disease. We will continue treatment with Prilosec and follow closely. 3. Disposition pending his clinical status, improvement. We will continue to monitor, and wean his steroids a bit as well. cc: Silvestre Soria MD
[2019-04-14] MEDS ORDERED: SOLU-MEDROL IV SCH (22:00)
[2019-04-15] MEDS: ZOSYN 4.5 GM in NS 100 ML IV SCH ×4 (01:20→20:56)
[2019-04-15] MEDS: NORCO-7.5 PO PRN ×2 (06:03→14:20)
[2019-04-15] MEDS: PRILOSEC PO SCH (06:04)
[2019-04-15] MEDS: LOVENOX SUBQ SCH (06:05)
[2019-04-15] MEDS ORDERED: PRILOSEC PO SCH (07:00)
[2019-04-15 08:15] LABS: BASO# 0.02 X1000 (0.0-0.2); BASO% 0.1 % (0.0-0.8); HEMATOCRIT 39.8 % (42.0-52.0); HEMOGLOBIN 12.3 g/dL (14.0-18.0); IMM GRAN% 1.7 % (0.0-0.5); LYMPH# 1.17 X1000 (1.2-3.4); LYMPH% 6.4 % (20.5-51.1); MCH 24.3 PG (27-31); MCHC 30.9 g/dL (33-37); MCV 78.5 FL (81-99); MONO# 1.28 X1000 (0.11-0.59); MONO% 7.1 % (1.7-9.3); MPV 10.5 FL (7.4-10.4); NEUT# 15.38 X1000 (1.4-6.5); NEUT% 84.7 % (42.2-75.2); PLT 426 X1000 (130-400); RBC 5.07 XMIL (4.7-6.1); RDW 15.3 % (11.5-14.5); WBC 18.15 X1000 (4.8-10.8)
[2019-04-15 08:22] LABS: AGAP 13; BUN 22 mg/dL (8-22); CALCIUM 9.5 mg/dL (8.8-10.2); CHLORIDE 97 mmol/L (98-107); COSMO 286; ESTIMATED GFR > 60; GLUCOSE 159 mg/dL (70-104); POTASSIUM 4.2 mmol/L (3.5-5.1); SODIUM 140 mmol/L (136-145); TCO2 30 mmol/L (25-35)
[2019-04-15] MEDS: DUONEB (A & A) INH SCH ×5 (08:26→23:17)
[2019-04-15] MEDS: MUCOMYST 20% INH SCH ×2 (08:27→19:40)
[2019-04-15] MEDS ORDERED: CATAPRES PO PRN (09:40)
[2019-04-15] MEDS: NORVASC PO SCH (09:58)
[2019-04-15] MEDS: NEURONTIN PO SCH ×2 (12:13→17:10)
[2019-04-15] MEDS: ROBITUSSIN-AC PO PRN (17:10)
[2019-04-15] MEDS: LEVAQUIN 750 MG/D5W 750 MG/150 ML IVPB IV SCH (17:15)
--- NOTE | 2019-04-15 18:08 | Diag Imaging Result Doc PS360 ---
EXAM: RIBS UNILAT W/PA CHEST LEFT INDICATION: left sided chest pain TECHNIQUE: 6 views COMPARISON: Chest radiograph dated 04/11/2019 FINDINGS: No discrete rib fracture or intrinsic osseous lesion is appreciated. Bibasilar fine nodular infiltrates appear slightly less prominent than the previous study. There is a trace left pleural effusion that was also seen on a recent CT. No new consolidation is appreciated. There is no evidence of pneumothorax. Cardiac silhouette and central vasculature are unremarkable. IMPRESSION: 1.No discrete rib fracture or intrinsic osseous lesion appreciated. 2.Fine nodular infiltrates at the lung bases appears slightly less prominent. Electronically signed by Aris Khalil 04/15/2019 6:06 PM
--- NOTE | 2019-04-16 00:43 | PULMONOLOGY PROGRESS NOTE ---
DATE: 04/15/2019 SUBJECTIVE: The patient is awake, alert, and conversant. He does have cough with purulent sputum production. No sputum culture has been received in the lab. OBJECTIVE: Vital Signs: The patient has been afebrile for the last 24 hours. Blood pressure 127/69, heart rate 92, respiratory rate 18, oxygen saturation 92% on room air. HEENT: Pupils are equal and reactive. Oropharynx appears clear. Neck: Supple. Chest: Reveals crackles and decreased breath sounds left base. Cardiac: S1-S2. Abdomen: Soft. Extremities: Without edema. LABORATORIES: Chest x-ray reveals slight improvement at the left base. IMPRESSION: A 63-year-old with: 1. Pneumonia. 2. Parapneumonic effusion. 3. Pleuritic chest wall pain. PLAN: 1. Attempt to collect sputum given ongoing leukocytosis. 2. Continue bronchial hygiene. 3. Continue current antibiotic regimen. cc: Parish Chase MD
[2019-04-16] MEDS: ZOSYN 4.5 GM in NS 100 ML IV SCH ×4 (03:21→20:28)
--- NOTE | 2019-04-16 03:34 | PROGRESS NOTE ---
DATE: 04/15/2019 SUBJECTIVE: Patient is complaining of a pulsating mass in his left anterior flank area. He says even it moves, worsening with a cough. OBJECTIVE: Vital Signs: Blood pressure 127/69, heart rate 92, respiratory rate 18, temperature 98 degrees, 92% on room air. Cardiovascular: Regular in rate and rhythm. Pulmonary: Bilateral breath sounds clear to auscultation. GI: Soft, nontender, nondistended. Bowel sounds are positive. On exam he does have a palpable mass, but it feels like a rib. It is kind of a pokey, bony area. It is not a hernia, at least by my assessment. It does move with his torso and it fluctuates with breathing, which is probably what he is referring to is pulsating, but it is just a rib. I do not think it is per se displaced or fractured. Will get plain films and see. CT was really unremarkable. PROBLEM LIST: 1. Pneumonia. We will continue empiric antibiotics. He is on Zosyn and azithromycin. Pulmonary is following. 2. Gastroesophageal reflux disease. We will continue PPI. 3. Pleuritic chest pain. We will work on treating that and follow closely. 4. Hypertension. Continue his regular medications. 5. Gastroesophageal reflux disease. We will continue PPI and follow closely. cc: Silvestre Soria MD
[2019-04-16] MEDS: LOVENOX SUBQ SCH (06:30)
[2019-04-16] MEDS: SYNTHROID PO SCH (06:30)
[2019-04-16] MEDS: PRILOSEC PO SCH (06:30)
[2019-04-16] MEDS: NORCO-7.5 PO PRN ×2 (06:34→13:40)
[2019-04-16 07:45] LABS: BASO# 0.03 X1000 (0.0-0.2); BASO% 0.2 % (0.0-0.8); EOS# 0.06 X1000 (0.0-0.7); EOS% 0.5 % (0.0-10.0); HEMATOCRIT 41.1 % (42.0-52.0); HEMOGLOBIN 12.5 g/dL (14.0-18.0); IMM GRAN% 3.1 % (0.0-0.5); LYMPH# 1.35 X1000 (1.2-3.4); LYMPH% 10.3 % (20.5-51.1); MCH 24.2 PG (27-31); MCHC 30.4 g/dL (33-37); MCV 79.7 FL (81-99); MONO# 1.14 X1000 (0.11-0.59); MONO% 8.7 % (1.7-9.3); MPV 10.2 FL (7.4-10.4); NEUT# 10.07 X1000 (1.4-6.5); NEUT% 77.2 % (42.2-75.2); PLT 380 X1000 (130-400); RBC 5.16 XMIL (4.7-6.1); RDW 15.5 % (11.5-14.5); WBC 13.05 X1000 (4.8-10.8)
[2019-04-16 07:56] LABS: AGAP 10; BUN 19 mg/dL (8-22); CHLORIDE 98 mmol/L (98-107); COSMO 284; CREATININE 1.2 mg/dL (0.7-1.2); ESTIMATED GFR > 60; GLUCOSE 138 mg/dL (70-104); POTASSIUM 3.3 mmol/L (3.5-5.1); SODIUM 140 mmol/L (136-145); TCO2 32 mmol/L (25-35)
[2019-04-16] MEDS: DUONEB (A & A) INH SCH ×5 (08:22→23:28)
[2019-04-16] MEDS: MUCOMYST 20% INH SCH ×2 (08:22→20:19)
[2019-04-16] MEDS: ROBITUSSIN-AC PO PRN (09:24)
[2019-04-16] MEDS: NORVASC PO SCH (09:24)
[2019-04-16] MEDS: SOLU-MEDROL IV SCH (09:25)
[2019-04-16] MEDS: NEURONTIN PO SCH ×3 (09:25→17:00)
[2019-04-16] MEDS ORDERED: KLOR-CON PO ONE (09:55)
[2019-04-16] MEDS: LEVAQUIN 750 MG/D5W 750 MG/150 ML IVPB IV SCH (17:00)
--- NOTE | 2019-04-16 21:21 | GENERAL SURGERY CONSULTATION ---
DATE: 04/16/2019 HISTORY OF PRESENT ILLNESS: This is a 63-year-old with complaints of left midaxillary lower rib pain. I have been asked to consider whether this is a hernia. He has been admitted with exacerbation of his COPD and cough. There is some question as to whether he has broken his rib on the left. PAST MEDICAL HISTORY: Pertinent for hypertension, hyperlipidemia, recurrent pneumonia, chronic pain and hypothyroidism. MEDICATIONS: Listed. ALLERGIES: He has no known drug allergies. REVIEW OF SYSTEMS: Negative in other subsystems. FAMILY HISTORY: Not known. SOCIAL HISTORY: He has a long history of smoking, but currently he denies it. He does not drink alcohol. PHYSICAL EXAMINATION: On physical exam he is afebrile. Heart rate 87, respiratory rate 17, blood pressure 159/78. He has bilateral breath sounds that are decreased in the base, with some inspiratory wheeze. He is tender along the ribcage. The end of his 10th or 11th rib is tender. No hernia is palpated. Abdomen is soft. No peripheral edema. He is awake and alert. LABORATORY DATA: White count is 13,000, hemoglobin 12.5. ASSESSMENT: No evidence of left flank hernia. His pain could be due to a rib fracture. There appears to be an old rib fracture on his CT scan. I see no evidence of acute rib fracture. No operative intervention is indicated. cc: Amanuel Cagle MD
--- NOTE | 2019-04-16 23:42 | PROGRESS NOTE ---
DATE: 04/16/2019 SUBJECTIVE: Patient has no major complaints. OBJECTIVE: Blood pressure is 135/68, heart rate of 83, respiratory rate 18, temperature 98 degrees, 91% on room air.Cardiovascular: Regular rate and rhythm. Pulmonary: Bilateral breath sounds clear to auscultation. GI: Soft, nontender, nondistended. Bowel sounds are positive. LABORATORY DATA: White count 13, hemoglobin and hematocrit 12 and 41, platelets 380,000, potassium is 3.3. PROBLEM LIST: 1. Pneumonia. He is on Zosyn, azithromycin and persistent infiltrate. We will continue pulmonary toilet and follow. Anticipate that we may repeat chest CT . 2. Gastroesophageal reflux disease. We will continue PPI. 3. Pleurisy. I do not think there is any evidence of herniation. It looks like that was just a rib that was irritated. 4. Hypertension is stable on current medications. DISPOSITION: Will continue to follow closely, clinically I do feel like he is doing better though. cc: Silvestre Soria MD
--- NOTE | 2019-04-17 01:25 | PULMONOLOGY PROGRESS NOTE ---
DATE: 04/16/2019 SUBJECTIVE: The patient continues to have cough with sputum production. He has some left-sided chest pain, but it has slightly diminished. He is using his flutter valve and incentive spirometry. OBJECTIVE: Vital Signs: The patient has been afebrile for the last 24 hours, blood pressure 159/78, heart rate 87, oxygen saturation 91% on 3 L per nasal cannula. HEENT: Pupils are equal and reactive. Oropharynx appears clear. Neck: Supple. Chest: Reveals crackles at the left base. Cardiac: S1-S2. Abdomen: Soft without hepatosplenomegaly. Extremities: Without edema. LABORATORIES: Sputum culture was collected this evening. White blood count 13.05, hemoglobin 12.5, platelet count 380,000. Sodium 140, potassium 3.3, chloride 98, bicarbonate 32, BUN 19, creatinine 1.2. IMPRESSION: A 63-year-old with: 1. Pneumonia. 2. Parapneumonic effusion. 3. Pleuritic chest pain. PLAN: 1. Continue current antibiotics pending sputum culture results. 2. Continue bronchial hygiene. 3. Followup chest x-ray tomorrow. cc: Parish Chase MD
[2019-04-17] MEDS: ZOSYN 4.5 GM in NS 100 ML IV SCH ×4 (03:23→19:55)
[2019-04-17] MEDS: NORCO-7.5 PO PRN (04:43)
[2019-04-17] MEDS: LOVENOX SUBQ SCH (06:04)
[2019-04-17] MEDS: SYNTHROID PO SCH (06:04)
[2019-04-17] MEDS: PRILOSEC PO SCH (06:04)
[2019-04-17 07:27] LABS: BASO# 0.03 X1000 (0.0-0.2); BASO% 0.2 % (0.0-0.8); EOS# 0.15 X1000 (0.0-0.7); EOS% 1.2 % (0.0-10.0); HEMATOCRIT 39.6 % (42.0-52.0); HEMOGLOBIN 12.1 g/dL (14.0-18.0); IMM GRAN# 0.57 X1000 (0.0-0.04); IMM GRAN% 4.4 % (0.0-0.5); LYMPH# 1.43 X1000 (1.2-3.4); LYMPH% 11.1 % (20.5-51.1); MCH 24.3 PG (27-31); MCHC 30.6 g/dL (33-37); MCV 79.7 FL (81-99); MPV 10.3 FL (7.4-10.4); NEUT# 9.79 X1000 (1.4-6.5); NEUT% 76.1 % (42.2-75.2); PLT 373 X1000 (130-400); RBC 4.97 XMIL (4.7-6.1); RDW 15.3 % (11.5-14.5); WBC 12.87 X1000 (4.8-10.8)
[2019-04-17 07:50] LABS: AGAP 12; BUN 16 mg/dL (8-22); CHLORIDE 100 mmol/L (98-107); COSMO 295; CREATININE 1.1 mg/dL (0.7-1.2); ESTIMATED GFR > 60; GLUCOSE 293 mg/dL (70-104); POTASSIUM 3.8 mmol/L (3.5-5.1); SODIUM 142 mmol/L (136-145); TCO2 30 mmol/L (25-35)
[2019-04-17] MEDS: MUCOMYST 20% INH SCH ×2 (08:42→19:22)
[2019-04-17] MEDS: DUONEB (A & A) INH SCH ×5 (08:42→23:36)
[2019-04-17] MEDS: NORVASC PO SCH (09:23)
[2019-04-17] MEDS: SOLU-MEDROL IV SCH (09:23)
[2019-04-17] MEDS: NEURONTIN PO SCH ×3 (09:23→17:06)
[2019-04-17 10:31] LABS: BANDS 5 % (0-1); EOS 1 % (1-10); LYMPHS 11 % (21-51); MONO 2 % (1-9); SEGS 72 % (42-75)
--- NOTE | 2019-04-17 11:44 | Diag Imaging Result Doc PS360 ---
EXAM: CHEST-2 VIEWS INDICATION: abnormal exam TECHNIQUE: 2 views COMPARISON: 04/15/2019 FINDINGS: Basilar nodular infiltrates, more prominent on the left, are essentially stable. There is a stable small left effusion. No new consolidation is identified. The cardiac silhouette is stable. IMPRESSION: Grossly stable chest. Electronically signed by Aris Khalil 04/17/2019 11:41 AM
[2019-04-17] MEDS: LIDODERM TOP SCH (17:06)
[2019-04-17] MEDS: LEVAQUIN 750 MG/D5W 750 MG/150 ML IVPB IV SCH (17:06)
[2019-04-17] MEDS: NORCO-10 PO PRN (17:08)
--- NOTE | 2019-04-17 17:20 | PROGRESS NOTE ---
DATE: 04/17/2019 SUBJECTIVE: The patient has no major complaints except his left-sided kind of chest wall pain, which he has all the time but is never controlled, but his breathing seems improved. OBJECTIVE: Blood pressure is 135/64, heart rate is 91, respiratory 17, temperature 97.8 degrees, 93% on room air.Cardiovascular: Regular rate and rhythm. Pulmonary: Bilateral breath sounds clear to auscultation. I do not hear any rhonchi. He does kind to have some wheezing with coughing, but no audible wheezing with regular breathing. GI: Soft, nontender, nondistended. Bowel sounds are positive. LABORATORY DATA: White count is 12, hemoglobin and hematocrit 12 and 39, platelets of 373,000. His basic looks normal. PROBLEM LIST: 1. Pneumonia, interstitial. He is on Zosyn and Levaquin and clinically seems better. I think he is probably close to being able to be discharged. We will discuss with Pulmonary about those options. 2. Severe gastroesophageal reflux disease. We will continue Prilosec. He will need to be discharged on this because he does not have that. 3. Pleurisy. We will continue to help control that. 4. Hypertension is stable. DISPOSITION: Pending clinical status. We will continue to monitor closely. cc: Silvestre Soria MD
--- NOTE | 2019-04-18 01:39 | PULMONOLOGY PROGRESS NOTE ---
DATE: 04/17/2019 SUBJECTIVE: The patient is awake, alert, and conversant. He continues to have some left-sided chest wall pain. He is having some sputum production. OBJECTIVE: Vital Signs: The patient has been afebrile for the last 24 hours. Blood pressure 135/64, heart rate 91, respiratory rate 17, oxygen saturation 93% on room air. HEENT: Pupils are equal and reactive. Oropharynx appears clear. Neck: Supple. Chest: Reveals crackles at the left base. Cardiac: S1-S2. Abdomen: Soft. Extremities: Without edema. LABORATORIES: White blood count 12.87, hemoglobin 12.1, platelet count 373,000. Microbiology: Initial sputum culture reveals no growth. Chest x-ray reveals small pleural effusion with nodular infiltrates at the left base. IMPRESSION: A 63-year-old with pneumonia, pleuritic chest pain, parapneumonic effusion. PLAN: 1. Continue current antibiotic regimen. 2. Continue bronchial hygiene. 3. Dr. Lane to evaluate tomorrow to see if the patient can be discharged with outpatient followup. cc: Parish Chase MD
[2019-04-18] MEDS: ZOSYN 4.5 GM in NS 100 ML IV SCH ×4 (03:50→20:34)
[2019-04-18] MEDS: SYNTHROID PO SCH (06:23)
[2019-04-18] MEDS: LOVENOX SUBQ SCH (06:23)
[2019-04-18] MEDS: PRILOSEC PO SCH (06:23)
[2019-04-18] MEDS: NORCO-10 PO PRN ×2 (06:30→12:19)
[2019-04-18] MEDS: DUONEB (A & A) INH SCH ×5 (07:54→23:33)
[2019-04-18] MEDS: NEURONTIN PO SCH ×3 (08:36→16:59)
[2019-04-18] MEDS: LIDODERM TOP SCH (08:36)
[2019-04-18] MEDS: SOLU-MEDROL IV SCH (08:36)
[2019-04-18] MEDS: NORVASC PO SCH (08:36)
[2019-04-18 08:53] LABS: BASO# 0.18 X1000 (0.0-0.2); BASO% 1.3 % (0.0-0.8); EOS# 0.36 X1000 (0.0-0.7); EOS% 2.7 % (0.0-10.0); HEMATOCRIT 42.4 % (42.0-52.0); IMM GRAN# 0.79 X1000 (0.0-0.04); IMM GRAN% 5.9 % (0.0-0.5); LYMPH% 16.4 % (20.5-51.1); MCH 24.8 PG (27-31); MCHC 30.7 g/dL (33-37); MCV 80.9 FL (81-99); MONO# 0.74 X1000 (0.11-0.59); MONO% 5.5 % (1.7-9.3); MPV 9.9 FL (7.4-10.4); NEUT# 9.14 X1000 (1.4-6.5); NEUT% 68.2 % (42.2-75.2); PLT 377 X1000 (130-400); RBC 5.24 XMIL (4.7-6.1); RDW 15.5 % (11.5-14.5); WBC 13.41 X1000 (4.8-10.8)
[2019-04-18 09:17] LABS: EOS 4 % (1-10); LYMPHS 19 % (21-51); MONO 3 % (1-9); SEGS 71 % (42-75)
[2019-04-18] MEDS: MUCOMYST 20% INH SCH ×2 (11:13→19:27)
[2019-04-18] MEDS: ROBITUSSIN-AC PO PRN ×2 (12:19→23:30)
[2019-04-18] MEDS: LEVAQUIN 750 MG/D5W 750 MG/150 ML IVPB IV SCH (16:59)
[2019-04-18] MEDS ORDERED: PERCOCET-10 PO ONE (22:26)
[2019-04-19] MEDS ORDERED: PERCOCET-10 PO PRN (01:00)
[2019-04-19] MEDS: ZOSYN 4.5 GM in NS 100 ML IV SCH ×3 (02:01→13:07)
[2019-04-19] MEDS: LOVENOX SUBQ SCH (06:31)
[2019-04-19] MEDS: PRILOSEC PO SCH (06:31)
[2019-04-19] MEDS: SYNTHROID PO SCH (06:32)
[2019-04-19 07:36] VITALS: BP 134/75
[2019-04-19] MEDS: DUONEB (A & A) INH SCH ×2 (07:38→11:19)
--- NOTE | 2019-04-19 07:52 | PROGRESS NOTE ---
DATE: 04/18/2019 SUBJECTIVE: He is still complaining of pain in his left lower quadrant from his rib pain, pleuritic chest pain. OBJECTIVE: Blood pressure 144/64, heart rate of 89 with a temperature 98.4 degrees, and 94% on room air.Cardiovascular: Regular rate and rhythm. Pulmonary: Bilateral breath sounds. Clear to auscultation. GI: Soft, nontender, and nondistended. Bowel sounds are positive. Extremities: No clubbing or cyanosis. Lymphatic: No peripheral edema. Neurological: Nonfocal. LABORATORY DATA: White count 13, hemoglobin and hematocrit 13 and 42, and platelets of 377,000. PROBLEM LIST: 1. Pneumonia interstitial. He is on Zosyn and Levaquin. Overall improved. We will continue to follow closely. 2. Gastroesophageal reflux disease. We will continue Prilosec. He likely has recurrent aspiration issues. 3. Pleurisy. We will continue pain control. 4. Disposition: Hopefully home soon in the next 1 to 2 days. cc: Silvestre Soria MD
[2019-04-19 08:06] LABS: AGAP 13; BUN 17 mg/dL (8-22); CALCIUM 9.8 mg/dL (8.8-10.2); CHLORIDE 98 mmol/L (98-107); COSMO 286; CREATININE 1.1 mg/dL (0.7-1.2); ESTIMATED GFR > 60; GLUCOSE 119 mg/dL (70-104); POTASSIUM 4.2 mmol/L (3.5-5.1); SODIUM 142 mmol/L (136-145); TCO2 31 mmol/L (25-35)
[2019-04-19 08:10] LABS: BASO# 0.03 X1000 (0.0-0.2); BASO% 0.2 % (0.0-0.8); EOS# 0.26 X1000 (0.0-0.7); EOS% 2.1 % (0.0-10.0); HEMATOCRIT 43.1 % (42.0-52.0); HEMOGLOBIN 13.1 g/dL (14.0-18.0); IMM GRAN# 0.71 X1000 (0.0-0.04); IMM GRAN% 5.7 % (0.0-0.5); LYMPH# 2.06 X1000 (1.2-3.4); LYMPH% 16.4 % (20.5-51.1); MCH 24.1 PG (27-31); MCHC 30.4 g/dL (33-37); MCV 79.2 FL (81-99); MONO# 0.56 X1000 (0.11-0.59); MONO% 4.5 % (1.7-9.3); MPV 9.9 FL (7.4-10.4); NEUT# 8.93 X1000 (1.4-6.5); NEUT% 71.1 % (42.2-75.2); PLT 442 X1000 (130-400); RBC 5.44 XMIL (4.7-6.1); RDW 15.3 % (11.5-14.5); WBC 12.55 X1000 (4.8-10.8)
[2019-04-19 08:45] LABS: BANDS 1 % (0-1); EOS 1 % (1-10); LYMPHS 20 % (21-51); MONO 4 % (1-9); SEGS 74 % (42-75)
[2019-04-19] MEDS: NEURONTIN PO SCH ×2 (08:50→13:06)
[2019-04-19] MEDS: SOLU-MEDROL IV SCH (08:50)
[2019-04-19] MEDS: NORVASC PO SCH (08:50)
[2019-04-19] MEDS: LIDODERM TOP SCH (08:50)
[2019-04-19] MEDS ORDERED: MEDROL DOSEPAK PO SCH (09:30)
[2019-04-19] MEDS: MUCOMYST 20% INH SCH (11:19)
[2019-04-19] MEDS ORDERED: MEDROL PO SCH (12:00)
[2019-04-19] MEDS ORDERED: FLU VACCINE IM ONE (12:47)
[2019-04-20] MEDS ORDERED: MEDROL PO SCH ×2 (08:00→12:00)
[2019-04-21] MEDS ORDERED: MEDROL PO SCH (08:00)
[2019-04-22] MEDS ORDERED: MEDROL PO SCH (08:00)
[2019-04-23] MEDS ORDERED: MEDROL PO SCH (08:00)
[2019-04-24] MEDS ORDERED: MEDROL PO ONE (09:00)
--- NOTE | 2019-05-11 10:08 | DISCHARGE SUMMARY ---
ADMISSION DATE: 04/11/2019 DISCHARGE DATE: 04/19/2019 DISCHARGE DIAGNOSES: 1. Interstitial pneumonia. 2. Gastroesophageal reflux disease. 3. Pleurisy. CONSULTATIONS: Dr. Chase, pulmonary. PROCEDURES: None. HISTORY AND HOSPITAL COURSE: Briefly, this is a 64-year-old male admitted on the per Dr. Dill for sepsis and pneumonia. He was hypoxic. He was placed on broad-spectrum antibiotics. Dr. Lane was consulted. He had a loculated effusion previously, but that was not an issue this time. He had a very slow clinical improvement. The focus of most of his complaints was pain in his left quadrant. He felt kind of a popping sensation, which looked like a rib. There was no herniation. It was kind indurated and felt like a rib, and he was placed on steroids per Pulmonary. We did CT of his abdomen because he was complaining of pain. He had tree-in-bud opacities that were more pronounced than previously, but there was no hernia in that area or broken ribs or anything to that effect, but it may have been pleurisy related to the pneumonia. We continued antibiotics. He is on Zosyn for anaerobic coverage. Rib films showed no discrete right rib fracture noted. I think we even consulted surgery for questionable hernia, but he did not have a hernia. In any case, we focused on pain control, and he seems to be doing okay. Dr. Cagle felt that there may have been an old rib fracture. In any case, he clinically improved. His repeat chest x-ray on the was stable, and he was felt stable for discharge on the . DISCHARGE MEDICATIONS: Amlodipine 10 daily, gabapentin 600 t.i.d., ProAir, Synthroid 50 daily, doxycycline 100 b.i.d. for another I think we said 10 days, Levaquin 500 daily for 10 days, Medrol Dosepak, and he was given a prescription for Percocet for pain control. DISCHARGE CONDITION: Stable. TIME SPENT: A 32 minute discharge. cc: MD Ashish Hernandez MD Mamoun I. Najjar, MD
== END 2019-04-19 14:13 | disposition home or self-care (01) | DRG 871 ==
LOC: P.ED 09:31 → SUATTDRO 13:18 → 3N 13:18
PROVIDERS: ATTEND Internal Medicine

== ENCOUNTER 2019-06-06 07:51 | Inpatient (IN) ==
[2019-06-06] MEDS ORDERED: ASPIRIN PO ONE (08:03)
[2019-06-06 08:32] LABS: BASO# 0.05 X1000 (0.0-0.2); BASO% 0.6 % (0.0-0.8); EOS# 0.27 X1000 (0.0-0.7); EOS% 3.2 % (0.0-10.0); HEMATOCRIT 41.8 % (42.0-52.0); HEMOGLOBIN 13.1 g/dL (14.0-18.0); IMM GRAN# 0.04 X1000 (0.0-0.04); IMM GRAN% 0.5 % (0.0-0.5); LYMPH# 1.06 X1000 (1.2-3.4); LYMPH% 12.5 % (20.5-51.1); MCH 23.6 PG (27-31); MCHC 31.3 g/dL (33-37); MCV 75.2 FL (81-99); MONO# 0.89 X1000 (0.11-0.59); MONO% 10.5 % (1.7-9.3); MPV 10.1 FL (7.4-10.4); NEUT# 6.14 X1000 (1.4-6.5); NEUT% 72.7 % (42.2-75.2); PLT 247 X1000 (130-400); RBC 5.56 XMIL (4.7-6.1); RDW 17.3 % (11.5-14.5); WBC 8.45 X1000 (4.8-10.8)
--- NOTE | 2019-06-06 08:37 | Diag Imaging Result Doc PS360 ---
CHEST-2 VIEWS - 06/06/2019 INDICATION: sob chest pressure COMPARISON: 04/17/2019 FINDINGS: The lungs are normally expanded and clear. Heart size and mediastinal contours are normal. No pneumothorax or pleural effusion. IMPRESSION: Negative exam. Electronically signed by Ashish Hutson 06/06/2019 8:35 AM
[2019-06-06 08:47] LABS: INR 1.05; PROTIME 14.2 Seconds (11.0-16.0)
[2019-06-06 08:48] LABS: PTT 27.1 Seconds (22.3-41.8)
[2019-06-06 08:54] LABS: AGAP 12; ALBUMIN 4.7 g/dL (3.5-5.0); ALKALINE PHOSPHATASE 110 U/L (32-122); BUN 11 mg/dL (8-22); CALCIUM 9.3 mg/dL (8.8-10.2); CHLORIDE 97 mmol/L (98-107); CK PROFILE 66 U/L (24-204); COSMO 275; CREATININE 1.1 mg/dL (0.7-1.2); ESTIMATED GFR > 60; GLUCOSE 138 mg/dL (70-104); GOT 17 U/L (10-34); GPT 16 U/L (10-44); POTASSIUM 4.1 mmol/L (3.5-5.1); SODIUM 137 mmol/L (136-145); TCO2 28 mmol/L (25-35); TOTAL PROTEIN 7.1 g/dL (6.3-8.3)
[2019-06-06] MEDS ORDERED: PULMICORT INH ONE (09:10)
[2019-06-06] MEDS ORDERED: DUONEB (A & A) INH ONE ×2 (09:10→12:09)
[2019-06-06] MEDS ORDERED: SOLU-MEDROL IV ONE (09:11)
[2019-06-06 09:19] LABS: BE 1.4 mmoll (-3.0-3.0); BLOOD TYPE ARTERIAL; HCO3-(ACT) 25.7 mmoll (20.0-26.0); METHB 0.9 % (0.0-1.5); PCO2(98.6) 49 mmHg (35-45); SAMPLE BLOOD; SAO2 90.2 % (95.0-100.0); pH(98.6) 7.36 (7.35-7.45)
[2019-06-06 09:23] LABS: ALLEN TEST YES; MODALITY ROOM AIR; O2HB 86.6 % (95.0-99.0); PO2(98.6) 49 mmHg (60-100)
--- NOTE | 2019-06-06 09:34 | EKG Report ---
Test Performed on : 06/06/2019 08:14:08 AM Test Reason : sob chest pressure Blood Pressure : / mmHG Vent. Rate : 090 BPM Atrial Rate : 090 BPM P-R Int : 130 ms QRS Dur : 090 ms QT Int : 334 ms P-R-T Axes : 037 017 047 degrees QTc Int : 408 ms Normal sinus rhythm. Nonspecific T wave abnormality Abnormal ECG When compared with ECG of 26-JAN-2019 06:30, Nonspecific T wave abnormality now evident in Lateral leads Unconfirmed Result
[2019-06-06] MEDS ORDERED: ALBUTEROL NEB INH ONE (10:08)
--- NOTE | 2019-06-06 11:20 | PROVIDER DOCUMENTATION ---
This chart was entered by Elena Villalobos Scribe, acting as scribe for Marimar Horta MD. HPI-Respiratory General - General Chief Complaint: SEPSIS ALERT - P Stated Complaint: SOB Time Seen by Provider: 06/06/19 08:48 Source: patient Allergies/Adverse Reactions: Patient Allergies Allergy/AdvReac Type Severity Reaction Status Date / Time No Known Allergies Allergy Verified 04/11/19 10:29 Home Medications: Home Medication List Medication Instructions Recorded Confirmed Last Taken Type Albuterol Sulfate [Proair Hfa] 1 - 2 puff INH Q4-6H PRN PRN 12/30/18 06/06/19 04/10/19 06:00 History 1-2 puff Amlodipine Besylate 10 mg PO DAILY 12/30/18 06/06/19 04/10/19 07:00 History 10mg Gabapentin 600 mg PO TID 12/30/18 06/06/19 04/10/19 07:00 History 600mg Levothyroxine [Synthroid] 50 microgm PO DAILY 01/24/19 06/06/19 04/10/19 06:00 History 50 mcg Hydrocodone/Acetaminophen 1 ea PO BID PRN PRN 06/06/19 06/06/19 Unknown History [Hydrocodone-Acetamin 7.5-300] - History of Present Illness-Resp Nature of Presenting Problem: Patient is a 64 year old male who presents with shortness of breath and wheezing. States symptoms have been present for 2 days. History of pneumonia. P atient's O2 sat was 88% on room air during physical exam. Quality of Pain: reports: tightness Severity in ED: reports: mild Onset/Duration: reports: 2 days ago Timing: reports: still present Associated Symptoms: reports: chest pain/soreness, shortness of breath, wheezing Similar Symptoms Previously?: Yes Recently seen or treated by another doctor?: No Review of Systems - Adult - REVIEW OF SYSTEMS - ADULT Constitutional: reports: no symptoms reported. denies: chills, fever, fatique Eyes: reports: no symptoms reported Ears, Nose, Mouth & Throat: reports: no symptoms reported Cardiovascular: reports: see HPI, chest pain. denies: irregular heart rate, palpitations Respiratory: reports: see HPI, shortness of breath, wheezing. denies: cough Gastrointestinal: reports: no symptoms reported Genitourinary: reports: no symptoms reported Musculoskeletal: reports: no symptoms reported Integumentary: reports: no symptoms reported Neurological: reports: no symptoms reported Psychiatric: reports: no symptoms reported Endocrine: reports: no symptoms reported Hematologic/Lymphatic: reports: no symptoms reported Allergic/Immunologic: reports: no symptoms reported All Other Systems: Reviewed and Negative Past History - Adult - PAST MEDICAL HISTORY-ADULT Review of Records: reports: Old Records Reviewed, Nursing Assessment Review, Medications Reviewed, Social history reviewed & non-contributory. Major Childhood Illnesses: reports: denies history Cardiovascular: reports: HTN, hyperlipidemia Respiratory: reports: COPD, pneumonia Gastrointestinal: reports: denies history Obstetrical/Gynecological: reports: denies history Genitourinary: reports: denies history Musculoskeletal: reports: chronic pain, intervertebral disc disease Neurological: reports: denies history Psychiatric: reports: anxiety Endocrine/Immune: reports: thyroid disorder Other Conditions: reports: denies history - PRIOR SURGERIES/PROCEDURES Surgical/Procedure History: reports: none, reviewed, not pertinent - IMMUNIZATION STATUS Childhood Immunizations: See Nurse Assessment Flu Vaccine: See Nurse Assessment - FAMILY HISTORY Family History: reviewed, not pertinent - SOCIAL HISTORY Smoking: denies Substance Use: alcohol Alcohol Use Frequency: occasionally Living Situation: family Physical Exam-General - PHYSICAL EXAM-ADULT Initial Vital Signs Reviewed: Yes - CONSTITUTIONAL General Appearance: alert, no apparent distress. negative: lethargic - RESPIRATORY Respiratory: chest non-tender, wheezing (bilateral). negative: respiratory distress, accessory muscle use - CARDIOVASCULAR Cardiovascular: regular rate, rhythm, no gallop, no murmur. negative: tachycardia - GASTROINTESTINAL (ABDOMEN) Abdominal Exam: normal bowel sounds, non tender, soft. negative: rigid - MUSCULOSKELETAL Extremity: non-tender, pedal edema (1 + pitting edema bilateral lower extremities.). negative: erythema - SKIN Integumentary: normal color, normal turgor, warm/dry. negative: diaphoresis, pallor - NEUROLOGIC Neurologic: grossly normal. negative: aphasia, facial droop - PSYCHIATRIC Psych/Mental Status: normal mood/affect, oriented x 3. negative: anxious Progress - PLAN OF CARE/RESULTS Progress/Plan/Lab Results: Vital Signs - 8 hr 06/06/19 07:56 06/06/19 09:18 06/06/19 10:39 Temperature 98 F Pulse Rate 95 H 89 83 Respiratory Rate 24 22 24 Blood Pressure 152/96 O2 Sat by Pulse Oximetry 92 L 88 L 94 L 06/06/19 10:54 Temperature Pulse Rate 93 H Respiratory Rate 28 H Blood Pressure 131/74 O2 Sat by Pulse Oximetry 91 L 06/06/19 09:35 - Final Sputum Laboratory Results - last 24 hr 06/06/19 06/06/19 06/06/19 08:00 08:00 08:00 WBC 8.45 RBC 5.56 Hgb 13.1 L Hct 41.8 L MCV 75.2 L MCH 23.6 L MCHC 31.3 L RDW Std Deviation 17.3 H Plt Count 247 MPV 10.1 Immature Gran % (Auto) 0.5 Neut % (Auto) 72.7 Lymph % (Auto) 12.5 L [place] % (Auto) 10.5 H Eos % (Auto) 3.2 Baso % (Auto) 0.6 Immature Gran # (Auto) 0.04 Neut # (Auto) 6.14 Lymph # (Auto) 1.06 L [place] # (Auto) 0.89 H Eos # (Auto) 0.27 Baso # (Auto) 0.05 PT INR PTT (Actin FS) Specimen Type Sample Site pH pCO2 pO2 HCO3 Base Excess Oxyhemoglobin ABG O2 Sat (Calculated) ABG O2 Saturation ABG Carboxyhemoglobin ABG Methemoglobin Fish Test A-a O2 Difference Total Hemoglobin Lactate Blood Gas Modality FiO2 % Sodium 137 Potassium 4.1 Chloride 97 L Carbon Dioxide 28 Anion Gap 12 BUN 11 Creatinine 1.1 Estimated GFR/1.73 m2 > 60 BUN/Creatinine Ratio 10 Glucose 138 H Calculated Osmolality 275 Calcium 9.3 Total Bilirubin 0.40 AST 17 ALT 16 Alkaline Phosphatase 110 Creatine Kinase 66 Troponin T High Sens Mln-G-Osselbjgedd Pept 65 Total Protein 7.1 Albumin 4.7 Globulin 2.0 Albumin/Globulin Ratio 2.0 Plasma Lactate 06/06/19 06/06/19 06/06/19 08:00 08:00 08:00 WBC RBC Hgb Hct MCV MCH MCHC RDW Std Deviation Plt Count MPV Immature Gran % (Auto) Neut % (Auto) Lymph % (Auto) [place] % (Auto) Eos % (Auto) Baso % (Auto) Immature Gran # (Auto) Neut # (Auto) Lymph # (Auto) [place] # (Auto) Eos # (Auto) Baso # (Auto) PT 14.2 INR 1.05 PTT (Actin FS) 27.1 Specimen Type Sample Site pH pCO2 pO2 HCO3 Base Excess Oxyhemoglobin ABG O2 Sat (Calculated) ABG O2 Saturation ABG Carboxyhemoglobin ABG Methemoglobin Fish Test A-a O2 Difference Total Hemoglobin Lactate Blood Gas Modality FiO2 % Sodium Potassium Chloride Carbon Dioxide Anion Gap BUN Creatinine Estimated GFR/1.73 m2 BUN/Creatinine Ratio Glucose Calculated Osmolality Calcium Total Bilirubin AST ALT Alkaline Phosphatase Creatine Kinase Troponin T High Sens 14 Bkd-C-Dkfbakikuan Pept Total Protein Albumin Globulin Albumin/Globulin Ratio Plasma Lactate 1.3 06/06/19 09:11 WBC RBC Hgb Hct MCV MCH MCHC RDW Std Deviation Plt Count MPV Immature Gran % (Auto) Neut % (Auto) Lymph % (Auto) [place] % (Auto) Eos % (Auto) Baso % (Auto) Immature Gran # (Auto) Neut # (Auto) Lymph # (Auto) [place] # (Auto) Eos # (Auto) Baso # (Auto) PT INR PTT (Actin FS) Specimen Type ARTERIAL Sample Site R RADIAL pH 7.36 pCO2 49 H pO2 49 L* HCO3 25.7 Base Excess 1.4 Oxyhemoglobin 86.6 L* ABG O2 Sat (Calculated) 17.0 ABG O2 Saturation 90.2 L ABG Carboxyhemoglobin 3.00 H ABG Methemoglobin 0.9 Fish Test YES A-a O2 Difference 39.0 Total Hemoglobin 14.0 Lactate 0.80 Blood Gas Modality ROOM AIR FiO2 % 21.0 Sodium Potassium Chloride Carbon Dioxide Anion Gap BUN Creatinine Estimated GFR/1.73 m2 BUN/Creatinine Ratio Glucose Calculated Osmolality Calcium Total Bilirubin AST ALT Alkaline Phosphatase Creatine Kinase Troponin T High Sens Fvc-J-Wbbhammudgs Pept Total Protein Albumin Globulin Albumin/Globulin Ratio Plasma Lactate Orders Category Date Time Status Cardiac Monitoring DIRECTED Care 06/06/19 08:03 Active IV Insertion ORDERED Care 06/06/19 08:14 Completed Notify MD of + Sepsis Screen NOW Care 06/06/19 08:14 Active Notify Physician As Ordered Care 06/06/19 08:14 Active Oxygen Therapy- ED Nursing DIRECTED Care 06/06/19 08:03 Active Saline Loc NOW Care 06/06/19 08:03 Active Saline Loc NOW Care 06/06/19 09:11 Active Sepsis [Notify MD/PA/HAND PLUG SHAPER for exam] NOW Care 06/06/19 08:15 Active CHEST-2 VIEWS [RAD] Stat Exams 06/06/19 08:03 Completed ABG [RESP] Routine Lab 06/06/19 09:11 Completed ABG [RESP] Routine Lab 06/06/19 09:11 Ordered BLOOD CULTURE [BLDCUL] Stat Lab 06/06/19 08:26 Ordered CBC WITH ELECTRONIC DIFF [HEME] Stat Lab 06/06/19 08:00 Completed CK PROFILE [SP CHEM] Stat Lab 06/06/19 08:00 Completed COMPREHENSIVE METABOLIC PANEL [CHEM] Stat Lab 06/06/19 08:00 Completed LACTATE, PLASMA [CHEM] Q3H Lab 06/06/19 08:00 Completed LACTATE, PLASMA [CHEM] Stat Lab 06/06/19 11:20 Received LACTATE, PLASMA [CHEM] Stat Lab 06/06/19 14:00 Uncollected PRO B-NATRIURETIC PEPTIDE Stat Lab 06/06/19 08:00 Completed PROTIME WITH INR [COAG] Stat Lab 06/06/19 08:00 Completed PTT [COAG] Stat Lab 06/06/19 08:00 Completed SPUTUM CULTURE WITH GRAM STAIN [RM] Routine Lab 06/06/19 09:35 Results TROPONIN T HIGH SENSITIVITY Stat Lab 06/06/19 08:00 Completed Albuterol 2.5MG/Ipratrop 0.5MG [Duoneb (A & A)] Med 06/06/19 09:10 Discontinued 3 ml INH NOW ONE Albuterol [Albuterol Neb] Med 06/06/19 10:08 Discontinued 2.5 mg INH NOW ONE Aspirin Med 06/06/19 08:03 Discontinued 325 mg PO NOW ONE Azithromycin 500 mg/Ns [Zithromax 500 mg/Ns] Med 06/06/19 11:21 Active 500 mg in 250 ml IV NOW Budesonide [Pulmicort] Med 06/06/19 09:10 Discontinued 0.5 mg INH NOW ONE Methylprednisolone Sod Succ [Solu-Medrol] Med 06/06/19 09:11 Discontinued 125 mg IV NOW ONE Aerosol Treatments Routine Oth 06/06/19 09:10 Active Aerosol Treatments Routine Oth 06/06/19 10:08 Active Aerosol Treatments Stat Ot 06/06/19 09:10 Active Aerosol Treatments Stat Oth 06/06/19 10:08 Active CP/SOB/Palp >45 yrs of Age Stat Oth 06/06/19 08:03 Ordered Pulse Oximetry Stat Ot 06/06/19 09:11 Active EKG [EKG] Stat Ther 06/06/19 08:03 Draft Result Diagrams: 06/06/19 08:00 06/06/19 08:00 - EKG 1 Time of EKG reading by physician:: 08:14 EKG Read and Signed by:: Marimar Horta EKG Interpretation (*Must complete 3 of following elements*): Abnormal Rate: 90 Rhythm: NSR [place]: normal [place] Interval: normal Comments: nonspecific T wave abnormality. - XRAY 1 XRAY Study: Chest Impression: See EMR Report ( CHEST-2 VIEWS - 06/06/2019 INDICATION: sob chest pressure COMPARISON: 04/17/2019 FINDINGS: The lungs are normally expanded and clear. Heart size and mediastinal contours are normal. No pneumothorax or pleural effusion. IMPRESSION: Negative exam. Electronically signed by Ashish Hutson 06/06/2019 8:35 AM 06/06/19 0835 Interpreting Physician: Ashish Hutson MD Dictated Date/Time: 06/06/19 0834 cc: Marimar Horta MD; Ashish Morrison Jr, MD) - CONSULTS/PCP/HOSPITALIST Notification #1 *Consult/PCP/Hospitalist*: Dr. Dill Time Discussed: 11:20 Reason/Comments: Dr. Horta consulted with Dr. Dill about patient. Departure - Departure Date of Disposition Decision: 06/06/19 Time of Disposition Decision: 11:19 DIAGNOSIS: Hypoxia Asthmatic bronchitis Qualifiers: Asthma severity: moderate Asthma persistence: persistent Asthma complication type: with acute exacerbation Qualified Code(s): J45.41 - Moderate persistent asthma with (acute) exacerbation Disposition: ADMITTED INPATIENT 09 Certified Medical Emergency: Emergent Condition: Good Referrals and Follow-Ups: Ashish Morrison Jr, MD [Primary Care Provider] - - Critical Care Note This patient required my direct & personal management of CC.: No Attestation - Physician/ LEORA Attestation Patient care was provided by Advanced Practice Provider:: No The physician spent face to face time with patient:: Yes Advanced Practice Provider documentation review:: Supervising physician onsite and consulted in the evaluation and care of this patient. The physician did have a face to face encounter with the patient. This chart was documented by the indicated scribe, (Elena Villalobos Scribe) and accurately reflects the services I performed and decisions made by me, Marimar Horta MD, as attested by the provider's signature.
[2019-06-06] MEDS ORDERED: ZITHROMAX 500 MG/NS 500 MG/250 ML IVPB IV ONE (11:21)
[2019-06-06] MEDS ORDERED: TYLENOL PO PRN (13:09)
[2019-06-06] MEDS ORDERED: ZOFRAN IV PRN (13:09)
[2019-06-06] MEDS ORDERED: DUONEB (A & A) INH PRN (13:12)
[2019-06-06] MEDS: NS 1,000 ML IV SCH (14:03)
[2019-06-06] MEDS: ROCEPHIN 1 GM in NS 50 ML IV SCH (14:03)
[2019-06-06] MEDS ORDERED: PROTONIX PO ONE (14:12)
[2019-06-06] MEDS: DOXYCYCLINE 100 MG in NS 250 ML IV SCH (14:45)
--- NOTE | 2019-06-06 15:15 | HISTORY AND PHYSICAL ---
PRIMARY CARE PROVIDER: Dr. Morrison. CHIEF COMPLAINT: Wheezing with fever. HISTORY OF PRESENT ILLNESS: Mr. Nehemias Maxwell is a 64-year-old male with a medical history of recently recurrent pneumonia, also without left rib fracture but does have a cracking sensation to it when you palpate as if it was fractured so we may get an x-ray of that but there is no obvious pneumothorax. However he states he has been coughing for at least a week. He has had green white phlegm, fever and then for the last 3 days he has had wheezing. He denies ever smoking or ever having a history of asthma or COPD so will admit him and continue with a full evaluation and workup. PAST MEDICAL HISTORY: 1. Recurrent pneumonia. 2. Hyperlipidemia. 3. Hypertension. 4. Chronic pain. 5. Intervertebral disk disease. 6. Hypothyroidism. SURGICAL HISTORY: None. SOCIAL HISTORY: Denies tobacco, alcohol or illicit drug use. He lives at home alone, he is not , does not work. FAMILY HISTORY: No medical conditions in his parents. ALLERGIES: No known drug allergies. HOME MEDICATIONS: 1. Amlodipine besylate 10 mg p.o. daily. 2. Neurontin 600 mg p.o. t.i.d. 3. [place] twice a day p.r.n. 4. Albuterol inhaled every 4 hours p.r.n. 5. Synthroid 50 mcg p.o. daily. REVIEW OF SYSTEMS: Fourteen point review of systems are complete all are negative for those mentioned above HPI. Does complain of pain in the left rib. PHYSICAL EXAM: VITAL SIGNS: Temperature 98 degrees, heart rate 83, respiratory rate 24, blood pressure 131/74, O2 saturation 94% on 2 L nasal cannula. GENERAL: Mr. Nehemias Maxwell is a 64-year-old male he is in no acute distress is able to answer questions appropriately. HEENT: Atraumatic, normocephalic. Pupils equal, round, reactive to light. Extraocular movements intact. Mucous membranes moist. NECK: Trachea midline. CARDIOVASCULAR: S1, S2. Regular rate and rhythm. No rubs, gallops, murmurs. No lower extremity edema, +2 dorsalis and radial pulses, negative for JVD or carotid bruits. PULMONARY: Expiratory wheezes noted throughout they are also audible without stethoscope. He has mild accessory muscle use, mild work of breathing is tolerating 2 L nasal cannula . GI: Soft, round, rib popping noted with protrusion of the rib in the left rib cage area in the left upper abdominal location but positive bowel sounds soft, nontender otherwise. EXTREMITIES: Moves all extremities equally and full range of motion . NEURO: A and O x3 follows commands, sensory is intact. SKIN: Warm, dry, intact. LAB DATA: White blood cells 8000, hemoglobin 13, hematocrit 41, platelet count 247,000, INR 1.05, PTT is 27.1. ABGs on room air pH 7.36, pCO2 of 49, PO2 49, bicarb 25, base excess 1.4, saturation 86%, lactate 0.8. Sodium 137, potassium 4.1, BUN 11, creatinine is 1.1, glucose 138, calcium 9.3, bilirubin 0.40, AST 17, ALT 16, CK 66, troponin 14, ProBNP is 65, albumin 4.7, serum lactate 1.3 and 1.3. IMAGING: Chest x-ray negative for any acute findings. EKG normal sinus rhythm, rate 90. ASSESSMENT/PLAN: 1. Acute hypoxemic hypercarbic respiratory failure requiring oxygen therapy with wheezing. Will do steroids, antibiotics, IV fluids, oxygen, pulmonary toilet. 2. Possibly acute bronchitis, he is on antibiotic therapy. He did have some complaints of green phlegm in the beginning that resolved and turned white. No obvious fever here but there is reported fever. Will add proton pump inhibitor in case there is some reflux going on causing the agitation of the lungs. 3. Recurrent pneumonia, no obvious pneumonia here but he is going to be on antibiotics. 4. Hypothyroidism, continue Synthroid. 5. Chronic pain, continue home medications. 6. Hyperlipidemia, continue statin. 7. Hypertension. Continue amlodipine. 8. Deep venous thrombosis prophylaxis SCD. Dictated by KINDRA Aguilar for Isaiah Dill MD cc: KINDRA Aguilar MD
[2019-06-06] MEDS: DUONEB (A & A) INH SCH ×3 (15:30→23:01)
[2019-06-06] MEDS: NEURONTIN PO SCH (17:08)
[2019-06-06] MEDS: NORCO-7.5 PO PRN (17:10)
[2019-06-06 19:51] LABS: AGAP 13; ALBUMIN 4.4 g/dL (3.5-5.0); ALKALINE PHOSPHATASE 98 U/L (32-122); BUN 12 mg/dL (8-22); CALCIUM 9.3 mg/dL (8.8-10.2); CHLORIDE 99 mmol/L (98-107); COSMO 284; CREATININE 1.2 mg/dL (0.7-1.2); ESTIMATED GFR > 60; GLUCOSE 320 mg/dL (70-104); GOT 15 U/L (10-34); GPT 15 U/L (10-44); POTASSIUM 4.6 mmol/L (3.5-5.1); SODIUM 136 mmol/L (136-145); TCO2 24 mmol/L (25-35); TOTAL PROTEIN 7.3 g/dL (6.3-8.3)
--- NOTE | 2019-06-06 19:51 | HISTORY AND PHYSICAL ---
ADDENDUM: The patient was seen and examined by myself. Full note dictated and discussed with nurse practitioner. Patient presented to the hospital with increased cough, congestion, and shortness of breath. Does have a history of pneumonia as well as COPD. He has 1+ pitting edema in his bilateral lower extremities. Blood pressure is elevated. Oxygen saturation was low. We are going to admit the patient to the hospital, place him on antibiotics, continue him on oxygen and we will follow. cc: Isaiah Dill MD
[2019-06-07] MEDS: NORCO-7.5 PO PRN ×3 (00:11→17:29)
[2019-06-07] MEDS: DOXYCYCLINE 100 MG in NS 250 ML IV SCH ×2 (02:18→14:04)
[2019-06-07] MEDS: DUONEB (A & A) INH SCH ×6 (03:13→23:05)
[2019-06-07] MEDS: NS 1,000 ML IV SCH ×2 (06:09→21:20)
[2019-06-07] MEDS: SYNTHROID PO SCH (06:09)
[2019-06-07] MEDS: PROTONIX PO SCH (06:09)
[2019-06-07] MEDS ORDERED: LIORESAL PO PRN (06:35)
[2019-06-07] MEDS ORDERED: SOLU-MEDROL IV SCH (06:45)
[2019-06-07 07:05] LABS: HEMATOCRIT 38.9 % (42.0-52.0); MCH 23.4 PG (27-31); MCHC 30.8 g/dL (33-37); MCV 75.8 FL (81-99); MPV 10.2 FL (7.4-10.4); RBC 5.13 XMIL (4.7-6.1); RDW 17.1 % (11.5-14.5); WBC 7.1 X1000 (4.8-10.8)
[2019-06-07] MEDS ORDERED: TESSALON PO PRN (08:22)
[2019-06-07] MEDS: NEURONTIN PO SCH ×3 (08:48→17:29)
[2019-06-07] MEDS: SOLU-MEDROL IV SCH ×2 (08:48→17:25)
[2019-06-07] MEDS: HUMALOG (PARKWAY) SUBQ SCH ×4 (08:48→22:11)
[2019-06-07] MEDS: NORVASC PO SCH (08:49)
[2019-06-07] MEDS: ROBITUSSIN-DM PO PRN (09:00)
[2019-06-07] MEDS ORDERED: NEURONTIN PO SCH (09:00)
[2019-06-07] MEDS: ROCEPHIN 1 GM in NS 50 ML IV SCH (12:48)
--- NOTE | 2019-06-07 19:06 | PROGRESS NOTE ---
DATE: 06/07/2019 SUBJECTIVE: Patient notes that he is feeling okay. Still having significant wheezing. Denies any chest pains or palpitations. Still fatigued and tired. Still having difficulty ambulating due to his shortness of breath. PHYSICAL EXAMINATION: Vital signs: Temperature 98 degrees, pulse 89, respiratory 20, BP 133/65. General: Patient is in mild respiratory distress, sitting on the bed. HEENT: Normocephalic. Neck: Supple. Cardiovascular: Regular rate. Chest: Decreased breath sounds bilaterally. Positive harsh wheezing. Abdomen: Soft, nondistended. Extremities: Moves all extremities. Neurologic: No changes. ASSESSMENT: 1. Hyperglycemia, in a patient with no previous history of diabetes, but he is on Solu-Medrol. 2. Acute hypoxic and hypercapnic respiratory failure. 3. Chronic obstructive pulmonary disease with exacerbation. 4. History of recurrent pneumonia, although most recent chest x-ray did not demonstrate pneumonia. 5. Chronic pain. 6. Hyperlipidemia. PLAN: We are going to continue doxycycline, Rocephin, Solu-Medrol, oxygen, breathing treatments, and will follow. cc: Isaiah Dill MD
[2019-06-08] MEDS: DOXYCYCLINE 100 MG in NS 250 ML IV SCH (01:09)
[2019-06-08] MEDS: SOLU-MEDROL IV SCH ×3 (01:14→18:28)
[2019-06-08] MEDS: DUONEB (A & A) INH SCH ×5 (02:56→19:47)
[2019-06-08] MEDS: NORCO-7.5 PO PRN ×3 (04:12→22:40)
[2019-06-08] MEDS: PROTONIX PO SCH ×2 (04:13→06:20)
[2019-06-08] MEDS: ROBITUSSIN-DM PO PRN (04:13)
[2019-06-08] MEDS: SYNTHROID PO SCH ×2 (04:13→06:20)
[2019-06-08] MEDS: HUMALOG (PARKWAY) SUBQ SCH ×4 (06:18→22:34)
[2019-06-08] MEDS: NEURONTIN PO SCH ×3 (09:18→18:28)
[2019-06-08] MEDS: NORVASC PO SCH (09:18)
[2019-06-08] MEDS: ROBITUSSIN-AC PO PRN (10:11)
[2019-06-08] MEDS: MUCOMYST 20% INH SCH ×2 (10:49→19:47)
[2019-06-08] MEDS: DOXYCYCLINE PO SCH (13:22)
[2019-06-08] MEDS: ROCEPHIN 1 GM in NS 50 ML IV SCH (13:23)
[2019-06-08] MEDS: NS 1,000 ML IV SCH (15:19)
--- NOTE | 2019-06-08 20:56 | PROGRESS NOTE ---
DATE: 06/08/2019 SUBJECTIVE: Patient notes he is still having significant cough, still wheezing, still short of breath, still having grave difficulty ambulating to the restroom and back without having to stop due to increased wheezing and shortness of breath. OBJECTIVE: Vital signs: Temperature 97.7 degrees, pulse 86, respiratory rate 18, BP 172/90. General: Patient is pleasant. He is in moderate respiratory distress after ambulating. It improves to mild when he is sitting still. HEENT: Normocephalic. Neck: Supple. Cardiovascular: Regular rate. No murmurs. Chest: Decreased breath sounds, positive harsh wheezing, although actually improved from yesterday. He no longer has audible wheezing. Decreased breath sounds bilaterally. Poor air movement bilaterally but equal. Abdomen: Soft, obese, nondistended. Extremities: Moves all extremities. Neurologic: No changes. ASSESSMENT: 1. Chronic obstructive pulmonary disease with exacerbation. 2. Acute hypoxic respiratory failure. 3. Recurrent pneumonia. 4. Hypothyroidism. 5. Chronic pain. 6. Hyperlipidemia. 7. Hyperglycemia likely secondary to Solu-Medrol, although we have decreased it to 40 IV q.8. We are going to check an A1c in the a.m. PLAN: Continue doxycycline, change to p.o., continue Rocephin, Solu-Medrol and we will follow. cc: Isaiah Dill MD
[2019-06-09] MEDS: DUONEB (A & A) INH SCH ×7 (00:17→23:04)
[2019-06-09] MEDS: SOLU-MEDROL IV SCH ×3 (00:43→16:50)
[2019-06-09] MEDS: DOXYCYCLINE PO SCH ×2 (00:43→13:50)
[2019-06-09] MEDS: ROBITUSSIN-AC PO PRN (00:51)
[2019-06-09] MEDS: NS 1,000 ML IV SCH ×2 (04:41→14:58)
[2019-06-09] MEDS: HUMALOG (PARKWAY) SUBQ SCH ×4 (06:19→22:42)
[2019-06-09] MEDS: SYNTHROID PO SCH (06:21)
[2019-06-09] MEDS: PROTONIX PO SCH (06:23)
[2019-06-09 07:06] LABS: HEMATOCRIT 41.8 % (42.0-52.0); HEMOGLOBIN 12.5 g/dL (14.0-18.0); MCH 22.9 PG (27-31); MCHC 29.9 g/dL (33-37); MCV 76.7 FL (81-99); MPV 10.4 FL (7.4-10.4); RBC 5.45 XMIL (4.7-6.1); RDW 17.4 % (11.5-14.5); WBC 10.37 X1000 (4.8-10.8)
[2019-06-09 07:17] LABS: AGAP 16; ALBUMIN 4.2 g/dL (3.5-5.0); ALKALINE PHOSPHATASE 99 U/L (32-122); BUN 14 mg/dL (8-22); CALCIUM 9.7 mg/dL (8.8-10.2); CHLORIDE 104 mmol/L (98-107); COSMO 296; CREATININE 0.8 mg/dL (0.7-1.2); ESTIMATED GFR > 60; GLUCOSE 196 mg/dL (70-104); GOT 12 U/L (10-34); GPT 15 U/L (10-44); MAGNESIUM 1.9 mg/dL (1.5-2.7); POTASSIUM 3.7 mmol/L (3.5-5.1); SODIUM 146 mmol/L (136-145); TCO2 26 mmol/L (25-35); TOTAL BILIRUBIN < 0.15 mg/dL (0.20-1.00)
--- NOTE | 2019-06-09 07:26 | Diag Imaging Result Doc PS360 ---
EXAM: CHEST-2 VIEWS HISTORY: hypoxia TECHNIQUE: Two views COMPARISON: 06/06/2019 FINDINGS: The lungs are well expanded. The heart is not enlarged. The vessels are not distended. There are small basilar infiltrates. No pleural effusions. IMPRESSION: Small basilar infiltrates Electronically signed by Nabor Gregory 06/09/2019 7:24 AM
[2019-06-09] MEDS: MUCOMYST 20% INH SCH ×2 (07:44→19:48)
[2019-06-09 08:06] LABS: HEMOGLOBIN A1C 6.9 % (4.8-6.0)
[2019-06-09] MEDS: NEURONTIN PO SCH ×3 (08:30→16:50)
[2019-06-09] MEDS: NORVASC PO SCH (08:31)
[2019-06-09] MEDS: NORCO-7.5 PO PRN ×2 (08:31→17:41)
[2019-06-09] MEDS: ROCEPHIN 1 GM in NS 50 ML IV SCH (14:58)
--- NOTE | 2019-06-09 20:13 | PROGRESS NOTE ---
DATE: 06/09/2019 SUBJECTIVE: Patient notes that he is feeling a little bit better although he still gets very winded, short of breath, still has significant coughing with any movement. While he is sitting down breathing softly, states that he can feel a little bit better. EXAMINATION: Temp 97.7, pulse 84, respiratory rate 18, BP 174/99.General: Patient is awake, alert, currently in no distress. HEENT: Normocephalic. Neck: Supple. Cardiovascular: Regular rate. Chest: Positive wheezing. Poor air movement but improved. Abdomen: Soft, nondistended. Extremities: Moves all extremities. ASSESSMENT: 1. Acute hypercapnic and hypoxic respiratory failure. 2. Chronic obstructive pulmonary disease with exacerbation. 3. Recurrent pneumonia. As expected, his chest x-ray now shows small basilar infiltrates. He has been on antibiotics for the past 2 days for presumed pneumonia. 4. Hypothyroidism. 5. Chronic pain. 6. Hyperglycemia in a patient with no previous history of diabetes with an A1c at 6.9, so he certainly should be considered diabetic at this point. PLAN: We will continue patient in the hospital, continue oxygen breathing treatments. Continue diabetic diet as well as sliding scale insulin, antibiotics, and will follow. cc: Isaiah Dill MD
[2019-06-10] MEDS: DOXYCYCLINE PO SCH ×2 (02:12→12:43)
[2019-06-10] MEDS: SOLU-MEDROL IV SCH ×3 (02:12→17:13)
[2019-06-10] MEDS: NS 1,000 ML IV SCH ×3 (02:35→16:08)
[2019-06-10] MEDS: DUONEB (A & A) INH SCH ×6 (03:32→22:32)
[2019-06-10] MEDS: HUMALOG (PARKWAY) SUBQ SCH ×4 (07:01→22:00)
[2019-06-10] MEDS: PROTONIX PO SCH (07:01)
[2019-06-10] MEDS: SYNTHROID PO SCH (07:01)
[2019-06-10] MEDS: MUCOMYST 20% INH SCH ×2 (07:50→22:32)
[2019-06-10] MEDS: NEURONTIN PO SCH ×3 (08:40→17:16)
[2019-06-10] MEDS: NORVASC PO SCH (08:41)
[2019-06-10] MEDS: NORCO-7.5 PO PRN (08:41)
[2019-06-10] MEDS: ROBITUSSIN-AC PO PRN (08:42)
[2019-06-10] MEDS: ROCEPHIN 1 GM in NS 50 ML IV SCH (12:43)
--- NOTE | 2019-06-10 20:49 | PROGRESS NOTE ---
DATE: 06/10/2019 SUBJECTIVE: Patient notes that when he is sitting still his breathing is improving although he is still having marked shortness of breath with ambulation. PHYSICAL EXAMINATION: Vital Signs: Reviewed, temperature 97.7 degrees, pulse 71, respiratory 18, BP 157/77. General: Patient is in no respiratory distress while he is sitting down. However he is in mild to moderate distress with any ambulation. HEENT: Normocephalic. Neck: Supple. CV: Regular rate. Chest: Improved. Minimal wheezing until he starts talking and coughing and then has moderate wheezing, mildly labored after talking. Abdomen: Soft, obese, nondistended. Extremities: Moves all extremities. ASSESSMENT: 1. Bibasilar pneumonia. 2. Chronic obstructive pulmonary disease with exacerbation. 3. Acute hypoxic respiratory failure. 4. Hypothyroidism. 5. Chronic pain. 6. Hypertension. PLAN: Will continue patient in the hospital, continue to follow, further orders as needed. cc: Isaiah Dill MD
[2019-06-11] MEDS: DOXYCYCLINE PO SCH ×2 (00:55→12:51)
[2019-06-11] MEDS: SOLU-MEDROL IV SCH ×3 (00:55→17:40)
[2019-06-11] MEDS: DUONEB (A & A) INH SCH ×6 (03:38→23:17)
[2019-06-11] MEDS: NS 1,000 ML IV SCH (04:00)
[2019-06-11] MEDS: SYNTHROID PO SCH ×2 (05:55→07:48)
[2019-06-11] MEDS: PROTONIX PO SCH (06:31)
[2019-06-11] MEDS: NORCO-7.5 PO PRN ×2 (06:31→17:40)
[2019-06-11] MEDS: HUMALOG (PARKWAY) SUBQ SCH ×4 (07:50→22:35)
[2019-06-11] MEDS: MUCOMYST 20% INH SCH ×2 (08:18→19:46)
[2019-06-11] MEDS: NEURONTIN PO SCH ×3 (08:34→17:40)
[2019-06-11] MEDS: NORVASC PO SCH (08:35)
[2019-06-11] MEDS: ROCEPHIN 1 GM in NS 50 ML IV SCH (12:51)
--- NOTE | 2019-06-11 14:43 | PROGRESS NOTE ---
DATE: 06/11/2019 SUBJECTIVE: The patient overall is feeling better. Still having cough, congestion. Still having shortness of breath, dyspnea on exertion. PHYSICAL EXAMINATION: Vital signs: Temperature 97.8 degrees, pulse 101, respiratory rate 18, blood pressure 156/91. HEENT: Normocephalic. Neck: Supple. Cardiovascular: Mild tachycardia. No murmurs. Chest: More clear although still positive wheezing, not as harsh as it was. There is better air movement. Abdomen: Soft, nondistended. Extremities: Moves all extremities. ASSESSMENT AND PLAN: 1. Bibasilar pneumonia. Continue antibiotics. 2. Acute hypoxic respiratory failure, improving. 3. Acute hypercapnic respiratory failure, improving. 4. Chronic obstructive pulmonary disease with exacerbation, improving. 5. Hypothyroidism. 6. Chronic pain. 7. Hypertension, stable. 8. Diabetes with mild hyperglycemia. A1c 6.9. We will continue sliding scale insulin. cc: Isaiah Dill MD
[2019-06-12] MEDS: SOLU-MEDROL IV SCH ×2 (01:05→20:57)
[2019-06-12] MEDS: DOXYCYCLINE PO SCH ×2 (01:05→13:25)
[2019-06-12] MEDS: NORCO-7.5 PO PRN ×3 (01:19→18:56)
[2019-06-12] MEDS: DUONEB (A & A) INH SCH ×6 (03:44→23:29)
[2019-06-12 05:48] LABS: HEMATOCRIT 39.1 % (42.0-52.0); HEMOGLOBIN 12.2 g/dL (14.0-18.0); MCH 23.1 PG (27-31); MCHC 31.2 g/dL (33-37); MCV 74.2 FL (81-99); MPV 10.3 FL (7.4-10.4); RBC 5.27 XMIL (4.7-6.1); RDW 16.3 % (11.5-14.5); WBC 11.6 X1000 (4.8-10.8)
[2019-06-12 06:05] LABS: AGAP 14; ALBUMIN 3.8 g/dL (3.5-5.0); ALKALINE PHOSPHATASE 89 U/L (32-122); BUN 22 mg/dL (8-22); CALCIUM 9.3 mg/dL (8.8-10.2); CHLORIDE 101 mmol/L (98-107); COSMO 295; CREATININE 0.9 mg/dL (0.7-1.2); ESTIMATED GFR > 60; GLUCOSE 214 mg/dL (70-104); GOT 14 U/L (10-34); GPT 25 U/L (10-44); MAGNESIUM 2.1 mg/dL (1.5-2.7); POTASSIUM 3.6 mmol/L (3.5-5.1); SODIUM 143 mmol/L (136-145); TCO2 28 mmol/L (25-35); TOTAL PROTEIN 6.1 g/dL (6.3-8.3)
[2019-06-12] MEDS: SYNTHROID PO SCH (07:02)
[2019-06-12] MEDS: PROTONIX PO SCH (07:02)
[2019-06-12] MEDS: HUMALOG (PARKWAY) SUBQ SCH ×4 (07:03→21:03)
--- NOTE | 2019-06-12 07:38 | Diag Imaging Result Doc PS360 ---
EXAM: CHEST-2 VIEWS 06/12/2019 HISTORY: hypoxia TECHNIQUE: Two views the chest COMMENT: The basilar opacities previously demonstrated at the left hemithorax on 06/09/2019 have diminished slightly. No additional abnormalities are present. IMPRESSION: Improvement of left lower lobe atelectasis. Electronically signed by Derek Boggs 06/12/2019 7:35 AM
[2019-06-12] MEDS: MUCOMYST 20% INH SCH ×2 (07:57→20:22)
[2019-06-12] MEDS ORDERED: SOLU-MEDROL IV SCH (09:00)
[2019-06-12] MEDS: NORVASC PO SCH (09:14)
[2019-06-12] MEDS: NEURONTIN PO SCH ×3 (09:14→17:37)
[2019-06-12] MEDS: ROCEPHIN 1 GM in NS 50 ML IV SCH (13:25)
--- NOTE | 2019-06-12 13:39 | PROGRESS NOTE ---
DATE: 06/12/2019 SUBJECTIVE: The patient notes that his left ribs hurt when he coughs and takes a deep breath. Notes that he is starting to breathe better. He is able to ambulate a little bit better. PHYSICAL EXAMINATION: Vital Signs: Temperature 97.8, pulse 96, respiratory rate 18, BP 163/91. General: The patient is awake, pleasant. He is in mild respiratory distress. Continues to improve. HEENT: Normocephalic. Neck: Supple. Cardiovascular: Regular rate. Chest: Decreased, but equal. Minimal wheezing, which is improved from yesterday. No crackles. Positive rhonchi. Abdomen: Soft, obese, tender in the left upper quadrant/flank region over his ribs. Extremities: Moves all extremities. No edema. Neurologic: No changes. ASSESSMENT: 1. Chronic obstructive pulmonary disease with exacerbation. 2. Bibasilar pneumonia. Most recent chest x-ray is improving. 3. Acute hypoxic respiratory failure, improved. 4. Hypernatremia, resolved. 5. Leukocytosis. 6. Diabetes with an A1c of 6.9, diet-controlled. PLAN: Will continue the patient in the hospital. Wean steroids. Continue breathing treatments, antibiotics. Continue to ambulate. Hopefully home over the next day or two. cc: Isaiah Dill MD
[2019-06-13] MEDS: DOXYCYCLINE PO SCH (00:20)
[2019-06-13] MEDS: ROBITUSSIN-AC PO PRN (00:22)
[2019-06-13] MEDS: DUONEB (A & A) INH SCH ×2 (03:12→07:55)
[2019-06-13 06:12] VITALS: BP 158/92
[2019-06-13] MEDS: NORCO-7.5 PO PRN (06:28)
[2019-06-13] MEDS: SYNTHROID PO SCH (06:28)
[2019-06-13] MEDS: PROTONIX PO SCH (06:28)
[2019-06-13] MEDS: HUMALOG (PARKWAY) SUBQ SCH (06:28)
[2019-06-13] MEDS: MUCOMYST 20% INH SCH (07:55)
[2019-06-13] MEDS: NEURONTIN PO SCH (09:21)
[2019-06-13] MEDS: NORVASC PO SCH (09:21)
[2019-06-13] MEDS: SOLU-MEDROL IV SCH (11:43)
--- NOTE | 2019-06-14 14:47 | DISCHARGE SUMMARY ---
ADMISSION DATE: 06/06/2019 DISCHARGE DATE: 06/13/2019 ADDENDUM: Patient seen and examined by myself. Full note dictated and discussed with nurse practitioner. On discharge, patient is much improved. He is able to ambulate with minimal wheezing. Upon initial presentation to the hospital he had harsh audible wheezing with any ambulation and talking. He still has wheezing bilaterally on discharge but again, markedly improved. His left-sided pain still hurts when he coughs or takes a deep breath. He was noted to have bibasilar pneumonia and was placed on antibiotics while he was in the hospital. Thankfully, he is improved. He has weaned off his steroids. We are going to discharge him home on breathing treatments and antibiotics. Discussed with him that he does have diabetes with an A1c at 6.9 and he will need to follow up outpatient and continue to follow this; currently diet controlled. cc: Isaiah Dill MD
--- NOTE | 2019-06-14 15:08 | DISCHARGE SUMMARY ---
ADMISSION DATE: 06/06/2019 DISCHARGE DATE: 06/13/2019 ADMITTING DIAGNOSES: 1. Acute hypoxic, hypercapnic respiratory failure. 2. Possibly acute bronchitis. 3. Recurrent pneumonia with possible pneumonia. 4. Hypothyroidism, chronic. 5. Chronic pain. 6. Chronic lipidemia. 7. Chronic hypertension. DISCHARGE DIAGNOSES: 1. Chronic obstructive pulmonary disease with acute exacerbation. 2. Bibasilar pneumonia. 3. Acute hypoxic respiratory failure. 4. Hypernatremia. 5. Leukocytosis. 6. Diabetes mellitus, diet controlled. 7. Hypothyroidism, chronic. 8. Hypertension, chronic. PROCEDURES AND FINDINGS: Initial chest x-ray on 06/06/2019 is a negative exam. Chest x-ray on 06/09/2019 does show small bibasilar infiltrates. Chest x-ray done on 06/12/2019 shows improvement of left lower lobe atelectasis. HOSPITAL COURSE: Mr. Maxwell is a 64-year-old male who presents with recurrent pneumonia who stated he had been coughing for about a week and was producing green-white phlegm and fever for 3 days with wheezing. The patient does have a past medical history of COPD. He was admitted to the medical floor. He was treated for a COPD exacerbation and possible acute pneumonia. He was placed on oxygen, IV antibiotics, and was started on DuoNeb treatments. Chest x-ray did eventually show bibasilar pneumonia. The patient was noted to have some hyperglycemia with no previous history of diabetes. A1c was noted to be 6.9. Breathing continued to improve. The patient is being discharged today. DISCHARGE MEDICATIONS: 1. Amlodipine 10 mg p.o. daily. 2. Gabapentin 1200 mg p.o. daily. 3. Acetaminophen/hydrocodone 1 tablet p.o. q.8 hours p.r.n. 4. Baclofen 10 mg p.o. b.i.d. p.r.n. 5. Albuterol sulfate ProAir inhaler 4 puffs inhaled every 4 hours as needed. 6. Synthroid 50 mcg p.o. daily. 7. Doxycycline 100 mg p.o. q.12 hours. 8. Albuterol and Atrovent inhaler q.2 hours p.r.n. 9. Medrol Dosepak 4 mg as directed. 10. Robaxin 750 mg p.o. q.4 hours as needed. 11. Robitussin AC 10 mL p.o. q.4-6 hours p.r.n. DISCHARGE DIET: Patient is to resume a healthy heart diet as tolerated. DISCHARGE ACTIVITY: Patient will resume activity as tolerated. DISCHARGE INSTRUCTIONS: 1. Patient is to follow up with his business systems administrator, Ashish Morrison, in 1 to 2 weeks or sooner if necessary. Patient is to call and schedule an appointment. 2. The patient is to refrain from any smoking or alcohol. 3. The patient is to notify his business systems administrator with any questions or concerns. Dictated by KINDRA Ruvalcaba for Isaiah Dill MD cc: MD Ashish Vallejo MD MTDD
== END 2019-06-13 10:01 | disposition home or self-care (01) | DRG 193 ==
LOC: P.ED 07:51 → P.EDIPHOLD 15:32 → P.MEDSURG 22:15
PROVIDERS: ATTEND Family Medicine